=== PATIENT | male | born 1935 | race Caucasian/White ===

== ENCOUNTER 2017-06-03 13:44 | Inpatient (IN) ==
[2017-06-03 14:25] LABS: MANUAL DIFF NEEDED? NO
[2017-06-03 14:31] LABS: BASO% 0.2 % (0.0-0.8); EOS# 0.22 X1000 (0.0-0.7); EOS% 3.9 % (0.0-10.0); HEMATOCRIT 22.6 % (42.0-52.0); HEMOGLOBIN 6.8 g/dL (14.0-18.0); LYMPH# 1.91 X1000 (1.2-3.4); LYMPH% 33.9 % (20.5-51.1); MCH 25.9 PG (27-31); MCHC 30.1 g/dL (33-37); MCV 85.9 FL (81-99); MONO# 0.77 X1000 (0.11-0.59); MONO% 13.7 % (1.7-9.3); MPV 10.7 FL (7.4-10.4); NEUT% 48.3 % (42.2-75.2); PLT 252 X1000 (130-400); RBC 2.63 XMIL (4.7-6.1)
[2017-06-03 15:16] LABS: ALBUMIN 3.9 g/dL (3.5-5.0); CALCIUM 8.8 mg/dL (8.8-10.2); POTASSIUM 4.1 mmol/L (3.5-5.1); TOTAL BILIRUBIN 0.1 mg/dL (0.20-1.00); TOTAL PROTEIN 6.7 g/dL (6.3-8.3)
[2017-06-03] MEDS ORDERED: NS 1,000 ML IV SCH (19:00)
[2017-06-03 19:39] LABS: URINE SOURCE CLEAN CATCH
[2017-06-03 20:01] LABS: BILIRUBIN URINE NEGATIVE (NEGATIVE); BLOOD URINE LARGE (NEGATIVE); COLOR BROWN; GLUCOSE URINE NEGATIVE (NEGATIVE); LEUKOCYTES URINE SMALL (NEGATIVE); NITRITE URINE NEGATIVE (NEGATIVE); PH URINE 6.5; PROTEIN URINE 100 mg/dL (NEGATIVE); SP GRAVITY URINE 1.006; TURBIDITY URINE TURBID (CLEAR); UR EPITHELIAL CELLS <10 /HPF (<10); URINE BACTERIA NEGATIVE /HPF; URINE CULTURE NEEDED? YES; URINE MICRO REVIEW NEEDED? YES; URINE RBC TNTC /HPF (<10); UROBILINOGEN URINE NORMAL (NORMAL)
[2017-06-03 20:06] LABS: URINE CASTS NONE SEEN; URINE CRYSTALS NONE SEEN; URINE SMALL ROUND CELLS NONE SEEN
[2017-06-03] MEDS: CATAPRES PO PRN (20:22)
[2017-06-04] MEDS: CATAPRES PO PRN ×2 (04:22→13:01)
[2017-06-04 06:00] LABS: HEMATOCRIT 27.8 % (42.0-52.0); HEMOGLOBIN 8.9 g/dL (14.0-18.0); MCH 27.6 PG (27-31); MCV 86.3 FL (81-99); MPV 12.1 FL (7.4-10.4); RBC 3.22 XMIL (4.7-6.1)
[2017-06-04 06:23] LABS: AGAP 12; BUN 22 mg/dL (8-22); CALCIUM 8.4 mg/dL (8.8-10.2); CHLORIDE 105 mmol/L (98-107); COSMO 289; HDL 37 mg/dL (35-55); IRON SATURATION 91 %; LDL 56 mg/dL; POTASSIUM 3.9 mmol/L (3.5-5.1); SODIUM 143 mmol/L (136-145); TCO2 26 mmol/L (25-35); TIBC 281 ug/dL; TOTAL IRON 257 ug/dL (53-167); TRIGLYCERIDES 113 mg/dL (39-160); UNBOUND IRON 24 ug/dL (112-346); VLDL 23 mg/dL
[2017-06-04] MEDS ORDERED: BYSTOLIC PO SCH (10:45)
[2017-06-04] MEDS ORDERED: BENICAR PO SCH (10:45)
[2017-06-04 12:32] VITALS: BP 197/69
[2017-06-04] MEDS ORDERED: ELMIRON PO SCH (13:00)
[2017-06-04] MEDS ORDERED: LIPITOR PO SCH (21:00)
[2017-06-05] MEDS ORDERED: LOZOL PO SCH (09:00)
== END 2017-06-04 14:24 | disposition home or self-care (01) ==
LOC: ED 13:44 → 4N 17:46 → SUATTDRO 17:46
PROVIDERS: ATTEND Internal Medicine

== ENCOUNTER 2019-04-26 22:31 | Observation (INO) ==
[2019-04-26] MEDS ORDERED: NS 1,000 ML IV ONE (23:04)
[2019-04-26 23:56] LABS: BASO# 0.01 X1000 (0.0-0.2); BASO% 0.1 % (0.0-0.8); EOS% 4.2 % (0.0-10.0); HEMATOCRIT 30.5 % (42.0-52.0); HEMOGLOBIN 9.6 g/dL (14.0-18.0); IMM GRAN# 0.02 X1000 (0.0-0.04); IMM GRAN% 0.3 % (0.0-0.5); LYMPH# 2.34 X1000 (1.2-3.4); MCH 26.7 PG (27-31); MCHC 31.5 g/dL (33-37); MCV 84.7 FL (81-99); MONO# 0.89 X1000 (0.11-0.59); MONO% 12.5 % (1.7-9.3); MPV 10.8 FL (7.4-10.4); NEUT# 3.54 X1000 (1.4-6.5); NEUT% 49.9 % (42.2-75.2); PLT 162 X1000 (130-400); RDW 14.5 % (11.5-14.5)
[2019-04-27 00:12] LABS: INR 1.12; PROTIME 14.5 Seconds (11.0-16.0)
[2019-04-27 00:13] LABS: PTT 35.2 Seconds (22.3-41.8)
[2019-04-27 00:23] LABS: AGAP 13; ALB/GLOB RATIO 1.3; ALBUMIN 3.8 g/dL (3.5-5.0); ALKALINE PHOSPHATASE 107 U/L (32-122); BUN 44 mg/dL (8-22); CHLORIDE 103 mmol/L (98-107); COSMO 286; CREATININE 2.1 mg/dL (0.7-1.2); ESTIMATED GFR 30; GLUCOSE 113 mg/dL (70-104); GOT 16 U/L (10-34); GPT 10 U/L (10-44); SODIUM 137 mmol/L (136-145); TCO2 21 mmol/L (25-35); TOTAL BILIRUBIN < 0.15 mg/dL (0.20-1.00); TOTAL PROTEIN 6.7 g/dL (6.3-8.3)
[2019-04-27 00:58] LABS: URINE SOURCE CLEAN CATCH
[2019-04-27 01:14] LABS: BILIRUBIN URINE NEGATIVE (NEGATIVE); BLOOD URINE MODERATE (NEGATIVE); COLOR YELLOW; GLUCOSE URINE NEGATIVE (NEGATIVE); KETONE URINE NEGATIVE (NEGATIVE); LEUKOCYTES URINE MODERATE (NEGATIVE); NITRITE URINE NEGATIVE (NEGATIVE); PH URINE 5.5; PROTEIN URINE 100 mg/dL (NEGATIVE); SP GRAVITY URINE 1.011; UR EPITHELIAL CELLS <10 /HPF (<10); URINE BACTERIA NEGATIVE /HPF; URINE RBC TNTC /HPF (<10); UROBILINOGEN URINE NORMAL (NORMAL)
[2019-04-27 01:17] LABS: TURBIDITY URINE CLEAR (CLEAR)
--- NOTE | 2019-04-27 01:35 | EKG Report ---
Test Performed on : 04/27/2019 01:03:16 AM Test Reason : weakness Blood Pressure : / mmHG Vent. Rate : 068 BPM Atrial Rate : 068 BPM P-R Int : 178 ms QRS Dur : 076 ms QT Int : 406 ms P-R-T Axes : 026 011 119 degrees QTc Int : 431 ms Normal sinus rhythm. Left ventricular hypertrophy with repolarization abnormality Abnormal ECG When compared with ECG of 18-MAR-2019 13:29, T wave inversion less evident in Inferior leads Unconfirmed Result
--- NOTE | 2019-04-27 02:49 | PROVIDER DOCUMENTATION ---
This chart was entered by Mirela Cedeno Scribe, acting as scribe for Sandeep Baron MD. HPI-General Adult - General Chief Complaint: General Adult Stated Complaint: decreased responsiveness Time Seen by Provider: 04/26/19 22:40 Source: patient Allergies/Adverse Reactions: Patient Allergies Allergy/AdvReac Type Severity Reaction Status Date / Time No Known Allergies Allergy Verified 04/26/19 23:10 Home Medications: Home Medication List Medication Instructions Recorded Confirmed Last Taken Type Calcium Carbonate/Vitamin D3 [Hm 1 tab PO DAILY 04/26/19 04/26/19 Unknown History Calcium 600-Vit D3 800 Tab] Indapamide 1.25 mg PO DAILY 04/26/19 04/26/19 Unknown History Mirtazapine 30 mg PO DAILY 04/26/19 04/26/19 Unknown History Multivits,Ca,Minerals/Iron/FA 1 tab PO DAILY 04/26/19 04/26/19 Unknown History [Thera-M Tablet] Nebivolol HCl [Bystolic] 10 mg PO DAILY 04/26/19 04/26/19 Unknown History Olmesartan Medoxomil 40 mg PO DAILY 04/26/19 04/26/19 Unknown History Ondansetron [Zofran] 4 mg PO PRN PRN 04/26/19 04/26/19 Unknown History Pentosan [Elmiron] 100 mg PO TID 04/26/19 04/26/19 Unknown History Tramadol HCl 50 mg PO 4XDAY PRN PRN 04/26/19 04/26/19 Unknown History Vitamin B Complex [B Complex] 1 tab PO DAILY 04/26/19 04/26/19 Unknown History Zinc Sulfate 220 mg PO BID 04/26/19 04/26/19 Unknown History - History of Present Illness -Gen Adult Nature of Presenting Problems: Pt is 83 M presenting to ED via EMS. Pt sts that he was watching a ball game and the next thing he knows he woke up to fire rescue in his . Pt sts that he was told that his family first found him to be unresponsive and then started doing compressions while calling for ambulance. Pt sts that he feels okay now, just a little weak. Location of Pain/Injury: reports: none Pain Radiation: reports: no radiation Quality of Pain: reports: none Severity: reports: mild Onset/Duration: reports: just prior to arrival Timing: reports: gone now Context/Activities at Onset: reports: none Modifying Factors: improves with: nothing Associated Symptoms: reports: syncope. denies: chest pain, fever/chills, nausea, sensory/motor loss, vomiting Similar Symptoms Previously?: No Recently seen or treated by another doctor?: No Review of Systems - Adult - REVIEW OF SYSTEMS - ADULT Constitutional: reports: no symptoms reported. denies: chills, fever Eyes: reports: no symptoms reported Ears, Nose, Mouth & Throat: reports: no symptoms reported Cardiovascular: reports: syncope. denies: chest pain Respiratory: reports: no symptoms reported Gastrointestinal: reports: no symptoms reported. denies: abdominal pain, diarrhea, nausea, vomiting Genitourinary: reports: no symptoms reported Musculoskeletal: reports: no symptoms reported Integumentary: reports: no symptoms reported Neurological: reports: no symptoms reported. denies: dizziness/vertigo, headache/migraines Psychiatric: reports: no symptoms reported Endocrine: reports: no symptoms reported Hematologic/Lymphatic: reports: no symptoms reported Allergic/Immunologic: reports: no symptoms reported All Other Systems: Reviewed and Negative Past History - Adult - PAST MEDICAL HISTORY-ADULT Review of Records: reports: Old Records Reviewed, Nursing Assessment Review, Medications Reviewed, Social history reviewed & non-contributory. Major Childhood Illnesses: reports: denies history Cardiovascular: reports: HTN, hyperlipidemia Respiratory: reports: denies history Gastrointestinal: reports: cancer (stomach) Obstetrical/Gynecological: reports: denies history Genitourinary: reports: retention, prostate cancer, other (hematuria) Musculoskeletal: reports: denies history Neurological: reports: denies history Endocrine/Immune: reports: denies history Other Conditions: reports: denies history - PRIOR SURGERIES/PROCEDURES Surgical/Procedure History: reports: other (cystoscopy, TURP) - PRIOR HOSPITALIZATIONS Prior Hospitalizations: reports: none - IMMUNIZATION STATUS Childhood Immunizations: See Nurse Assessment Flu Vaccine: See Nurse Assessment - FAMILY HISTORY Family History: reviewed, not pertinent - SOCIAL HISTORY Smoking: quit greater than 1 year Substance Use: none/never Alcohol Use Frequency: never Living Situation: family Physical Exam-General - PHYSICAL EXAM-ADULT Initial Vital Signs Reviewed: Yes - CONSTITUTIONAL General Appearance: appears well, alert, no apparent distress, other (pt is non toxic in appearance) - EYES Eyes: PERRL/EOMI, pink conjunctivae - HEAD, EARS, NOSE, MOUTH & THROAT HENMT: normocephalic/atraumatic, moist mucous membranes, normal ENT inspection - NECK Neck: non-tender, full range of motion, supple - RESPIRATORY Respiratory: lungs clear - CARDIOVASCULAR Cardiovascular: regular rate, rhythm - GASTROINTESTINAL (ABDOMEN) Abdominal Exam: non tender, soft - LYMPHATIC Lymphatic: no adenopathy - MUSCULOSKELETAL Back Exam: normal inspection Extremity: normal range of motion, non-tender, normal gait, normal inspection - SKIN Integumentary: normal color, warm/dry - NEUROLOGIC Neurologic: grossly normal - PSYCHIATRIC Psych/Mental Status: normal mood/affect, normal thought content, normal thought process, oriented x 3 Progress - PLAN OF CARE/RESULTS Progress/Plan/Lab Results: Vital Signs - 8 hr 04/26/19 22:42 Temperature 98 F Pulse Rate 63 Respiratory Rate 15 Blood Pressure 193/84 O2 Sat by Pulse Oximetry 97 Result Diagrams: 04/26/19 20:16 04/26/19 20:16 - EKG 1 Time of EKG reading by physician:: 01:03 EKG Read and Signed by:: Sandeep Baron EKG Interpretation (*Must complete 3 of following elements*): Abnormal (normal sinus rhythm, Left ventricular hypertrophy with repolarization abnormality. Abnormal ECG) Rate: 68 Rhythm: NSR Mcgrew: normal QRS: normal MT Interval: normal Departure - Departure Date of Disposition Decision: 04/27/19 Time of Disposition Decision: 02:48 DIAGNOSIS: Syncope Qualifiers: Syncope type: unspecified Qualified Code(s): R55 - Syncope and collapse Disposition: ADMITTED INPATIENT 09 Certified Medical Emergency: Emergent Condition: Stable Referrals and Follow-Ups: Floyd Green [Primary Care Provider] - - Critical Care Note This patient required my direct & personal management of CC.: No Attestation - Physician/ LIBERTAD Attestation Patient care was provided by Advanced Practice Provider:: No The physician spent face to face time with patient:: Yes Advanced Practice Provider documentation review:: Supervising physician onsite and consulted in the evaluation and care of this patient. The physician did have a face to face encounter with the patient. This chart was documented by the indicated scribe, (Mirela Cedeno Scribe) and accurately reflects the services I performed and decisions made by me, Sandeep Baron MD, as attested by the provider's signature.
[2019-04-27] MEDS ORDERED: ULTRAM PO PRN (04:59)
[2019-04-27] MEDS ORDERED: TYLENOL PO PRN (05:01)
[2019-04-27] MEDS ORDERED: ZOFRAN IV PRN (05:01)
[2019-04-27] MEDS ORDERED: LOZOL PO SCH ×2 (05:12→09:00)
[2019-04-27] MEDS ORDERED: BYSTOLIC PO SCH ×2 (05:15→09:00)
[2019-04-27] MEDS ORDERED: BENICAR PO SCH ×2 (05:15→09:00)
--- NOTE | 2019-04-27 06:20 | Diag Imaging Result Doc PS360 ---
CHEST-1 VIEW - 04/26/2019 INDICATION: weakness COMPARISON: 01/07/2017 FINDINGS: There is a new right chest port in good position. The lungs are clear. Heart size is normal. No pneumothorax or pleural effusion. IMPRESSION: Negative exam. Electronically signed by Wil Hinds 04/27/2019 6:18 AM
--- NOTE | 2019-04-27 07:31 | HISTORY AND PHYSICAL ---
PRIMARY CARE PROVIDER: Dr. Floyd Green. DATE AND TIME: 04/27/2019 at 0330. CHIEF COMPLAINT: Syncope. HISTORY OF PRESENT ILLNESS: Mr. Patel is an 83-year-old male who states that he was sitting in a chair watching the football game and that is the last thing he remembers. He states that he thinks he fell asleep though the next thing he remembered was lying on his living room floor with lots of people standing around him. His that was at bedside stated that they tried to awake Mr. Patel up though could not get him. They called his son and ended up coming over, who also tried to wake him up though could not. They said they felt this pulse, and it was present though was slow. They did decide to do just a couple of chest compressions, and the patient woke up immediately. The patient except for some weakness prior to sitting down to watch the game denied any symptoms prior to or after he had woken. He denies any headache, dizziness, visual disturbances, chest pain or shortness of breath. He denies any abdominal pain, nausea, vomiting, or diarrhea. He denies any dysuria or urinary frequency. He denies any pain, numbness, tingling or swelling of the extremities. He denies any fever, body aches, or chills. His son reports that he has done this one time before though this was not recently. They do state that he does receive immunotherapy treatments for bladder cancer every other week with Dr. Espinoza. He did receive a treatment on Saturday or . They state that usually for the few days after his treatment that he will not feel well and will fill weak sometimes, but this is a common thing that he experiences. At this time, the patient is alert and oriented x4. He has not had any focal neurological deficits noted. He has equal hand grasps and muscle strength bilaterally. He is denying any numbness or tingling in extremities. His family denies him having any speech disturbances either. Upon arrival to the ER, patient's vital signs were temperature 98 degrees, heart rate 63, respirations 15, blood pressure is 193/84 with oxygen saturation of 97%. The patient's blood pressure was elevated. He states that he has not missed any doses of his blood pressure medicines, and that he takes these in the morning. He states at home his blood pressure normally does run in the 170s systolically. EKG showed a normal sinus rhythm with a left ventricular hypertrophy at a rate of 68 with a QTc of 431. CT Head without contrast showed no acute intracranial abnormality. Chest x-ray showed no acute abnormality either. We are awaiting official radiology. Laboratory results revealed some mild anemia with a hemoglobin of 9 and hematocrit of 30 though this does appear to be the patient's baseline. He also does have chronic kidney disease with a creatinine of 2.1 though this does appear to be pretty much at his baseline as well. Troponin was negative. The patient did receive 1 L normal saline bolus in the ER. He will be placed for observation services for further evaluation of his syncope. REVIEW OF SYSTEMS: A 14 point review of systems was conducted with the patient, and all were negative except for pertinent positives mentioned above in HPI. PAST MEDICAL HISTORY: 1. Coronary artery disease status post cardiac stent placement. 2. Erectile dysfunction. 3. History of gastric cancer with resection followed by radiation chemotherapy in 2007. 4. History of prostate cancer, Madelin 3 to 4, status post radiation in 2001. 5. Hypertension. 6. History of fossa navicularis. 7. History of proximal bulbar strictures. 8. Urinary retention. 9. Currently, receiving treatment for bladder cancer with immunotherapy with Dr. Espinoza every 2 weeks. He is also followed by Dr. Garibay. PAST SURGICAL HISTORY: 1. History of numerous cystoscopy's. 2. Surgery for clot evacuation. 3. Partial gastrectomy. [place] 1. 4. Radiation for prostate cancer as mentioned above. 5. Placement of right subclavian port secondary to poor intravenous access. SOCIAL HISTORY: The patient states that he occasionally smoked when he was in his 30s, though has been quit since then. He has not drank any alcohol. He has no known history of illicit drug use. He is and his was present at bedside during our examination. FAMILY HISTORY: He reports that his mother and father both lived into their 90s, and were otherwise healthy. They from natural causes of old age. ALLERGIES: Patient has no known allergies. HOME MEDICATIONS: 1. Calcium-vitamin D3 800 tablet 1 tablet p.o. daily. 2. Indapamide 1.25 mg p.o. daily. 3. Mirtazapine 30 mg p.o. daily. 4. Thera M tablet 1 tablet p.o. daily. 5. Bystolic 10 mg p.o. daily. 6. Olmesartan 40 mg p.o. daily. 7. Zofran 4 mg p.o. p.r.n. as directed for nausea. 8. Elmiron 100 mg p.o. t.i.d. 9. Tramadol 50 mg p.o. 4 times a day p.r.n. for pain. 10. Vitamin B complex 1 tablet p.o. daily. 11. Zinc sulfate 220 mg p.o. b.i.d. DIAGNOSTIC DATA/LABORATORY RESULTS: 1. White blood cell count is 7110, hemoglobin 9.6, hematocrit 30.5, and platelet count is 162,000. PT 14.5, INR 1.12, and PTT is 35.2. Sodium 137, potassium 4, chloride 103. Serum bicarb is 21, BUN 44, and creatinine 2.1 with GFR 30. Glucose 113. Calcium 9. Liver function tests within normal limits. Troponin 0.015. ProBNP is 2373. Plasma lactate is 1.4. Urinalysis was obtained via clean catch, and was positive for protein, moderate blood, moderate leukocytes, and was negative for glucose, ketones, nitrites, or bacteria. 2. CT of the head without contrast showed no acute intracranial hemorrhage or process. There was age-related cerebral volume loss. There were bilateral white matter disease likely ischemic microvascular in nature. 3. Chest x-ray shows no acute abnormalities. There is what appears to be a right chest port placement. We are waiting official Radiology over-read. 4. EKG showed normal sinus rhythm with left ventricular hypertrophy with repolarization abnormality at a rate of 68 and QTc of 431. PHYSICAL EXAMINATION: VITAL SIGNS: Temperature 97.8 degrees, heart rate 67, respirations 20, blood pressure was 191/75, and oxygen saturation is 96% on room air. GENERAL: Mr. Patel is a very pleasant 83-year-old male who is resting on the ER stretcher. He was in no acute distress. He was awake, alert, and able to answer questions appropriately. HEENT: Head is atraumatic, normocephalic. Pupils are equal, round, and reactive to light, and were 3 mm bilaterally and brisk. Oral mucosa was moist. Oropharynx clear. NECK: Supple. Trachea midline. CARDIOVASCULAR: Patient has S1-S2 present. No murmurs, gallops, or rubs appreciated with a regular rate and rhythm. PULMONARY: Patient has symmetrical chest expansion bilaterally. Lung sounds are clear to auscultation in bilateral full steele. ABDOMEN: Soft. Nontender and nondistended. Bowel sounds are present in all 4 quadrants, and were normoactive. EXTREMITIES: No cyanosis or edema noted. Pulse, motor, and sensory were intact in all extremities. Radial and pedal pulses are 2+ bilaterally. INTEGUMENTARY: The patient's skin is pink, warm, and dry. NEUROLOGICAL: Patient is alert and oriented to person, place, time, and situation. There is no facial droop noted. There is no arm drift noted either. The patient has equal hand grasp and muscle strength bilaterally. The patient's speech is clear and understandable. He is able to move all extremities. He is denying any numbness or tingling. At this time, there are no focal neurological deficits noted. ASSESSMENT AND PLAN: 1. Possible syncopal episode. The patient reports that he did sit down in his chair, and the next thing he knew he woke up and there was lots of people standing around him. We are unsure at this time if this was a syncopal episode or if the patient was sleeping really hard. Other than feeling weak since receiving his immunotherapy treatment earlier in the week, he has reported no other symptoms at this time. We will continue with the series of cardiac enzymes. We will perform an echocardiogram in the morning. As mentioned above, his CT of his head showed no acute intracranial abnormality. We will continue to follow closely. He will be on continuous cardiac telemetry with q.4 hours vital signs. 2. Chronic kidney disease. At this time, the patient's renal function does appear to be at baseline. We will continue to monitor this closely. We will avoid nephrotoxic medications and renally dose medicines as necessary. We will continue to follow. 3. Hypertension. The patient's blood pressure is slightly elevated at this time. We will go ahead and administer his regularly prescribed morning medications. The patient states he normally takes these around 05:30 to 06:00 at home. 4. Current History urothelial carcinoma for which he is receiving immunotherapy for. He is followed by Dr. Espinoza and Dr. Garibay. The patient did have blood and moderate leukocytes noted in his urine, though he is asymptomatic at this time. This is likely related to his current bladder cancer. We will continue to monitor this closely. We will order a urine culture. 5. Deep vein thrombosis prophylaxis. He will be provided with sequential compression devices. The patient has been placed on the medical floor telemetry. He will have vital signs q.4 hours. Do strict intake and output, and incentive spirometry. He will be on a heart healthy diet. Further orders and recommendations pending hospital course, diagnostic studies, and physician evaluation. Dictated by SHALONDA Caceres for Zac Kathleen MD cc: Floyd Green MD agree with the above. the following is my own face to face assessment. heart: RRR, lungs: CTAB. possible syncopal episode but may have just been very asleep will check out his heart and monitor on telemetry. JILLIAN
[2019-04-27 07:43] LABS: CALCIUM 8.5 mg/dL (8.8-10.2); MAGNESIUM 2.2 mg/dL (1.5-2.7); POTASSIUM 4.1 mmol/L (3.5-5.1)
--- NOTE | 2019-04-27 07:52 | Diag Imaging Result Doc PS360 ---
EXAM: CT HEAD W/O CONTRAST INDICATION: syncope TECHNIQUE: This exam was performed using automated exposure control, adjustment of mA or kV according to patient size, and/or use of iterative reconstruction technique. COMPARISON: 09/29/2013 FINDINGS: There is moderate diffuse brain atrophy and moderate white matter microangiopathy that may be marginally worse than the prior study in 2013. There is no definite acute infarct given the limited sensitivity of CT versus MRI. There is no discrete intracranial mass, mass effect, or intracranial hemorrhage. The surrounding soft tissues and bony structures are essentially unremarkable. IMPRESSION: Atrophy and chronic appearing white matter changes as described. No definite acute intracranial pathology by CT. Electronically signed by Mandeep Stanley 04/27/2019 7:49 AM
[2019-04-27] MEDS ORDERED: REMERON PO SCH (09:00)
[2019-04-27] MEDS ORDERED: VICON-C PO SCH (09:00)
[2019-04-27] MEDS ORDERED: CALTRATE 600 + D PO SCH (09:00)
[2019-04-27] MEDS ORDERED: THERA M PLUS PO SCH (09:00)
[2019-04-27] MEDS ORDERED: ZINC SULFATE PO SCH (09:00)
[2019-04-27 09:14] LABS: BASO# 0.01 X1000 (0.0-0.2); BASO% 0.1 % (0.0-0.8); HEMOGLOBIN 9.5 g/dL (14.0-18.0)
[2019-04-27] MEDS: ELMIRON PO SCH ×2 (09:24→13:57)
[2019-04-27 10:20] LABS: EOS# 0.23 X1000 (0.0-0.7); HEMATOCRIT 30.5 % (42.0-52.0); IMM GRAN# 0.02 X1000 (0.0-0.04); IMM GRAN% 0.3 % (0.0-0.5); LYMPH# 2.02 X1000 (1.2-3.4); LYMPH% 26.6 % (20.5-51.1); MCH 26.6 PG (27-31); MCHC 31.1 g/dL (33-37); MCV 85.4 FL (81-99); MONO# 0.73 X1000 (0.11-0.59); MONO% 9.6 % (1.7-9.3); MPV 9.9 FL (7.4-10.4); NEUT# 4.59 X1000 (1.4-6.5); NEUT% 60.4 % (42.2-75.2); PLT 201 X1000 (130-400); RBC 3.57 XMIL (4.7-6.1); RDW 14.6 % (11.5-14.5)
[2019-04-27 11:35] VITALS: BP 188/65
--- NOTE | 2019-04-27 13:41 | ECHO REPORT ---
ORDER DATE: 04/27/2019 INDICATIONS: Syncope. FINDINGS: 1. The right atrium appears normal in size. 2. Trace tricuspid regurgitation. RV systolic pressure of 26. 3. Normal RV size and systolic function. 4. No significant pulmonic insufficiency. 5. Mild left atrial enlargement with a volume index of 31. 6. No mitral valve prolapse. Mild mitral regurgitation. No evidence of mitral stenosis. 7. Normal LV size, end-diastolic dimension of 4.1. Suggestion of mild to moderate left ventricular hypertrophy with an interventricular septal wall thickness of 1.4 cm. Normal LV systolic function. Calculated EF of 67%. 8. Aortic valve appears to open well. It is sclerotic but does not appear to be stenotic. There is trace insufficiency with no stenosis. 9. Aorta appears normal in visualized segments. 10. No pericardial effusion seen. cc: Aj Rodriguez MD
--- NOTE | 2019-04-28 12:58 | Carotid Study ---
DATE: 04/27/2019 PROCEDURE: Bilateral carotid duplex. REQUESTING PHYSICIAN: Benito Morales MD. INTERPRETING PHYSICIAN: Noble Ashby MD. TECH: [place]. INDICATIONS: Syncope. FINDINGS: In the right carotid artery system in the bulb extending to the proximal internal carotid artery, there is a broad-based calcified plaque that causes slight disturbance of flow but does not significantly elevate the velocity. In the left, there is a more focal appearing smooth plaque into the carotid bulb, again it does not cause significant elevation of velocity. SUMMARY: Mild degree of atherosclerotic changes noted in the bilateral carotid bulbs morphologically slightly worse in the right, however, velocities remain in the 0-39% range. The vertebrals are antegrade bilaterally. cc: MD Benito Hill MD
== END 2019-04-27 14:23 | disposition home or self-care (01) ==
LOC: SUPCPDRO → ED 22:31 → SUATTDRO 04-27 04:10 → 4N 04-27 04:10 → INTOOBSV 04-27 04:10
PROVIDERS: ATTEND Internal Medicine

== ENCOUNTER 2019-06-18 12:02 | Inpatient (IN) ==
[2019-06-18] MEDS ORDERED: DIPRIVAN 1% ONE (12:40)
[2019-06-18] MEDS ORDERED: ROBINUL ONE (12:41)
[2019-06-18] MEDS ORDERED: XYLOCAINE-MPF 2% ONE (12:41)
[2019-06-18] MEDS ORDERED: KEFZOL 1 GM/D5W 1 GM/50 ML IVPB ONE (13:07)
[2019-06-18] MEDS ORDERED: LR 1,000 ML ONE (13:08)
[2019-06-18] MEDS ORDERED: FENTANYL ONE (14:22)
[2019-06-18] MEDS ORDERED: DECADRON ONE (14:34)
[2019-06-18] MEDS ORDERED: ZOFRAN ONE (14:34)
--- NOTE | 2019-06-18 15:07 | Diag Imaging Result Doc PS360 ---
EXAM: FLUROSCOPY CYSTO HISTORY: T CELL CA, ATTEMPTED STENT EXCHANGE TECHNIQUE: Six views COMPARISON: None. FINDINGS: There are bilateral ureteral stents. Attempted stent exchange. This was unsuccessful. Electronically signed by Afshin Pickard 06/18/2019 3:04 PM
[2019-06-18] MEDS ORDERED: EPHEDRINE ONE (15:10)
[2019-06-18] MEDS ORDERED: ZOSYN IV ONE (15:15)
[2019-06-18] MEDS ORDERED: NEO-SYNEPHRINE ONE (15:30)
[2019-06-18] MEDS ORDERED: STERILE WATER INJ. ONE (15:32)
[2019-06-18] MEDS ORDERED: ZOSYN 3.375 GM in NS 50 ML IV ONE (16:00)
[2019-06-18] MEDS ORDERED: NEOSTIGMINE ONE (16:42)
[2019-06-18] MEDS ORDERED: BRIDION ONE (16:49)
[2019-06-18] MEDS: DILAUDID ONE ×4 (17:20→17:36)
[2019-06-18] MEDS ORDERED: NS 1,000 ML ONE (17:42)
[2019-06-18] MEDS ORDERED: REGLAN PO PRN (18:22)
[2019-06-18] MEDS ORDERED: MORPHINE IV PRN (18:39)
[2019-06-18] MEDS ORDERED: SODIUM CHLORIDE 0.9% INJ PRN (18:45)
[2019-06-18] MEDS ORDERED: NORCO-5 PO PRN (18:45)
[2019-06-18] MEDS ORDERED: NORCO-10 PO PRN (18:45)
[2019-06-18] MEDS ORDERED: BENADRYL LIQUID PO PRN (18:45)
[2019-06-18] MEDS ORDERED: LABETALOL IV PRN (18:45)
[2019-06-18] MEDS ORDERED: NORCO-7.5 PO PRN (18:45)
[2019-06-18] MEDS ORDERED: DITROPAN PO PRN (18:45)
[2019-06-18] MEDS: NS 1,000 ML IV SCH (19:06)
--- NOTE | 2019-06-18 19:20 | GENERAL SURGERY CONSULTATION ---
DATE: 06/18/2019 INTRAOPERATIVE CONSULT: Called to see the patient while Dr. Garibay was doing a cystoscopy on the patient. There was concern about a bladder wall tear, and seeing intestinal contents and intra- abdominal contents. The patient has a significant history of cancer and metastatic cancer with treatment including radiation. Given this, we had a discussion with the family and took the patient emergently to the operating room, performed a standard lower midline incision. He had significant adhesions at this time, and I assisted Dr. Garibay with his procedure. He did not have any obvious injury to his intestines noted during the surgery. He did have a closely adherent sigmoid colon to his bladder, but I felt as though this was not causing any acute issues. We decided to leave this alone for now. I was unable to get a full history and physical exam given the circumstances, but assisted Dr. Garibay during the procedure. Please see his dictation. cc: MD Dick Arcos MD MTDD
--- NOTE | 2019-06-18 19:35 | OPERATIVE NOTE ---
PROCEDURE DATE: 06/18/2019 SURGEON: Dr. Garibay. CHICK SEXER SURGEON: [employer] Developer surgeon for the exploratory laparotomy is Dr. Veloz. 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 ANESTHESIA: For the cystoscopic exam, general via laryngeal mask. For the exploratory laparotomy, general endotracheal. FINDINGS: Cystoscopic exam: Urethra with metastatic cancer with a very narrowed urethra of about 20-Taiwanese from the meatus all the way to the external sphincter. A 21-Taiwanese sheath cystoscope was able to be pushed through the urethra through the external sphincter. Prostate status post radiation therapy very fixed with regrowth of the lateral lobes. Bladder neck significantly elevated and fixed. There was a perforation or erosion of the posterior bladder neck/proximal urethra at the 6 o'clock position. The 21-Taiwanese rigid scope would not go into the bladder. It was removed, and the flexible ACMI scope was able to go up into the bladder where stone-encrusted double-J stents were noted, multiple tumor nodules from his known urothelial carcinoma. The flexible cystoscope was removed. Because the perforation appeared to go into the peritoneal cavity, it was decided to do exploratory laparotomy. DESCRIPTION OF PROCEDURE: After informed consent was obtained, he was taken to the main OR cystoscopy room and placed in the supine position. General anesthesia via laryngeal mask was achieved. He was then placed in the low lithotomy position and prepped and draped in the usual sterile fashion for lower abdominal surgery and cystoscopic exam. His indwelling Pozo catheter was removed, and the 21-Taiwanese sheath cystoscope had to be pushed through the urethra and to the external sphincter. It was advanced up through the prostatic urethra and into a cavity that was initially thought to be the bladder but was then seen to be the peritoneal cavity. The cystoscope was removed, and a flexible ACMI cystoscope was passed through the patient's urethra, prostate, and was able to be flexed up to go up into the bladder with findings as noted above. Because of the perforation and going into the peritoneal cavity, it was decided to go to an open room and do an exploratory laparotomy. The flexible scope was removed. The patient was taken to an open room. The patient then underwent general endotracheal anesthesia. While in the supine position, he was then prepped and draped in the usual sterile fashion for abdominal surgery. A lower midline skin incision was made from the top of the pubic bone to just to the left of the umbilicus. This was taken through subcutaneous tissue with the Bovie electrocautery. The abdominal rectus fascia was opened to the limits of the skin incision. The posterior sheath was opened. The peritoneum was opened, and a large amount of irrigant from the cystoscopic exam was removed. The patient had undergone previous radiation therapy for prostate cancer and is currently undergoing immunotherapy for his metastatic bladder cancer. He had significant metastatic nodules that were palpable. The area above the pubic bone was explored, and finally the bladder was found and entered. The double-J stents were visualized. A 0.035 ZIPwire was passed through the right double-J stent and was thought to be going into the right renal pelvis but was not. The double-J stent had some stone incrustation and it was removed. The left side was wide open, and the 0.035 ZIPwire easily passed up into the left kidney. The old double-J stent was removed, and a new 7-Taiwanese, 24 cm double-J stent was passed over the ZIPwire and up into the kidney. A plain film of the abdomen will be obtained to verify stent position. The stent removal string was removed. The stent was visualized in the bladder. A stab incision was made in the right lower quadrant. An 18-Taiwanese Pozo catheter was passed through the stab incision through the abdominal rectus muscle and placed in the bladder at the extreme right side of the incision. The bladder mucosa was reapproximated with a running suture of 2-0 chromic. A reinforcing suture was placed behind this. Then 10 mL of sterile water were placed in the suprapubic tube balloon, and it was pulled up against the bladder. It was in good position. A stab incision was made in the left lower quadrant, and a 19-Taiwanese Misbah drain was placed. The abdominal rectus fascia was reapproximated with the #1 Maxon. The subcutaneous tissue was reapproximated with a running suture of 3-0 Vicryl. The skin was reapproximated with clips. Island dressings were placed. He tolerated the procedure well. Estimated blood loss 25 mL. He was taken to the recovery room in good condition. cc: Dick Garibay MD
[2019-06-18] MEDS: ZOSYN 3.375 GM in NS 50 ML IV SCH (20:29)
[2019-06-18] MEDS ORDERED: ZOSYN 3.375 GM in NS 50 ML IV SCH (21:00)
[2019-06-18] MEDS: ELMIRON PO SCH (21:33)
[2019-06-18] MEDS: ZINC SULFATE PO SCH (21:33)
[2019-06-18] MEDS: COLACE PO SCH (21:33)
[2019-06-18] MEDS: PEPCID PO SCH (21:34)
[2019-06-19] MEDS: ZOSYN 3.375 GM in NS 50 ML IV SCH ×2 (02:04→08:16)
[2019-06-19] MEDS: NS 1,000 ML IV SCH ×2 (02:06→08:16)
[2019-06-19 06:01] LABS: HEMATOCRIT 24.1 % (42.0-52.0); HEMOGLOBIN 7.1 g/dL (14.0-18.0); MCH 25.8 PG (27-31); MCHC 29.5 g/dL (33-37); MCV 87.6 FL (81-99); RBC 2.75 XMIL (4.7-6.1); RDW 13.8 % (11.5-14.5); WBC 16.54 X1000 (4.8-10.8)
[2019-06-19 06:19] LABS: CALCIUM 8.5 mg/dL (8.8-10.2); CREATININE 2.7 mg/dL (0.7-1.2); POTASSIUM 5.1 mmol/L (3.5-5.1)
[2019-06-19] MEDS: BENICAR PO SCH (08:16)
[2019-06-19] MEDS: THERA M PLUS PO SCH (08:17)
[2019-06-19] MEDS: REMERON PO SCH (08:17)
[2019-06-19] MEDS: VICON-C PO SCH (08:17)
[2019-06-19] MEDS: BYSTOLIC PO SCH (08:17)
[2019-06-19] MEDS: ZINC SULFATE PO SCH ×2 (08:17→21:12)
[2019-06-19] MEDS: ELMIRON PO SCH ×3 (08:17→21:13)
[2019-06-19] MEDS: LOZOL PO SCH (08:17)
[2019-06-19] MEDS: CALTRATE 600 + D PO SCH (08:17)
[2019-06-19] MEDS: NORVASC PO SCH (08:17)
[2019-06-19] MEDS: PEPCID PO SCH ×2 (08:17→21:13)
[2019-06-19] MEDS: COLACE PO SCH ×2 (08:17→21:12)
[2019-06-19] MEDS ORDERED: APRESOLINE IV PRN (09:19)
--- NOTE | 2019-06-19 09:30 | Diag Imaging Result Doc PS360 ---
EXAM: KUB ABDOMEN HISTORY: Left uretal stent placement TECHNIQUE: Single view COMPARISON: None. FINDINGS: There are midline skin pam. A catheter overlies the lower left abdomen and pelvis and there are surgical clips in the upper abdomen. Stool is found in the proximal colon. Mild air distended loops of small bowel in the left upper quadrant. No organomegaly. Prominent degenerative spine changes. Left hip arthritis. The bones are osteopenic. There are degenerative changes in the lumbar spine. IMPRESSION: There is an ileus. The upper portion of the ureteral stent is likely in the mid ureter and not the renal pelvis. Electronically signed by Afshin Pickard 06/19/2019 9:27 AM
[2019-06-19] MEDS: DILAUDID ONE (09:40)
--- NOTE | 2019-06-19 14:22 | CONSULTATION ---
DATE OF CONSULTATION: 06/19/2019 CHIEF COMPLAINT: I have been consulted for medical management. This patient is in the ICU. Apparently he was confused during the night. HISTORY OF PRESENT ILLNESS: An 83-year-old male with multiple comorbidities including coronary artery disease status post stent, history of gastric cancer with resection followed by radiation chemotherapy in 2018, history of prostate cancer status post radiation in 2001, erectile dysfunction, hypertension, history of fossa navicularis, history of proximal bulbar strictures, urinary retention, also metastatic urothelial carcinoma with metastasis to the corpora cavernosa and corpus spongiosum with indwelling double-J stents status post cystoscopic exam and exploratory laparotomy. It looks like he has been transferred yesterday to the ICU due to confusion. As per the who is at the bedside, this always happens when he has some kind of procedure and is probably related to medications. It looks like his blood pressure has been slightly elevated. We have restarted this patient on his home medications except ARBs due to his kidney dysfunction. I will also add hydralazine as needed. His medication for pain has been on hold already and I agree with that. His hemoglobin is around 7.1, creatinine is 2.7, which I believe is a little bit elevated compared with baseline, even though he had a new creatinine from 05/21/2019 that was 2.9. He seems to be stable today. As per the , he is much better mentally. He is oriented x2. He is not oriented to time. He states that this is 1984. He is following commands. He does have generalized weakness and probably he should go to a rehab center and/or at least get home health with physical therapy at home. At this point, he denies nausea, vomiting, diarrhea, or constipation. He is not in pain. REVIEW OF SYSTEMS: All the 14 points of review of systems were reviewed, all of them negative except as per HPI. PAST MEDICAL HISTORY: As per HPI. PAST SURGICAL HISTORY: 1. History of numerous cystoscopic exams, including today, open exploratory laparotomy today as well, 06/19/2019. 2. Surgery clot evacuation. 3. Partial gastrectomy, [place] 1. 4. Radiation for prostate cancer and as mentioned above. 5. Placement of right subclavian 4 pore intravenous access before. 6. Ureteral stent placement. SOCIAL HISTORY: He does not have a strong history of smoking. Apparently he smoked a little bit in his 30s. No alcohol. No drugs. He is and his is at the bedside. FAMILY HISTORY: Noncontributory. ALLERGIES: No known allergies. PHYSICAL EXAMINATION: Vital Signs: Temperature 98.2 degrees, pulse 82, respiratory rate 25, blood pressure 152/85, oxygen saturation 100% on room air. HEENT: Head normocephalic, no trauma. PERRLA. Neck: Supple. No JVD. No masses. Central trachea. Chest: Clear to auscultation. Some crepitus at the bases. Abdomen: Soft. He does have a midline scar that looks fine. I do not see any signs of active bleeding or infection. He has a little ostomy bag also. Extremities: No edema, no clubbing, no cyanosis. Neurological: The patient is alert. He is oriented x2. No focal neurological deficits but generalized weakness. He is following commands and able to recognize family members at the bedside. LABORATORY DATA: WBC 16.5, hemoglobin 7.1, hematocrit 24.1, platelet 141,000. Sodium 143, potassium 5.1, chloride 106, bicarbonate 19, BUN 41, creatinine 2.7, glucose 214, calcium 8.5. ASSESSMENT AND PLAN: 1. 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 Exploratory laparotomy assisted by Dr. Veloz where they found significant adhesions at this time. No obvious injury to his intestine. I will wait for more information about the surgery. 2. Metabolic encephalopathy likely due to anesthesia and/or pain medication. These medications have been on hold. He seems to be recovering. As per the at the bedside, he is much better. We will continue to monitor this patient closely. He has been placed in the ICU because of this. 3. Possible acute on chronic kidney disease. We will continue with IV fluids. I will hold the ARBs at this moment. We will avoid nephrotoxic medications. This has been explained to the patient and the at the bedside. 4. Hypertension. Continue home medications except ARBs. Also I will put him on as-needed medications with hydralazine 10 mg. 5. History of coronary artery disease. I checked an echocardiogram done 2 months ago and it showed an ejection fraction of 67% with also right ventricular size and systolic function which is normal. He has no complaint of chest pain at this moment. 6. History of gastric cancer with resection followed by radiation and chemotherapy in 2007, aware. 7. Generalized weakness. At some point, we will start this patient on physical therapy and occupational therapy once he is more stable. 8. Gastrointestinal prophylaxis. Continue with famotidine twice a day. 9. Leukocytosis. I do not think we have a source of infection, but I agree with antibiotics at this moment. He has been placed on Zosyn but I will readjust the dose based on his kidney function. Further recommendations pending hospital course. cc: Arsenio Kan MD
[2019-06-19] MEDS: ZOSYN 2.25 GM in NS 50 ML IV SCH ×2 (14:39→21:14)
[2019-06-19] MEDS: ULTRAM PO PRN (16:43)
[2019-06-19 19:21] LABS: HEMATOCRIT 22.2 % (42.0-52.0); HEMOGLOBIN 6.5 g/dL (14.0-18.0)
[2019-06-19] MEDS ORDERED: NS 500 ML IV ONE (20:25)
[2019-06-19] MEDS ORDERED: BENADRYL PO ONE (20:26)
[2019-06-19] MEDS ORDERED: TYLENOL PO ONE (20:29)
[2019-06-19] MEDS: MIRALAX PO SCH (21:47)
[2019-06-20] MEDS: ULTRAM PO PRN ×3 (05:38→20:29)
[2019-06-20] MEDS: PHENERGAN IV PRN (05:38)
[2019-06-20] MEDS: ZOSYN 2.25 GM in NS 50 ML IV SCH ×4 (05:47→20:29)
[2019-06-20 07:38] LABS: HEMOGLOBIN 8.2 g/dL (14.0-18.0); MCHC 30.4 g/dL (33-37); MCV 85.7 FL (81-99); MPV 9.7 FL (7.4-10.4); RBC 3.15 XMIL (4.7-6.1); RDW 14.9 % (11.5-14.5); WBC 15.56 X1000 (4.8-10.8)
[2019-06-20 08:10] LABS: CALCIUM 8.2 mg/dL (8.8-10.2); CREATININE 1.8 mg/dL (0.7-1.2); POTASSIUM 3.9 mmol/L (3.5-5.1)
[2019-06-20] MEDS: VICON-C PO SCH (09:03)
[2019-06-20] MEDS: REMERON PO SCH (09:03)
[2019-06-20] MEDS: NORVASC PO SCH ×2 (09:03→20:29)
[2019-06-20] MEDS: PEPCID PO SCH ×2 (09:03→20:28)
[2019-06-20] MEDS: BYSTOLIC PO SCH (09:03)
[2019-06-20] MEDS: COLACE PO SCH ×2 (09:03→20:28)
[2019-06-20] MEDS: ELMIRON PO SCH ×3 (09:04→20:29)
[2019-06-20] MEDS: ZINC SULFATE PO SCH ×2 (09:04→20:28)
[2019-06-20] MEDS: LOZOL PO SCH (09:04)
[2019-06-20] MEDS: CALTRATE 600 + D PO SCH (09:04)
[2019-06-20] MEDS: MIRALAX PO SCH ×2 (09:04→20:28)
[2019-06-20] MEDS: THERA M PLUS PO SCH (09:04)
--- NOTE | 2019-06-20 10:43 | PROGRESS NOTE ---
DATE: 06/20/2019 SUBJECTIVE: Postoperative day 2 from cystoscopy with exploratory laparotomy and repair of prostatic urethra with left ureteral stent placement. The patient was transferred to the floor yesterday from the ICU. Overall seems to be done relatively well. He was slightly agitated this morning and was found to have an oxygen saturation 78% this morning per nursing. This was not recorded. The patient's oxygen saturations have report to normal. He has not been tachycardic and he has had regular blood pressures. His oxygen saturation is 100% this morning on room air. He denies any abdominal pain. His catheter is draining well with 1450 cc recorded yesterday. The patient continues to have some confusion which is evident on exam today, as well as discussed by his . The patient has been confused after most of his recent surgeries. PHYSICAL EXAMINATION: Vital Signs: Temperature 98.5 degrees, heart rate 91, blood pressure is 173/59, oxygen saturation 100% on room air. General: No acute distress. Resting comfortably in bed. Alert to person, not oriented to place, time or situation. Respiratory: Good respiratory effort without audible wheezing or rales. Regular chest sounds bilaterally. Cardiovascular: Regular rate and rhythm. No evidence of lower extremity edema. Abdomen: Soft, nontender, nondistended. No palpable masses. Incision is well healed with pam present. No drainage from the site. Suprapubic tube in place draining clear yellow urine. : The patient has normal testicles bilaterally. Evidence of firm penis with evidence of cancer present all the way to the corpora in the glans. Musculoskeletal: Moving all extremities. LABS: White blood cell count 15.6, hemoglobin 8.2, hematocrit 27.0, platelets 175,000. Sodium 143, potassium 3.9, chloride 107, bicarb 19, BUN 32, creatinine 1.8, glucose 130, calcium 8.2. ASSESSMENT AND PLAN: Mr. Patel is an 83-year-old with history of prostate cancer status post radiation, with history of gastric cancer status post resection, hypertension and recently diagnosed urothelial carcinoma of the penis and bladder. The patient recently underwent cystoscopy and attempted exchange of bilateral ureteral stents. The patient was found to have a urethra injury in the prostate urethra and required exploratory laparotomy and repair by Dr. Garibay on . The patient was in the ICU postoperatively and had some confusion, but has been transferred out. The patient continues to have confusion today. Patient had a hemoglobin ordered overnight, which returned at 6.5 and 22. The patient was transfused 1 unit of blood and his numbers have improved this morning to a 8.2 in 27. He clinically appears to be doing better. He continues to have some confusion, but vital signs are all within normal limits. Nursing discussed that he had an episode of hypoxemia. However, this rapidly resolved without any therapy. He has had no tachycardia and blood pressure have all been normal. Uncertain what drove this. The patient has been tolerating a diet and his urethral catheter is draining clear yellow urine through suprapubic site. Overall, I think patient is stable at this time. The patient has had multiple episodes of confusion after surgery in the past. We will continue to monitor. This appears to be delirium. The patient has been followed by the hospitalist. We will continue holding pain medications. Continue on antibiotics for possible leukocytosis of urinary origin. Renal function is improved to 1.8 and is making good urinary output. cc: MD Arsenio Dennis MD MTDD
[2019-06-20] MEDS: NS 1,000 ML IV SCH (11:18)
--- NOTE | 2019-06-20 13:45 | PROGRESS NOTE ---
DATE: 06/20/2019 SUBJECTIVE: This patient is resting comfortably in bed. He is not complaining of pain, but he seems to be confused. He is able to say his name. He is able to say his 's name as well and date of . He is not oriented to time and he has been having problem with place. He is following commands. LABORATORY: WBC 15.5, hemoglobin 8.2, hematocrit 27, platelets 175,000. Sodium 143, potassium 3.9, chloride 107, bicarbonate 19, BUN 32, creatinine 1.8, glucose 130, calcium 8.2.HEENT: Head normocephalic, no trauma. PERRLA. Neck: Is supple. No JVD. No masses. Central trachea. Chest: Clear to auscultation. No wheezing. No rales. Abdomen: Soft. He does have a midline scar that looks fine. I do not see any signs of active bleeding or infection. He also has a ostomy bag in that place. Extremities: No edema, no clubbing, no cyanosis. Neurological: The patient is alert. He is oriented x1. He is able to recognize his at the bedside, also her name and also date of . He is following commands/ no focal weakness. VITAL SIGNS: Temperature 98.5 degrees, pulse 91, respiratory rate 20, blood pressure 173/59, oxygen saturation 100% on room air. ASSESSMENT AND PLAN: 1. 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 Postoperative day number 2 exploratory laparotomy assisted by Dr. Veloz was performed. No obvious injuries to the intestine. We will continue with the same management. 2. Metabolic encephalopathy likely due to anesthesia, pain medication and I do believe he received also yesterday during transfusion a dose of Benadryl. As per the this problem has been happening on and off during all the hospitalization. We have we have stopped all the narcotics and we will monitor. 3. Possible acute on chronic kidney disease. I will continue with the same management for now. It looks like the kidney function is around baseline. 4. Hypertension. Continue with home medications except ARBs. I have increased the dose of the amlodipine. 5. History of coronary artery disease. Echocardiogram done 2 months ago showed an ejection fraction of 67% and also the right ventricular size and systolic function was normal. No complaint of chest pain at this moment. 6. History of gastric cancer with resection followed by radiation and chemotherapy in 2007, aware. 7. History of prostate cancer, aware. 8. Generalized weakness. I will ask for some physical therapy to evaluate this patient at least to start range of motion in bed or sit the patient up. 9. Leukocytosis. I do not have any source of infection, but I agree with antibiotics at this moment. He has been placed on Zosyn renally dosed. 10. Anemia status post 1 PRBC, hemoglobin improved from 6.5 to 8.2. We will monitor. cc: Arsenio Kan MD
[2019-06-21] MEDS: ULTRAM PO PRN (00:36)
[2019-06-21] MEDS ORDERED: ATIVAN IV ONE (03:20)
[2019-06-21] MEDS: ZOSYN 2.25 GM in NS 50 ML IV SCH ×5 (04:17→21:57)
[2019-06-21] MEDS ORDERED: FLU VACCINE IM ONE (06:37)
[2019-06-21 06:58] LABS: BASO# 0.01 X1000 (0.0-0.2); BASO% 0.1 % (0.0-0.8); EOS# 0.16 X1000 (0.0-0.7); HEMATOCRIT 28.2 % (42.0-52.0); HEMOGLOBIN 8.6 g/dL (14.0-18.0); IMM GRAN# 0.25 X1000 (0.0-0.04); IMM GRAN% 1.6 % (0.0-0.5); LYMPH# 1.93 X1000 (1.2-3.4); LYMPH% 12.4 % (20.5-51.1); MCH 26.3 PG (27-31); MCHC 30.5 g/dL (33-37); MCV 86.2 FL (81-99); MONO# 1.21 X1000 (0.11-0.59); MONO% 7.8 % (1.7-9.3); MPV 10.2 FL (7.4-10.4); NEUT# 12.05 X1000 (1.4-6.5); NEUT% 77.1 % (42.2-75.2); PLT 247 X1000 (130-400); RBC 3.27 XMIL (4.7-6.1); RDW 14.9 % (11.5-14.5); WBC 15.61 X1000 (4.8-10.8)
[2019-06-21 07:18] LABS: CALCIUM 8.4 mg/dL (8.8-10.2); CREATININE 1.9 mg/dL (0.7-1.2); POTASSIUM 3.8 mmol/L (3.5-5.1)
[2019-06-21] MEDS: MIRALAX PO SCH (08:07)
[2019-06-21] MEDS: PHENERGAN IV PRN ×2 (08:08→23:52)
[2019-06-21] MEDS: BYSTOLIC PO SCH (08:09)
[2019-06-21] MEDS: LOZOL PO SCH (08:09)
[2019-06-21] MEDS: CALTRATE 600 + D PO SCH (08:09)
[2019-06-21] MEDS: VICON-C PO SCH (08:09)
[2019-06-21] MEDS: THERA M PLUS PO SCH (08:09)
[2019-06-21] MEDS: COLACE PO SCH (08:09)
[2019-06-21] MEDS: ELMIRON PO SCH ×3 (08:09→21:57)
[2019-06-21] MEDS: REMERON PO SCH (08:09)
[2019-06-21] MEDS: ZINC SULFATE PO SCH ×2 (08:10→21:57)
[2019-06-21] MEDS: PEPCID PO SCH ×2 (08:10→21:57)
[2019-06-21] MEDS: NORVASC PO SCH ×2 (09:00→21:57)
[2019-06-21] MEDS ORDERED: DULCOLAX PR ONE (11:07)
[2019-06-21] MEDS: NS 1,000 ML IV SCH ×3 (12:23→15:57)
--- NOTE | 2019-06-21 14:32 | PROGRESS NOTE ---
DATE: 06/21/2019 SUBJECTIVE: The patient is resting comfortably in bed. He is confused. He is able to say his name and date of . He is able to recognize family members at the bedside. He is oriented to place and time. He seems to be following commands on and off. He had an episode of agitation during the night and he got better after getting Ativan, low dose. He has been placed back on his home medications. His kidney function seems to be better compared with before. We will continue to monitor. I will possibly ask for a CT of the head and/or a neurology evaluation if he is still confused in the morning. OBJECTIVE: Vital Signs: Temperature 98.3 degrees, pulse 90, respiratory rate 20, blood pressure 164/66, oxygen saturation 100% on room air. HEENT: Head normocephalic. No trauma. PERRLA. Neck: Supple. No JVD. No masses. Central trachea. Chest: Clear to auscultation. No wheezing. No rales. Abdomen: Soft. He does have a midline scar that looks fine. I do not see any signs of bleeding or infection. He has an ostomy bag in place but the bowel sounds are decreased. Extremities: No edema, no clubbing, no cyanosis. Neurological Examination: The patient is alert. He is oriented x1. He is able to recognize and say the name of the daughter but he is confused. He is able to say his date of and name. He does not have any focal weakness but generalized weakness. Laboratory: WBC 15.6, hemoglobin 8.6, hematocrit 28.2, platelets 247,000. Sodium 144, potassium 3.8, chloride 108, bicarbonate 21, BUN 24, creatinine 1.9, glucose 113, calcium 8.4, ammonia 15. ASSESSMENT AND PLAN: 1. 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 Veloz, with no injuries to the intestine. We will continue with the same management. 2. Metabolic encephalopathy, likely due to age, anesthesia, pain medication. Apparently, he has been having multiple hospitalizations and he also has been confused multiple times, even at home. I have stopped all the narcotics and we will monitor. I will probably get a CT scan and neurology evaluation in the morning if he does not get better. 3. Likely acute on chronic kidney disease, back to his baseline. 4. Hypertension. Continue with home medications except ARBs. Dose of amlodipine has been increased. 5. History of coronary artery disease. Echocardiogram done 2 months ago showed an ejection fraction of 67%, and also right ventricular size and systolic function which was normal. No complaints of chest pain at this moment. 6. History of gastric cancer with resection, followed by radiation and chemotherapy in 2018. Aware. 7. History of prostate cancer. Aware. 8. Generalized weakness. I asked already for physical therapy. 9. Leukocytosis. I do not have any source of infection but I agree with the antibiotics. I have requested a urine culture and blood culture as well. 10. Anemia, status post 1 unit of packed red blood cells. Hemoglobin has been stable afterwards. cc: Arsenio aKn MD
[2019-06-21] MEDS: ATIVAN IV PRN (21:58)
[2019-06-22] MEDS: ATIVAN IV PRN (04:29)
[2019-06-22] MEDS: NS 1,000 ML IV SCH (04:32)
[2019-06-22] MEDS: MIRALAX PO SCH ×3 (05:48→22:41)
[2019-06-22] MEDS: COLACE PO SCH ×3 (05:48→22:41)
[2019-06-22] MEDS: ZOSYN 2.25 GM in NS 50 ML IV SCH ×3 (06:10→17:37)
[2019-06-22 07:49] LABS: CALCIUM 8.5 mg/dL (8.8-10.2); CREATININE 1.7 mg/dL (0.7-1.2); MAGNESIUM 1.5 mg/dL (1.5-2.7); PHOSPHORUS 2.7 mg/dL (2.7-4.5); POTASSIUM 3.8 mmol/L (3.5-5.1)
[2019-06-22 07:52] LABS: BASO# 0.03 X1000 (0.0-0.2); BASO% 0.2 % (0.0-0.8); EOS# 0.18 X1000 (0.0-0.7); EOS% 1.2 % (0.0-10.0); HEMATOCRIT 29.5 % (42.0-52.0); HEMOGLOBIN 9.2 g/dL (14.0-18.0); IMM GRAN# 0.32 X1000 (0.0-0.04); IMM GRAN% 2.1 % (0.0-0.5); LYMPH# 1.57 X1000 (1.2-3.4); LYMPH% 10.2 % (20.5-51.1); MCH 26.9 PG (27-31); MCHC 31.2 g/dL (33-37); MCV 86.3 FL (81-99); MONO% 7.8 % (1.7-9.3); MPV 9.3 FL (7.4-10.4); NEUT# 12.11 X1000 (1.4-6.5); NEUT% 78.5 % (42.2-75.2); PLT 149 X1000 (130-400); RBC 3.42 XMIL (4.7-6.1); RDW 14.9 % (11.5-14.5); WBC 15.41 X1000 (4.8-10.8)
[2019-06-22 08:05] LABS: BANDS 2 % (0-1); EOS 2 % (1-10); LYMPHS 10 % (21-51); MONO 8 % (1-9); SEGS 78 % (42-75)
[2019-06-22 08:06] LABS: LARGE PLATELETS 1+
[2019-06-22] MEDS: BYSTOLIC PO SCH (08:45)
[2019-06-22] MEDS: TYLENOL PO PRN ×3 (08:45→22:45)
[2019-06-22] MEDS: ZINC SULFATE PO SCH ×2 (08:45→22:41)
[2019-06-22] MEDS: ELMIRON PO SCH ×3 (08:45→22:40)
[2019-06-22] MEDS: REMERON PO SCH (08:45)
[2019-06-22] MEDS: VICON-C PO SCH (08:45)
[2019-06-22] MEDS: NORVASC PO SCH ×2 (08:45→22:41)
[2019-06-22] MEDS: LOZOL PO SCH (08:45)
[2019-06-22] MEDS: CALTRATE 600 + D PO SCH (08:45)
[2019-06-22] MEDS: THERA M PLUS PO SCH (08:45)
[2019-06-22] MEDS: PEPCID PO SCH ×2 (08:45→22:42)
--- NOTE | 2019-06-22 14:19 | PROGRESS NOTE ---
DATE: 06/22/2019 SUBJECTIVE: Patient is resting comfortably in bed, as per the family he is still confused. At this moment he is sleeping and apparently he spent most of the night awake, he was able to say his name and date of on and off during the night as per the night nurse, I have requested evaluation by Neurology Department, probably he will need some brain images but I will wait for recommendations. OBJECTIVE: Vital Signs: Temperature 97.6 degrees, pulse 50, respiratory rate 20, blood pressure 164/65, oxygen saturation 92 on room air. HEENT: Head normocephalic, no trauma. PERRLA. Neck: Supple. No JVD. No masses. Central trachea. Chest: Clear to auscultation. No wheezing, no rales. Abdomen: Soft. He does have a midline scar that looks fine. I do not see any signs of bleeding or infection. Extremities: No edema, no clubbing, no cyanosis. Neurologic: This patient is sleepy. He grimaces with pain stimulation. Apparently he spent most of the night awake and now he is sleeping. He moves all 4 extremities spontaneously. I do not see any focal weakness, I do not see any continuous tremor. LABORATORY: WBC 15.4, hemoglobin 9.2, hematocrit 29.5, platelet 149,000. Sodium 142, potassium 3.8, chloride 104, bicarbonate 19, BUN 19, creatinine 1.7, glucose 106, calcium 8.5, magnesium 1.5, phosphorus 2.7. ASSESSMENT AND PLAN: 1. Metastatic urothelial carcinoma with metastasis to the corpora cavernosus and corpus spongiosum with indwelling double-J stent postoperative day #4, with also postoperative exploratory laparotomy assisted by Dr. Veloz with no injuries to the intestine, we will continue with the same management. 2. Metabolic encephalopathy. I believe this is multifactorial, apparently he has been having multiple hospitalizations and surgical interventions with postoperative confusion but these do not last too long, we have stopped all the narcotics, I have requested an evaluation by Neurology Department, probably we will need to get a CT scan or MRI but I will wait for recommendations. 3. Likely acute on chronic kidney disease, resolved. 4. Hypertension. Continue home medications except ARBS, the dose of amlodipine has been increased. 5. History of coronary artery disease. Echocardiogram done 2 months ago showed an ejection fraction of 67% and also right ventricular size and systolic function which was normal. No complaints of chest pain at this moment. 6. History of gastric cancer with resection followed by radiation and chemotherapy in 2018, aware. 7. History of prostate cancer aware. 8. Generalized weakness. Continue physical therapy for range of motion. 9. Leukocytosis. I do not have any source of infection at this moment but I agree with the antibiotics. I have requested a urine culture and blood culture that so far has been negative. 10. Anemia status post 1 packed red blood cell. Hemoglobin has been stable afterwards. cc: Arsenio Kan MD
--- NOTE | 2019-06-22 14:58 | Diag Imaging Result Doc PS360 ---
CT HEAD W/O CONTRAST - 06/22/2019 INDICATION: right arm weakness, poor responsiveness COMPARISON: 04/27/2019 FINDINGS: Stable diffuse cerebral atrophy. Stable advanced cerebral white matter chronic microvascular ischemia. No intracranial mass or hemorrhage. The skull is intact. The sinuses are clear. IMPRESSION: No acute disease or change from prior. This exam was performed using automated exposure control, adjustment of mA or kV according to patient size, and/or use of iterative reconstruction technique Electronically signed by Wil Hinds 06/22/2019 2:56 PM
--- NOTE | 2019-06-22 15:43 | CONSULTATION ---
DATE OF CONSULTATION: 06/22/2019 HISTORY OF PRESENT ILLNESS: Mr. Patel is 83 years old and he has been poorly responsive in recent days. There is report of confusion. I have reviewed the hospital records for this admission. Family at the bedside reports he has not had significant baseline forgetfulness. He does repeat himself in conversation and he seems to forget details on casual conversation, but none of that has been prominent. He has had an unsteady gait with tendency to fall. Family is not aware of any recent fall with head injury. He has never had diagnosed clinical stroke, seizure, other neurologic event. He has bladder cancer and was admitted for surgical procedure related to that. Family reports he was awake and alert and talking sensibly soon after surgery, but seemed to be less alert, less attentive and more confused in the last few days. Last brain imaging report that I see was 04/27/2019, noncontrast CT which showed mild generalized atrophy and chronic changes but nothing focal or acute, no bleeding or mass, no discrete infarction. He has had lab showing WBC 12593, anemia, several relatively minor metabolic findings, but nothing on the metabolic profile that generally would be responsible for encephalopathy. He has had 1 dose of diphenhydramine, 2 doses of lorazepam. He has not had morphine in 4 days. Family reports 3 or 4 episodes of apparent unresponsiveness which resolved spontaneously in 15 or 20 minutes each time. These all occurred within the last year. He had emergency room evaluation at least a few times. Family reports no definite diagnosis for these episodes. His falls have generally not been witnessed but heard. He often needs help getting up after falling. There has never been a definite focal neurologic feature with his falling or with his periods of poor responsiveness. On exam, Mr. Patel is initially asleep, easily waked, alert, attentive. He answered questions appropriately. Speech is a little bit dysarthric but easily understood. He did well with bedside testing of language function. I did not test his cognitive function thoroughly. He missed the correct day of the week. He did name the hospital correctly. Head and neck are unremarkable. Visual steele are full tested by confrontational finger counting. Extraocular movements are full. Facial motility is little bit diminished bilaterally, but there is no significant asymmetry. The left nasolabial fold is a little bit less prominent than the right observed partially reclined. Gag is intact. Tongue is midline. Hearing is fair. He has good power in the left arm and in both legs. I can overcome the right arm at the deltoid grading 4/5. Distal right arm power is good. He did rapid alternating movements a little better with the left hand than the right. Proximal arm weakness limits him, but I did not see a definite cerebellar deficit in the right arm. I did not test his gait. Plantar response is silent bilaterally. He reports symmetric pinprick appreciation over the right and left limbs. Reflexes are absent at the ankles bilaterally. IMPRESSION: 1. Poor responsiveness, which seems to be much improved this afternoon. Explanation is not clear. Toxic/metabolic encephalopathy seems most likely 2. Only clinical finding is proximal right arm weakness, which may be mechanical and not a primary neurologic deficit. I will order CT to make sure there is not new left hemisphere infarction to account for the right arm weakness. 3. He likely has a mild cognitive impairment syndrome at baseline, which would predispose him to periods of increased encephalopathy with any toxic or metabolic disturbance. 4. Family reports several episodes of apparent unresponsiveness, always resolving in 15 to 20 minutes. Seizure would be a consideration, but that is certainly not a definite diagnosis. 5. Chronic unsteady gait, tendency to fall, several falls which have not been witnessed. Family does not think altered consciousness has caused him to fall. I will order noncontrast CT of the head. Further plans will depend on that report. His creatinine has come down in the last few days, but I would still prefer not to give MRI or CT contrast at this time. We might reconsider contrasted scan later. The next step, depending on CT report and on his clinical course, would be to consider EEG. Longer term, he might be a candidate for trial with cholinesterase inhibitor for cognitive impairment. Thanks for asking Neurology to see Mr. Patel. cc: MD Arsenio Clement III, MD MTDD
[2019-06-22] MEDS: ZYVOX 600 MG/D5W 600 MG/300 ML IVPB IV SCH (18:09)
--- NOTE | 2019-06-22 18:20 | HEMO/ONC CONSULTATION ---
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 The patient also has stage IV chronic kidney disease. The patient was followed by Dr. Garibay this summer for right hydronephrosis. Patient had a right percutaneous nephrostomy tube placed that was eventually internalized. The patient was due to have a double-J stent replacement last week; however, they found his penile urethra was too small to place the cystoscope into the bladder. The flexible cystoscope was used to place a wire and then a 20-Bengali silicone catheter was forced through the urethra into the bladder. He had an indwelling catheter for 1 week with a significant amount of bleeding. The plan was to keep it for another week and then schedule a cystoscopy stent exchange. Patient went into the hospital last , June 18, to have this procedure done. During the procedure, there was concern about bladder wall tear, and Dr. Garibay involved Dr. Veloz and emergently took him to the OR. The patient currently has a suprapubic catheter at this time. Post surgery, the patient has been significantly confused. He has been fighting, pulling out lines, confused to time and place. He does, however, know his name as well as his 's name. The patient is continually fidgeting and having rigors according to the family. 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 PAST SURGICAL HISTORY: Multiple cystoscopies, partial gastrectomy, XRT for prostate cancer. SOCIAL HISTORY: Patient denies alcohol, drugs, or smoking. ALLERGIES: No known drug allergies. HOME MEDICATIONS: Amlodipine, aspirin, Benicar, Elmiron, Flomax, Premarin, Toprol-XL. REVIEW OF SYSTEMS: Pertinent positives noted in the HPI. PHYSICAL EXAMINATION: Vital Signs: Temperature 98.1 degrees, pulse rate 62, respiratory rate 18, blood pressure 170/60, O2 saturation 92% on room air. He is in 0/10 pain. General: He appears comfortable. HEENT: Sclerae are anicteric. PERRLA. Oral mucosa is normal. Abdomen: Soft, nontender. Extremities: No edema noted. Neurological: The patient does not respond to me. He does open his eyes. He does hold my hand moving all 4 extremities. Noted left arm essential tremor. Cardiovascular: Normal S1, S2. Heart rate and rhythm regular. Respiratory: Chest is clear to auscultation. Normal respiratory effort. LABORATORY DATA: WBCs 15.41, hemoglobin 9.2, hematocrit 29.5, platelet count 149,000. RADIOLOGIC DATA: Head CT: Stable diffuse cerebral atrophy. No acute disease. ASSESSMENT AND PLAN: 1. 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 Continue treatment per medical management and Dr. Garibay. 2. Metabolic encephalopathy. Continue recommendations per medical management and Neurology. 3. Deep venous thrombosis prophylaxis. Consider deep venous thrombosis prophylaxis. The patient should have on SCDs, get him up out of bed when he is able. Dictated by SHALONDA Alvarado for Benson Espinoza MD Patient seen and examined. As above. Family believes he is having what appears to be rigors. Discussed with Dr. Wong. Broaden coverage with Zyvox/Zosyn. Neurology also has been consulted. Benson Espinoza MD cc: MD Arsenio Soto MD [facility]
--- NOTE | 2019-06-22 20:34 | INFECTIOUS DISEASE CONSULT REP ---
DATE: 06/22/2019 CONCLUSION: Patient had a urologic procedure done. Postoperatively, he has had leukocytosis. He also has times when he is jerking and gets stiff or lethargic, but he does not have fever. He does have leukocytosis. The etiology of these symptoms is uncertain to me, but I think infection is a possibility. RECOMMENDATIONS: I had talked to Dr. Espinoza earlier. I told him I agreed that the patient getting Zosyn and I suggested that the patient should be put on Zyvox to provide good coverage for gram- positive cocci including methicillin-resistant Staph aureus. Also, I have ordered a CT scan of the chest, abdomen and pelvis. I put for there to be no IV contrast but there can be p.o. contrast given. DISCUSSION: The patient had the surgery as mentioned above. Postoperatively, he is having leukocytosis but no fever. He has episodes where he is jerking or stiff or very lethargic. Studies done thus far show a CBC with a white count of 15,410, hemoglobin 9.2, platelet count 149,000. Creatinine is 1.7. GFR is 39. Blood cultures are pending. Urine cultures negative. CT scan of the head shows no acute disease. PAST MEDICAL HISTORY/REVIEW OF SYSTEMS: He has decreased hearing, but his vision is good. Cardiac: He does not have chest pain or palpitations. Gastrointestinal: No nausea, vomiting, or diarrhea. Genitourinary: See present illness. Bones, joints, muscles: No joint swelling or muscle aching. Integument: No rashes. PREVIOUS HOSPITALIZATIONS AND OPERATIONS: He has had stents placed in his ureters. He has had partial gastrectomy. He has had bladder cancer for which he had a biopsy of the bladder taken. He has had prostate cancer, which was treated with radiation and chemotherapy. MEDICAL DISEASES: Positive for gastric cancer, bladder cancer, prostate cancer, and hypertension. INFECTIOUS DISEASE HISTORY: Negative for pneumonia and UTI. FAMILY HISTORY: Positive for diabetes mellitus and cancer. SOCIAL HISTORY: [place] have outside dog, goats, chickens and cows. He stopped smoking cigarettes and drinking alcoholic beverages years ago. He never did do illicit drugs. ALLERGIES: His chart lists no known drug allergies. MEDICATIONS: Taken at home include Norvasc, Reglan, mirtazapine, Bystolic, pentosan, tramadol, and olmesartan. PHYSICAL EXAMINATION: Vital Signs: Temperature is 98.1 degrees, pulse 62, respirations 18, blood pressure 170/60. General: This is a somewhat ill-appearing elderly male. He is in no acute distress. Head, eyes, ears, nose, and throat: He can hear my spoken words and see near objects. He does not have any white patches on his tongue. Neck: No meningismus. Lungs: Clear to auscultation. Cardiovascular: Regular heart rate. Abdomen: Soft and nontender. The patient has a tube coming out of the lower part of the abdomen. It is draining urine. Neurologic: The patient is arousable. He can move his extremities. There is no tremor. His memory was slightly decreased currently. Integument: No rash noted. cc: MD Arsenio Dockery MD
[2019-06-23] MEDS: ZOSYN 2.25 GM in NS 50 ML IV SCH ×4 (00:23→18:21)
[2019-06-23] MEDS: ZYVOX 600 MG/D5W 600 MG/300 ML IVPB IV SCH ×2 (06:05→16:06)
[2019-06-23 06:35] LABS: BASO# 0.02 X1000 (0.0-0.2); BASO% 0.2 % (0.0-0.8); EOS# 0.37 X1000 (0.0-0.7); EOS% 2.8 % (0.0-10.0); HEMATOCRIT 28.6 % (42.0-52.0); HEMOGLOBIN 8.6 g/dL (14.0-18.0); IMM GRAN# 0.24 X1000 (0.0-0.04); IMM GRAN% 1.8 % (0.0-0.5); LYMPH# 1.64 X1000 (1.2-3.4); LYMPH% 12.6 % (20.5-51.1); MCH 25.5 PG (27-31); MCHC 30.1 g/dL (33-37); MCV 84.9 FL (81-99); MONO# 1.08 X1000 (0.11-0.59); MONO% 8.3 % (1.7-9.3); MPV 10.7 FL (7.4-10.4); NEUT# 9.71 X1000 (1.4-6.5); NEUT% 74.3 % (42.2-75.2); PLT 186 X1000 (130-400); RBC 3.37 XMIL (4.7-6.1); RDW 14.8 % (11.5-14.5); WBC 13.06 X1000 (4.8-10.8)
[2019-06-23] MEDS: NS 1,000 ML IV SCH ×2 (06:37→14:21)
[2019-06-23 07:17] LABS: CALCIUM 7.9 mg/dL (8.8-10.2); CREATININE 1.5 mg/dL (0.7-1.2); MAGNESIUM 1.5 mg/dL (1.5-2.7); PHOSPHORUS 2.7 mg/dL (2.7-4.5); POTASSIUM 2.7 mmol/L (3.5-5.1)
--- NOTE | 2019-06-23 07:34 | Diag Imaging Result Doc PS360 ---
EXAM: CT THORAX/ABD/PELVIS W/O CON INDICATION: postop leukocytosis TECHNIQUE: This exam was performed using automated exposure control, adjustment of mA or kV according to patient size, and/or use of iterative reconstruction technique. COMPARISON: CT abdomen and pelvis dated 05/19/2019. No prior dedicated CT chest is available for comparison. FINDINGS: CHEST: There is excessive motion artifact. There are small bilateral pleural effusions. There is adjacent lower lobe subsegmental atelectasis. There are a few calcified granulomata bilaterally. There is no pericardial effusion. There is extensive aortic atherosclerotic calcification and coronary artery calcification. No definite mediastinal lymphadenopathy is appreciated. There are degenerative changes throughout the thoracic spine. There is no evidence of acute osseous abnormality. ABDOMEN/PELVIS: There is excessive motion artifact. The liver, gallbladder, and spleen are grossly unremarkable as imaged with unenhanced CT. I suspect that there has been a partial pancreatectomy. The visualized pancreatic head is grossly unremarkable as imaged. The adrenal glands are unremarkable. There is a malpositioned left ureteral stent. The proximal portion of the scan is doubled back and the tip is in the mid to distal ureter. The distal tip is in the urinary bladder. However, there has been improvement of the hydronephrosis on the left. The right ureteral stent seen on the previous study has been removed. Fairly severe right hydroureteronephrosis is approximately stable. The urinary bladder is largely nondistended. The bladder exhibits wall thickening, which may be in part due to underdistention. A component of cystitis is also possible. Please correlate clinically. There are gas droplets within the urinary bladder lumen that are probably from recent catheterization. There are midline skin pam indicating recent laparotomy. There is ill-defined fluid and mesenteric edema low in the pelvis of uncertain etiology but may be postsurgical. There is uncomplicated diverticulosis coli. There is no evidence of bowel obstruction. There are stable postsurgical changes associated with the stomach. There are lumbar spine and hip degenerative changes. There is no evidence of acute osseous abnormality. IMPRESSION: 1.Somewhat limited study due to motion artifact and lack of contrast. 2.Bilateral small pleural effusions and adjacent lower lobe atelectasis. 3.Malpositioned left ureteral stent with the proximal tip doubled back in the left ureter. However, hydronephrosis on the left has actually improved. 4.Interval removal of the right ureteral stent with stable fairly severe right hydroureteronephrosis. 5.Thickened urinary bladder wall in part due to underdistention. Consider a component of cystitis as well. 6.Ill-defined fluid and edema in the pelvis that is indeterminate, possibly postsurgical. 7.Other incidental/nonacute findings detailed above. Electronically signed by Mandeep Stanley 06/23/2019 7:32 AM
[2019-06-23] MEDS: TYLENOL PO PRN ×3 (09:25→22:25)
--- NOTE | 2019-06-23 10:09 | PROGRESS NOTE ---
DATE: 06/23/2019 LOCATION: Room 416. SUBJECTIVE: at the bedside believes Mr. Patel is just about back to baseline. He has not had any further periods of poor responsiveness. OBJECTIVE: This morning, Mr. Patel is awake, alert, attentive, bright, cheerful. He followed simple commands. He cannot raise his right arm at the shoulder. He has good power in the right triceps, wrist extensors, and research associate molecular biology. He did rapid alternating movements well with the hands. WBC count is 13,000. There are a few minor findings on chemistry profile. Calcium is down to 7.9. There is not anything in the lab work to explain encephalopathy. CT of the head yesterday showed typical age-related changes, but nothing focal or acute, and specifically no evidence of left hemisphere infarction to account for the right arm weakness. I think the right arm weakness is mostly related to shoulder joint problem, and not a neurologic deficit. There is no evidence of stroke or other acute brain event. He seems to be recovered now near baseline. I do not have a definite explanation for his transient encephalopathy, but suspect this was primarily toxic/metabolic, and appears to be nearly resolved. I do not have any specific suggestion from Neurology standpoint right now. Electively, we might consider cholinesterase inhibitor trial with his baseline mild cognitive impairment syndrome. Also, if he has further episodes of unresponsiveness, as family has reported in prior months, we might consider elective EEG. Thank you for asking Neurology to see Mr. Patel. cc: MD JILLIAN Clement III
[2019-06-23] MEDS: ZINC SULFATE PO SCH ×2 (11:12→22:24)
[2019-06-23] MEDS: CALTRATE 600 + D PO SCH (11:12)
[2019-06-23] MEDS: PEPCID PO SCH ×2 (11:13→22:25)
[2019-06-23] MEDS: NORVASC PO SCH ×2 (11:13→22:25)
[2019-06-23] MEDS: REMERON PO SCH (11:13)
[2019-06-23] MEDS: VICON-C PO SCH (11:13)
[2019-06-23] MEDS: BYSTOLIC PO SCH (11:14)
[2019-06-23] MEDS: LOZOL PO SCH (11:14)
[2019-06-23] MEDS: MIRALAX PO SCH (11:14)
[2019-06-23] MEDS: THERA M PLUS PO SCH (11:14)
[2019-06-23] MEDS: ELMIRON PO SCH ×3 (11:14→22:25)
[2019-06-23] MEDS: COLACE PO SCH ×2 (11:14→22:25)
[2019-06-23] MEDS: POTASSIUM CHLORIDE 20 MEQ/SWI 20 MEQ/100 ML IVPB IV SCH ×2 (12:07→14:18)
--- NOTE | 2019-06-23 13:18 | HEMO/ONC PROGRESS NOTE ---
DATE: 06/23/2019 SUBJECTIVE: Mr. Patel is lying in bed this morning, awake and alert. His is at bedside. The patient knows who I am this morning. He answers questions appropriately. He states he feels rather well. He admits he is confused about how he got here. His states he has improved greatly. OBJECTIVE: Vital Signs: Temperature 98.2 degrees, pulse rate 76, respiratory rate 18, blood pressure 159/62, O2 saturation 97% on room air. He is in 0/10 pain. Physical Examination: General: He is comfortable, in no acute distress. HEENT: Sclerae are anicteric. PERRLA. Oral mucosa is normal. Cardiovascular: Normal S1, S2. Heart: Rate and rhythm regular. Respiratory: Lung sounds are clear to auscultation. Normal respiratory effort. Extremities: No edema noted to the lower extremities. Neurological: Awake and alert. Answers questions appropriately. Confused about where he was but oriented easily. Laboratory: WBCs 13.06, hemoglobin 8.6, hematocrit 28.6, platelet count 186,000. Potassium 2.7, creatinine 1.5, phosphorus 2.7, magnesium 1.5. Ammonia 15. Radiology: CT of abdomen and pelvis: 1. Bilateral small pleural effusions and adjacent lower lobe atelectasis. 2. Malpositioned left ureteral stent with the proximal tip doubled back in the left ureter. Hydronephrosis on the left has improved. 3. Thickened urinary bladder wall, in part due to underdistention. ASSESSMENT AND PLAN: 1. 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 He continues on immunotherapy. 2. Encephalopathy. The patient's antibiotic coverage was broadened to Zyvox/Zosyn. The patient has appeared to improve mentally. Appreciate ID and neurology input. 3. Deep venous thrombosis prophylaxis. Get the patient out of bed today. Please put sequential compression devices on the patient. 4. Left Hydronephrosis: Per Dr. Garibay. Appears Improved. Dictated by SHALONDA Alvarado for Benson Espinoza MD cc: Benson sEpinoza MD [facility]
--- NOTE | 2019-06-23 13:25 | PROGRESS NOTE ---
DATE: 06/23/2019 INTERVAL HISTORY: The patient relatively asymptomatic at this point. Mental status much improved. Reasonable urine output. No new complaints. REVIEW OF SYSTEMS: Twelve point review of systems negative except as per interval history. LABS: WBC 13.0, hemoglobin 8.6, hematocrit 28.6, platelets 186,000. Sodium 144, potassium 2.7, BUN 17, creatinine 1.5, glucose 107. CT abdomen and pelvis with small pleural effusions, malpositioned left ureteral stent, but improved hydronephrosis on the left. Fairly stable severe right-sided hydronephrosis. Thickened urinary bladder. VITALS: T-max 98.7 degrees, pulse 76, respirations 18, blood pressure 159/62, O2 saturation 97% on room air. PHYSICAL EXAMINATION: General: No acute distress. Vitals: As above. HEENT: Normocephalic, atraumatic. Moist mucous membranes. No cervical adenopathy. Cardiovascular: Regular rate and rhythm. No murmurs noted. Pulmonary: Clear to auscultation bilaterally. No wheezing, rales, or rhonchi. Abdomen: Soft. Bowel sounds positive. Nontender. Extremities: Peripheral pulses intact. No clubbing or cyanosis. Neurologic: Cranial nerves grossly intact. Mild stable right upper extremity weakness. No clear focal deficits. Psychiatric: Normal mood and affect. Asleep but easily arousable. Oriented to person and place but not time. Cooperative with all commands. Most answers are appropriate. ASSESSMENT AND PLAN: 1. Bladder cancer with metastasis, status post exploratory laparotomy by Dr. Veloz. CT with continued hydronephrosis on the right as above. Awaiting further recommendations from urology. 2. Metabolic encephalopathy likely multifactorial with likely underlying mild cognitive impairment on top of acute illness and surgery. His improvement does appear to have coincided with the addition of Zyvox by Infectious Disease yesterday, so uncertain how much occult infection may have played in but does appear to be much improved now. Continue to monitor. 3. Acute kidney injury on likely chronic kidney disease 3, improved. 4. Hypertension. Acceptable control on current regimen, monitor. 5. Coronary artery disease. Normal EF on last check. Monitor. 6. Generalized weakness. Continue PT. 7. Leukocytosis, improving with addition of Zyvox yesterday by ID. Source of infection is not entirely clear but does appear to be improving. 8. History of prostate cancer. Aware. 9. History of gastric cancer with radiation, chemo, and surgery in 2018, aware. 10. Anemia, likely anemia of chronic disease. Did get transfused 1 unit. It has been fairly stable since then.
--- NOTE | 2019-06-23 16:46 | INFECTIOUS DISEASE PROGRESS NO ---
DATE: 06/23/2019 PRESENT ILLNESS: The patient is status post urologic surgery. He has leukocytosis which has decreased since starting the patient on Zyvox. MEDICATIONS: The patient currently is receiving Zosyn. This is the 4th day of treatment with that antibiotic and yesterday Zyvox was started, so the patient has had 1 day of treatment with that antibiotic. PHYSICAL EXAMINATION: Vital Signs: Temperature is 98.2 degrees, pulse 76, respirations 26, blood pressure 159/62. General: This is a somewhat ill-appearing elderly male. He is in no acute distress today. Head/eyes/ears/nose/throat: He can hear my spoken words and see near objects. He does not have any white coating on his tongue. Neck: No pain with movement. Lungs: Clear to auscultation. Cardiovascular: Heart rate is regular. Abdomen: Soft and nontender. The patient has a tube coming out of the lower part of the abdomen. Neurologic: Today the patient is more alert and he also ate a little bit more than he had been. He can move his extremities. LAB AND X-RAY: CBC shows white count is down to 13,060, hemoglobin 8.6, platelet count 186,000. Creatinine is 1.5. GFR is 45. Blood cultures are negative. Urine culture is mixed. CT scan of the abdomen shows among other things pelvic edema and fluid. ASSESSMENT AND PLAN: The patient's leukocytosis is decreasing. My plan is to continue with Zyvox and Zosyn. COMORBIDITIES: The patient underwent urologic surgery for his cancer. cc: Toni Wong MD
[2019-06-24] MEDS: ZOSYN 2.25 GM in NS 50 ML IV SCH ×5 (00:07→23:36)
[2019-06-24] MEDS: ZYVOX 600 MG/D5W 600 MG/300 ML IVPB IV SCH ×2 (03:53→15:34)
[2019-06-24] MEDS: TYLENOL PO PRN ×2 (06:24→18:48)
[2019-06-24] MEDS: MIRALAX PO SCH ×4 (08:08→23:39)
[2019-06-24] MEDS: VICON-C PO SCH (10:06)
[2019-06-24] MEDS: THERA M PLUS PO SCH (10:06)
[2019-06-24] MEDS: CALTRATE 600 + D PO SCH (10:06)
[2019-06-24] MEDS: ELMIRON PO SCH ×3 (10:06→23:38)
[2019-06-24] MEDS: NORVASC PO SCH ×2 (10:06→23:38)
[2019-06-24] MEDS: ZINC SULFATE PO SCH ×2 (10:07→23:37)
[2019-06-24] MEDS: REMERON PO SCH (10:07)
[2019-06-24] MEDS: COLACE PO SCH ×2 (10:07→23:36)
[2019-06-24] MEDS: LOZOL PO SCH (10:07)
[2019-06-24] MEDS: BYSTOLIC PO SCH (10:07)
[2019-06-24] MEDS: BENICAR PO SCH (10:08)
[2019-06-24] MEDS: PEPCID PO SCH ×2 (10:08→23:37)
[2019-06-24] MEDS: NS 1,000 ML IV SCH (11:23)
--- NOTE | 2019-06-24 13:28 | PROGRESS NOTE ---
DATE: 06/24/2019 SUBJECTIVE: Mr. Patel continues to be stable and improved neurologically. There is not evidence of stroke or other recent neurologic event. His altered mental state has steadily improved. I discussed neurology situation briefly with . I do not have any new suggestions today. Thanks for asking Neurology to see Mr. Patel. cc: Evelia Aviles III, MD
[2019-06-24] MEDS ORDERED: POTASSIUM CHLORIDE 60 MEQ in NS 500 ML IV ONE (16:00)
--- NOTE | 2019-06-24 19:52 | PROGRESS NOTE ---
DATE: 06/24/2019 INTERVAL HISTORY: The patient with no major issues overnight. Reportedly had some leakage from either his surgical incision or more likely his suprapubic catheterization, but no drainage seen at the time of my exam. Remains mildly confused, but mental status baseline according to family. No new complaints. Reasonable urine output. REVIEW OF SYSTEMS: A 12 point review of systems negative except as per Interval History. LABORATORY DATA: WBC 13.0, hemoglobin 8.6, hematocrit 28.6, platelets 186,000. Sodium 144, potassium 2.7, bicarbonate 22, BUN 17, creatinine 1.5, glucose 107. VITALS: Temperature maximum 98.6 degrees, pulse 72, respirations 16, blood pressure 163/65, O2 saturation 98% on room air. PHYSICAL EXAMINATION: General: No acute distress. Vitals: As above. HEENT: Normocephalic, atraumatic. Moist mucous membranes. Neck: No cervical adenopathy. Cardiovascular: Regular rate and rhythm. No murmurs noted. Pulmonary: Clear to auscultation bilaterally. No wheezing, rales, or rhonchi. Abdomen: Soft. Bowel sounds positive. Nontender. Suprapubic incision clean, dry, intact. No drainage noted. Suprapubic catheterization also noted with no obvious drainage or leakage. Extremities: Peripheral pulses intact. No clubbing or cyanosis. Neurologic: Cranial nerves grossly intact. Mild stable right upper extremity weakness, but no clear new focal deficits. Psychiatric: Normal mood and affect. Oriented to person only today. Cooperative and conversant. Most answers are appropriate. ASSESSMENT AND PLAN: 1. Bladder cancer with metastasis. Status post exploratory laparotomy by Dr. Veloz. CT with continued hydronephrosis on the right, but on discussion with Urology, this has been stable for an extended period of time. Did not seem to improve with stenting, so likely whatever damage has been done is irreversible at this point, and there is no need for further urologic intervention at this time. 2. Metabolic encephalopathy. Likely multifactorial with underlying MCI versus dementia and then acute illness and surgery. Remains mildly confused, but family states that he is essentially at his baseline at this point. Improved after the addition of Zyvox by ID so there is some concern for infection that was not being treated by Zosyn alone, although the exact source of that infection is not really known. Nevertheless, mental status improved and white count coming down on Zyvox. Discussed with Infectious Disease and tentative plan to change to oral Zyvox and Augmentin tomorrow if he continues to improve. 3. Acute kidney injury on chronic kidney disease stage 3. Essentially resolved at this point. 4. Hypertension. Acceptable control on current regimen. Monitor. 5. Coronary artery disease. Normal EF on last check. Monitor. 6. Generalized weakness. Continue physical therapy. 7. Leukocytosis, improving with addition of Zyvox 06/22/2019 by Infectious Disease. Monitor. 8. History of prostate cancer. Aware. 9. History of gastric cancer with radiation, chemotherapy, and surgery in 2018. Aware. 10. Anemia, likely anemia of chronic disease, fairly stable.
--- NOTE | 2019-06-24 20:46 | INFECTIOUS DISEASE PROGRESS NO ---
DATE: 06/24/2019 PRESENT ILLNESS: The patient is status post urologic surgery. He had a leukocytosis, which is improving. MEDICATIONS: The patient is on Zosyn now for 5 days and Zyvox now for 2 days. PHYSICAL EXAMINATION: Vital Signs: Temperature is 98.5 degrees, pulse 77, respirations 16, blood pressure 155/64. General: This is a somewhat ill-appearing, elderly male. He is in no acute distress. Head, eyes, ears, nose, and throat: He can hear my spoken words and see near objects. I did not notice any white coating on his tongue. Neck: He did not have any pain when he moved his neck. Lungs: Clear to auscultation. Cardiovascular: Heart rate is regular. Abdomen: Soft and nontender. A percutaneous tube is present in the lower part of the abdomen. The tube site is not erythematous or purulent. Neurologic: The patient is more alert. He can move his extremities. He is eating more also. LABORATORY AND X-RAY: There is no new radiographic study for today, and there is no new laboratory study done either. ASSESSMENT AND PLAN: The patient had a leukocytosis following his urologic procedure. He seems to be getting better. I have discussed with Dr. Kathleen and our plan will be that we will repeat the patient's CBC and BMP tomorrow, and if the white count is continuing to come down, the patient's kidney function is getting better, and the patient is doing well, the patient will go home on a combination of Augmentin 875 mg p.o. every 12 hours and Zyvox 600 mg p.o. every 12 hours. I will be planning on having the patient come to my office in approximately a week and repeat his lab work. COMORBIDITIES: The patient is elderly and he went through an extensive urologic surgery. The patient has had 3 malignancies. cc: Toni Wong MD
[2019-06-25] MEDS: ZOSYN 2.25 GM in NS 50 ML IV SCH (06:17)
[2019-06-25] MEDS: ZYVOX 600 MG/D5W 600 MG/300 ML IVPB IV SCH (06:17)
[2019-06-25 06:38] LABS: BASO# 0.01 X1000 (0.0-0.2); BASO% 0.1 % (0.0-0.8); EOS% 2.2 % (0.0-10.0); HEMATOCRIT 28.9 % (42.0-52.0); HEMOGLOBIN 8.7 g/dL (14.0-18.0); IMM GRAN# 0.28 X1000 (0.0-0.04); LYMPH# 1.49 X1000 (1.2-3.4); LYMPH% 10.7 % (20.5-51.1); MCH 25.7 PG (27-31); MCHC 30.1 g/dL (33-37); MCV 85.3 FL (81-99); MONO% 7.2 % (1.7-9.3); MPV 10.4 FL (7.4-10.4); NEUT# 10.79 X1000 (1.4-6.5); NEUT% 77.8 % (42.2-75.2); PLT 206 X1000 (130-400); RBC 3.39 XMIL (4.7-6.1); RDW 14.9 % (11.5-14.5); WBC 13.87 X1000 (4.8-10.8)
[2019-06-25 07:33] LABS: CALCIUM 8.3 mg/dL (8.8-10.2); CREATININE 1.7 mg/dL (0.7-1.2); POTASSIUM 3.2 mmol/L (3.5-5.1)
[2019-06-25 07:42] VITALS: BP 179/62
[2019-06-25] MEDS: BENICAR PO SCH (08:58)
[2019-06-25] MEDS: BYSTOLIC PO SCH (09:03)
[2019-06-25] MEDS: ZINC SULFATE PO SCH (09:04)
[2019-06-25] MEDS: COLACE PO SCH (09:05)
[2019-06-25] MEDS: VICON-C PO SCH (09:05)
[2019-06-25] MEDS: LOZOL PO SCH (09:06)
[2019-06-25] MEDS: CALTRATE 600 + D PO SCH (09:07)
[2019-06-25] MEDS: NORVASC PO SCH (09:08)
[2019-06-25] MEDS: THERA M PLUS PO SCH (09:08)
[2019-06-25] MEDS: MIRALAX PO SCH (09:09)
[2019-06-25] MEDS: REMERON PO SCH (09:09)
[2019-06-25] MEDS: PEPCID PO SCH (09:10)
[2019-06-25] MEDS: ELMIRON PO SCH (09:14)
[2019-06-25] MEDS ORDERED: KLOR-CON PO ONE (10:33)
--- NOTE | 2019-06-25 17:25 | INFECTIOUS DISEASE PROGRESS NO ---
DATE: 06/25/2019 PRESENT ILLNESS: The patient is status post urologic surgery. He had leukocytosis, which has been improving. MEDICATIONS: Currently, the patient is on Zosyn and Zyvox. PHYSICAL EXAMINATION: Vital Signs: Temperature is 98.6 degrees, pulse 80, respirations 16, blood pressure 179/62. General: This is a somewhat ill-appearing, elderly male. He is in no acute distress. It should be noted that the patient, according the family, looks much better. He is talking more. He has been up in a chair and he has been walking, and his appetite is better. Head, eyes, ears, nose, and throat: He can hear my spoken words and see near objects. He does not have any white patches in his mouth. Neck: No pain with movement. Lungs: Clear to auscultation. Cardiovascular: Heart rate is regular. Abdomen: Soft and it was not tender when I lightly palpated his abdomen. The patient has a percutaneous tube in the lower part of the abdomen. The tube site is not erythematous or purulent. Neurologic: The patient is more alert. As mentioned above, he has been standing and walking a few steps, and his appetite is improved. LABORATORY AND X-RAY: CBC today showed a white count of 13,870, hemoglobin 8.7, and platelet count 206,000. Creatinine is 1.7, GFR is 39. There is no new radiographic study today. ASSESSMENT AND PLAN: The patient has leukocytosis following a urologic procedure. He is getting better and our plan is to send the patient home today on the following medications: Augmentin 500/125 p.o. every 12 hours and Zyvox 600 mg p.o. every 12 hours, both of these will be for 7 days. I plan on having the patient come to my office in a week. At which time, he will be examined and his lab work, specifically a CBC and creatinine, will be repeated. COMORBIDITIES: The patient is elderly. He has had extensive urologic surgeries and he has a history of 3 malignancies. The patient has had gastric cancer, bladder cancer, and prostate cancer. cc: Toni Wong MD
--- NOTE | 2019-06-27 19:16 | DISCHARGE SUMMARY ---
ADMISSION DATE: 06/18/2019 DISCHARGE DATE: 06/25/2019 CONSULTS: Infectious Disease, Dr. Wong. Neurology, Dr. Aviles; Hematology-Oncology, Dr. Espinoza; Urology Dr. Garibay; General Surgery, Dr. Veloz. PROCEDURES: Numerous metastatic nodules were noted during an open procedure where the right ureteral stent was removed, a left stent was replaced, and a suprapubic catheter was placed into the bladder, and bladder mucosa was reapproximated with suture. HOSPITAL COURSE: Subsequent to the procedure, patient had significant confusion and encephalopathy. It was thought initially just to be due to his underlying comorbidities including cancer, chronic kidney disease, likely MCI, and the surgery itself, but it persisted for several days. He had been on antibiotics with the Zosyn with little change. Infectious Disease was involved and started Zyvox despite no clear source of infection. After the addition of Zyvox, the patient's leukocytosis came down, and his mental status improved to baseline. Of note, his baseline was oriented times to person and sometimes to place, but never to time, but he was coherent for the most part and cooperative, which the family stated was pretty much how he always was. White count got as high as 16.5. It was down to 13.8 at discharge. The patient also had an elevated creatinine after the procedure up to 2.7. With antibiotics and fluids, it came down and was 1.[address] of the abdomen performed for further evaluation later in this hospitalization showed the left-sided ureteral stent not in perfect position, but appeared to be draining well, and severe right hydronephrosis. This was discussed with Urology. This stated that he had severe right-sided hydronephrosis for quite some time. It had been stented previously with no significant improvement. It was thought that further intervention on that side would not produce any useful results. Once the patient's mental status was improved and remaining stable, and his leukocytosis was also improving, it was decided that the patient was stable for discharge home. He was transitioned to oral Zyvox and Augmentin for empiric therapy, although the exact source of infection was never entirely clear. A urinary source seemed likely, but his improvement with Zyvox would tend to argue against that. No skin infection or pneumonia was ever identified. The patient was discharged home in stable condition to follow up with PCP. Urology and Hematology- Oncology. His other chronic comorbidities were stable. DISCHARGE VITALS: Temperature 98.6, pulse 80, respirations 16, blood pressure 179/62, O2 saturation 95% on room air. DISCHARGE DIET: Regular. DISCHARGE MEDICATIONS: Nebivolol 10 mg p.o. daily, indapamide 1.25 mg p.o. daily, mirtazapine 30 mg p.o. daily, Norvasc 5 mg p.o. daily, olmesartan 40 mg p.o. daily, multivitamin daily, tramadol 50 mg p.o. 4 times a day as needed, Zyvox 600 mg p.o. b.i.d. for 7 days, Augmentin 500-125 b.i.d. x7 days. FOLLOWUP AND PLAN: Patient discharging home on empiric Zyvox and Augmentin. Patient to follow up with Urology, PCP and Hematology-Oncology. Greater than 30 minutes spent arranging discharge and counseling patient.
== END 2019-06-25 12:00 | disposition home or self-care (01) | DRG 988 ==
LOC: OR 12:02 → ICU 12:02 → INTOOBSV 15:58 → OBSVTOIN 15:58 → SUATTDRO 15:58 → ICU 15:59 → 4N 06-19 11:03
PROVIDERS: ADMIT Internal Medicine; ATTEND Internal Medicine

== ENCOUNTER 2019-08-07 09:12 | Inpatient (IN) ==
[2019-08-07] MEDS ORDERED: NS 1,000 ML IV ONE (09:33)
[2019-08-07] MEDS ORDERED: NS 500 ML IV ONE ×2 (09:33→10:54)
[2019-08-07 10:59] LABS: BASO# 0.01 X1000 (0.0-0.2); BASO% 0.1 % (0.0-0.8); HEMATOCRIT 23.4 % (42.0-52.0); HEMOGLOBIN 7.1 g/dL (14.0-18.0); IMM GRAN# 0.14 X1000 (0.0-0.04); IMM GRAN% 0.9 % (0.0-0.5); LYMPH# 2.28 X1000 (1.2-3.4); LYMPH% 14.7 % (20.5-51.1); MCH 26.3 PG (27-31); MCHC 30.3 g/dL (33-37); MCV 86.7 FL (81-99); MONO# 1.11 X1000 (0.11-0.59); MONO% 7.1 % (1.7-9.3); MPV 10.4 FL (7.4-10.4); NEUT# 12.02 X1000 (1.4-6.5); NEUT% 77.2 % (42.2-75.2); PLT 230 X1000 (130-400); RDW 17.3 % (11.5-14.5); WBC 15.56 X1000 (4.8-10.8)
[2019-08-07 11:12] LABS: ALB/GLOB RATIO 0.8; ALBUMIN 2.6 g/dL (3.5-5.0); CALCIUM 7.5 mg/dL (8.8-10.2); CREATININE 4.5 mg/dL (0.7-1.2); TOTAL BILIRUBIN 0.26 mg/dL (0.20-1.00); TOTAL PROTEIN 5.8 g/dL (6.3-8.3)
[2019-08-07 11:46] LABS: INR 1.17; PROTIME 15.1 Seconds (11.0-16.0)
[2019-08-07 11:47] LABS: PTT 37.3 Seconds (22.3-41.8)
[2019-08-07 11:55] LABS: URINE SOURCE CLEAN CATCH
[2019-08-07 12:00] LABS: BILIRUBIN URINE NEGATIVE (NEGATIVE); BLOOD URINE MODERATE (NEGATIVE); COLOR BROWN; GLUCOSE URINE NEGATIVE (NEGATIVE); KETONE URINE NEGATIVE (NEGATIVE); LEUKOCYTES URINE LARGE (NEGATIVE); NITRITE URINE POSITIVE (NEGATIVE); PH URINE 5.5; PROTEIN URINE 200 mg/dL (NEGATIVE); SP GRAVITY URINE 1.011; TURBIDITY URINE TURBID (CLEAR); UROBILINOGEN URINE NORMAL (NORMAL)
[2019-08-07 12:04] LABS: UR EPITHELIAL CELLS >10 /HPF (<10); URINE BACTERIA 3+ /HPF; URINE RBC 20-40 /HPF (<10); URINE WBC TNTC /HPF (<10)
[2019-08-07 12:06] LABS: URINE CASTS NONE SEEN; URINE YEAST NONE SEEN
--- NOTE | 2019-08-07 12:16 | PROVIDER DOCUMENTATION ---
This chart was entered by Diana Knowles Scribe, acting as scribe for Bimal Escalona MD. HPI-General Adult - General Chief Complaint: Abnormal Lab[s] Stated Complaint: ABNORMAL LABS Time Seen by Provider: 08/07/19 09:22 Source: patient Allergies/Adverse Reactions: Patient Allergies Allergy/AdvReac Type Severity Reaction Status Date / Time No Known Allergies Allergy Verified 08/07/19 09:51 Home Medications: Home Medication List Medication Instructions Recorded Confirmed Last Taken Type Indapamide 1.25 mg PO DAILY 04/26/19 08/07/19 08/07/19 History Nebivolol HCl [Bystolic] 10 mg PO DAILY 04/26/19 08/07/19 08/07/19 History Olmesartan Medoxomil 40 mg PO DAILY 04/26/19 08/07/19 08/07/19 History Amlodipine [Norvasc] 5 mg PO DAILY 05/21/19 08/07/19 08/07/19 History - History of Present Illness -Gen Adult Nature of Presenting Problems: 83 yom presents to the ed from dr dorado's officve this am. pt went for a blood transfusion and was noted to have abnormal labs and was sent for a renal work up. pt on exam is nontoxic in appearance and in no distress. pt is hypotensive upon arrival to ed and sts his pcp has been recently adjusting his BP medications Location of Pain/Injury: reports: none Pain Radiation: reports: no radiation Quality of Pain: reports: none Severity: reports: moderate Onset/Duration: reports: this morning Timing: reports: still present Context/Activities at Onset: reports: light activity Modifying Factors: improves with: nothing Associated Symptoms: reports: denies symptoms Similar Symptoms Previously?: Yes Recently seen or treated by another doctor?: Yes (dr dorado) Review of Systems - Adult - REVIEW OF SYSTEMS - ADULT Constitutional: denies: fatique Eyes: denies: blurred vision, double vision Ears, Nose, Mouth & Throat: reports: no symptoms reported Cardiovascular: denies: chest pain, palpitations Respiratory: denies: cough, shortness of breath, wheezing Gastrointestinal: denies: abdominal pain, diarrhea, nausea, vomiting Genitourinary: reports: no symptoms reported Musculoskeletal: denies: back pain, neck pain Integumentary: reports: no symptoms reported Neurological: denies: dizziness/vertigo, headache/migraines Psychiatric: reports: no symptoms reported Endocrine: reports: no symptoms reported Hematologic/Lymphatic: reports: no symptoms reported Allergic/Immunologic: reports: no symptoms reported All Other Systems: Reviewed and Negative Past History - Adult - PAST MEDICAL HISTORY-ADULT Review of Records: reports: Old Records Reviewed, Nursing Assessment Review, Medications Reviewed, Social history reviewed & non-contributory. Major Childhood Illnesses: reports: denies history Cardiovascular: reports: HTN, hyperlipidemia Respiratory: reports: denies history Gastrointestinal: reports: cancer (stomach) Genitourinary: reports: retention, prostate cancer, other (hematuria) Musculoskeletal: reports: denies history Neurological: reports: denies history Psychiatric: reports: denies history Endocrine/Immune: reports: denies history Other Conditions: reports: denies history - PRIOR SURGERIES/PROCEDURES Surgical/Procedure History: reports: other (cystoscopy, TURP) - PRIOR HOSPITALIZATIONS Prior Hospitalizations: reports: none - IMMUNIZATION STATUS Childhood Immunizations: See Nurse Assessment Flu Vaccine: See Nurse Assessment - FAMILY HISTORY Family History: reviewed, not pertinent - SOCIAL HISTORY Smoking: denies Substance Use: denies Living Situation: family Physical Exam-General - PHYSICAL EXAM-ADULT Initial Vital Signs Reviewed: Yes (noted BP-75/45) - CONSTITUTIONAL General Appearance: appears well, alert, no apparent distress, thin - EYES Eyes: PERRL/EOMI, pink conjunctivae - HEAD, EARS, NOSE, MOUTH & THROAT HENMT: moist mucous membranes - NECK Neck: full range of motion, normal inspection - RESPIRATORY Respiratory: chest non-tender, lungs clear, normal breath sounds - CARDIOVASCULAR Cardiovascular: normal peripheral pulses, bradycardia (58) - CHEST (BREASTS) Chest/Breast: deferred - GASTROINTESTINAL (ABDOMEN) Abdominal Exam: normal bowel sounds, non tender, soft - GENITOURINARY Male Genitalia: deferred Rectal Exam: deferred Hemoccult Exam: deferred - MUSCULOSKELETAL Back Exam: no CVA tenderness, no vertebral tenderness Extremity: normal range of motion, non-tender, normal inspection - SKIN Integumentary: normal color, normal turgor, warm/dry - NEUROLOGIC Neurologic: grossly normal - PSYCHIATRIC Psych/Mental Status: normal mood/affect, normal thought content, normal thought process, oriented x 3 Progress - PLAN OF CARE/RESULTS Progress/Plan/Lab Results: Vital Signs - 8 hr 12/20/19 09:15 Temperature 97.4 F L Pulse Rate 71 Respiratory Rate 16 Blood Pressure 75/45 O2 Sat by Pulse Oximetry 98 Orders Category Date Time Status CBC WITH DIFF [HEME] Stat Lab 08/07/19 09:50 Results COMPREHENSIVE METABOLIC PANEL [CHEM] Stat Lab 08/07/19 09:50 Received TYPE & SCREEN [BBK] Stat Lab 08/07/19 09:50 Received 0.9% Sodium Chloride Inj [Ns] 1,000 ml Med 08/07/19 09:33 Active IV 150 mls/hr 0.9% Sodium Chloride Inj [Ns] 500 ml Med 08/07/19 09:33 Discontinued IV 999 mls/hr There is no suspicion of infection Result Diagrams: 08/07/19 09:50 08/07/19 09:50 - CONSULTS/PCP/HOSPITALIST Notification #1 *Consult/PCP/Hospitalist*: Janice Savage Time Discussed: 12:15 Consult Disposition: Will see in ED, Admit Departure - Departure Date of Disposition Decision: 08/07/19 Time of Disposition Decision: 09:30 DIAGNOSIS: Acute on chronic renal insufficiency Anemia Qualifiers: Anemia type: unspecified type Qualified Code(s): D64.9 - Anemia, unspecified Disposition: ADMITTED INPATIENT 09 Certified Medical Emergency: Emergent Condition: Good Referrals and Follow-Ups: Floyd Green [Primary Care Provider] - - Critical Care Note This patient required my direct & personal management of CC.: Yes Total Time (mins): 32 Critical Care Statement: This patient required my direct personal management to treat or rule out processes, the absence of which, could potentiallly result in sudden, clinically significant life or limb threatening deterioration. Attestation - Physician/ LIBERTAD Attestation Patient care was provided by Advanced Practice Provider:: No The physician spent face to face time with patient:: Yes Advanced Practice Provider documentation review:: Supervising physician onsite and consulted in the evaluation and care of this patient. The physician did have a face to face encounter with the patient. This chart was documented by the indicated scribe, (Diana Knowles Scribe) and accurately reflects the services I performed and decisions made by me, Bimal Escalona MD, as attested by the provider's signature.
--- NOTE | 2019-08-07 12:52 | Diag Imaging Result Doc PS360 ---
EXAM: CHEST-PORTABLE 08/07/2019 HISTORY: admit TECHNIQUE: Erect AP portable at 1242 COMMENT: There is a Port-A-Cath on the right with its tip in the right atrium. There is a platelike opacity in the right base which was not present on 04/26/2019. The inspiration is less optimal. IMPRESSION: Atelectasis versus bronchopneumonia right lower lobe. Electronically signed by Samm Quiroz 08/07/2019 12:50 PM
[2019-08-07] MEDS ORDERED: ZOFRAN IV PRN (13:15)
[2019-08-07] MEDS: ROCEPHIN 1 GM in NS 50 ML IV SCH (13:31)
[2019-08-07] MEDS: NS 1,000 ML IV SCH ×2 (13:32→22:35)
[2019-08-07] MEDS: POTASSIUM CHLORIDE 20 MEQ/SWI 20 MEQ/100 ML IVPB IV SCH ×2 (14:25→18:46)
--- NOTE | 2019-08-07 15:42 | HISTORY AND PHYSICAL ---
PRIMARY CARE PHYSICIAN: Floyd Green MD. ONCOLOGIST: Benson Espinoza MD. CHIEF COMPLAINT: Was sent here from Oncology after he had gone to get a blood transfusion today, but when labs were checked his creatinine was elevated and so he was sent to the emergency room for evaluation. HISTORY OF PRESENTING ILLNESS: This is an 83-year-old male who presents to [facility] ER from infusion where he had presented to get a blood transfusion today. He has known bladder cancer and stage IV prostate cancer and also had gastric cancer in 2007. He was supposed to get 2 units of packed red blood cells today but when he arrived, they checked his labs and his creatinine had increased dramatically so they sent him to the emergency room for evaluation. When he arrived, his white blood cell count was 15.56, hemoglobin 7.1, hematocrit 23.4. His potassium was 3, BUN was 71, creatinine of 4.5. It was noted on 07/09/2019 his creatinine was 2.6. His baseline appears to be in the low 2s. His troponin was 0.102. He has a suprapubic catheter that was recently placed last month and he now has positive nitrites, large leukocytes, 3+ bacteria. When he arrived to the emergency room, his blood pressure was low at 75/45. He was given a total of two 1000 mL boluses. His blood pressure is now up to 100/41, so he will be admitted to the PVC unit for further evaluation and treatment. It is noted that the was not happy about him being admitted at first, she refused the admission stating that they were going to go home. I did discuss minimally with them about if she did go home due to him being so sick, it would be against medical advice. Also brought up the subject of hospice and the said "we're not going to have hospice" so I encouraged her to have him admitted to treat him as he is septic and very sick and she finally agreed to allow him to be admitted to the PVC unit for further evaluation and treatment. PAST MEDICAL HISTORY: Stage IV prostate cancer, coronary artery disease, erectile dysfunction, gastric cancer in 2007, hypertension, fossa navicularis proximal bulbar strictures, bladder cancer, and chronic kidney disease. PAST SURGICAL HISTORY: Suprapubic catheter placement, heart stents, gastric resection status post him having gastric cancer. FAMILY HISTORY: Reviewed and noncontributory. SOCIAL HISTORY: He currently lives with his . Denies any tobacco, alcohol, or illicit drug use. ALLERGIES: He has no known drug allergies. HOME MEDICATIONS: Home medications will all be held at this time, but he takes Norvasc 5 mg p.o. daily, indapamide 1.25 mg p.o. daily, Bystolic 10 mg p.o. daily, and olmesartan 40 mg p.o. daily. LABORATORY DATA: Showed a white blood cell count of 15.56, hemoglobin 7.1, hematocrit 23.4, platelets 230,000. PT and INR of 15.1 and 1.17. Sodium 138, potassium of 3, chloride 95, CO2 19, BUN of 71, creatinine 4.5, glucose of 160. Creatine kinase was 45. Troponin was 0.102. Urinalysis showed positive nitrites, large leukocytes, 3+ bacteria. Chest x-ray is pending at this time. REVIEW OF SYSTEMS: He denied any fever, chills, blurred vision, dizziness. He has had fatigue and weakness. Denied any abdominal pain, constipation, diarrhea. He has a suprapubic catheter so no burning with urination noted. PHYSICAL EXAMINATION: VITAL SIGNS: On arrival he had a temperature of 97.4 degrees, pulse 71, respirations 16, blood pressure 75/45. After fluid resuscitation of 2 L of normal saline, he is now up to 100/41. GENERAL: This is an 83-year-old frail, male lying in the bed and answers questions appropriately. HEENT: Normocephalic, atraumatic. Normal ENT inspection. Oropharynx and nares are clear. Eyes: Pupils are equal, round, and reactive to light and accommodation. Extraocular movements are intact. NECK: Normal inspection. Normal range of motion. LUNGS: Clear to auscultation bilaterally with equal lung expansion and chest wall movement. HEART: Regular rate and rhythm. No murmurs, rubs, or gallops. He has had some mild bradycardia in the upper 50s, 57 to 59. ABDOMEN: Soft, nontender, nondistended. Bowel sounds are present x4 quadrants. GENITOURINARY: He has an indwelling suprapubic catheter with a left leg bag draining clear, yellow urine. MUSCULOSKELETAL: He has 3/5 strength x4 extremities. NEUROLOGICAL: Cranial nerves II through XII grossly intact. ASSESSMENT: 1. Sepsis. 2. Urinary tract infection. 3. Leukocytosis. 4. Hypotension. 5. Anemia. 6. Acute on chronic kidney disease. 7. Elevated troponin, most likely elevated due to his creatinine elevation. 8. Hypokalemia. PLAN: He will be admitted to the PVC unit, placed on telemetry, O2 per protocol, regular diet. We will give him potassium 20 mEq IV q.4 h. x2 bags, normal saline at 125 mL an hour, Rocephin 1 gram IV q.24 h., urine culture is pending. We are going to transfuse 2 units of packed red blood cells. Recheck a CK and troponin now. Recheck a CBC and BMP in the a.m. Blood cultures x2 are pending. We will apply SCDs for DVT prophylaxis. We will hold all of his home medications at this time due to being hypotensive and further orders after seen by attending. Dictated by SHALONDA Cervantes for Jeremias Savage MD cc: SHALONDA Cervantes MD I agree with most components of history, physical, assessment and plan. A separate addendum has been dictated. [facility]
[2019-08-07 17:02] LABS: HEMATOCRIT 24.5 % (42.0-52.0); HEMOGLOBIN 7.4 g/dL (14.0-18.0)
--- NOTE | 2019-08-07 21:29 | HISTORY AND PHYSICAL ---
ADDENDUM: This is an addendum to History and Physical dictated by nurse practitioner. I agree with most components of history, physical, assessment and plan. In brief, Mr. 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 In the emergency room, he was found to be septic due to leukocytosis, tachycardia, and pyuria with lactic acidosis. He was also found to be hypotensive, so the hospitalist team was consulted for further management. SUBJECTIVE: The patient does have hearing impairment and has some memory impairment, so most of the history was obtained from his at bedside. However, patient did not have any fevers, chills, shortness of breath, or cough. He did not have any nausea. He did not have any vomiting, constipation, or diarrhea. at the bedside states that he has had significantly decreased appetite and has had functional decline in the last couple of months. VITAL SIGNS: Temperature of 98.6 degrees, pulse 67, respiratory rate 114/82, saturating 98% on room air. PHYSICAL EXAMINATION: GENERAL: Not in acute distress. ORAL CAVITY: Moist. LUNGS: Air entry bilaterally equal. No wheeze, rhonchi, or crackles. He does have a right-sided chest port. CARDIOVASCULAR: S1, S2 normal. He has systolic murmur affecting right second intercostal space. No rub or gallop. ABDOMEN: Soft, nontender. He does have a midline scar of previous laparotomy which is well healed. He has a urine drainage tube coming out from right lower quadrant with clear urine. EXTREMITIES: He does not have lower extremity edema. He is able to raise both upper and lower extremities above ground level, though appears weak. He had received intravenous bolus and is currently receiving intravenous fluids and blood transfusion. NEUROLOGIC: He is alert. He is hard of hearing. He follows all simple commands though. LABS: Suggestive of leukocytosis, normocytic anemia, normal platelet count, normal coagulation, hypokalemia, hypochloremia, elevated BUN and creatinine. His initial troponin was elevated to 0.102, which improved to 0.06. He has pyuria with hematuria. MICROBIOLOGY: Blood culture and urine culture are in Lab. IMAGING: Chest x-ray had atelectasis versus bronchopneumonia of right lower lobe. However, patient did not have any chest pain, shortness of breath, or cough. ASSESSMENT AND PLAN: 1. Sepsis, due to suprapubic catheter associated urinary tract infection, leading to leukocytosis, lactic acidosis, and hypotension. I will continue to resuscitate him with intravenous fluids, start him on intravenous ceftriaxone, and follow up final blood culture and urine culture results. His lactic acidosis improved after intravenous fluid resuscitation. 2. Normocytic anemia, likely in the setting of metastatic cancer and poor oral intake. He is receiving 1 unit of blood transfusion and I will follow up with blood count after the 1st unit of transfusion. He may not need a 2nd unit of transfusion if his hemoglobin is more than 7 after first transfusion. 3. Hypotension. This could be in the setting of sepsis. He was also listed to be taking 4 antihypertensive medications which, according to , he was taking at home which could be contributing to it. I am holding his home hypertensive medications. DISPOSITION: I will monitor patient in PVC. Plan of care discussed with the patient and his . All of their questions have been answered. cc: Jeremias Savage MD
[2019-08-07] MEDS ORDERED: CALMOSEPTINE OINTMENT TOP PRN (22:58)
[2019-08-08] MEDS: NS 1,000 ML IV SCH ×2 (05:28→18:52)
[2019-08-08 05:59] LABS: BASO# 0.01 X1000 (0.0-0.2); BASO% 0.1 % (0.0-0.8); EOS# 0.04 X1000 (0.0-0.7); EOS% 0.3 % (0.0-10.0); HEMATOCRIT 24.3 % (42.0-52.0); HEMOGLOBIN 7.2 g/dL (14.0-18.0); IMM GRAN# 0.12 X1000 (0.0-0.04); IMM GRAN% 0.9 % (0.0-0.5); LYMPH# 2.44 X1000 (1.2-3.4); LYMPH% 18.3 % (20.5-51.1); MCH 24.9 PG (27-31); MCHC 29.6 g/dL (33-37); MCV 84.1 FL (81-99); MONO# 0.99 X1000 (0.11-0.59); MONO% 7.4 % (1.7-9.3); MPV 9.8 FL (7.4-10.4); PLT 259 X1000 (130-400); RBC 2.89 XMIL (4.7-6.1); RDW 19.5 % (11.5-14.5)
[2019-08-08 06:21] LABS: CREATININE 3.4 mg/dL (0.7-1.2); POTASSIUM 3.1 mmol/L (3.5-5.1)
[2019-08-08 06:37] LABS: CALCIUM 6.6 mg/dL (8.8-10.2)
[2019-08-08] MEDS ORDERED: CALCIUM GLUCONATE 1 GM in NS 50 ML IV ONE (06:52)
[2019-08-08] MEDS: TUMS PO SCH ×3 (08:29→16:45)
[2019-08-08] MEDS: CALMOSEPTINE OINTMENT TOP SCH ×4 (08:29→21:04)
[2019-08-08] MEDS: KLOR-CON PO SCH ×2 (08:29→11:37)
--- NOTE | 2019-08-08 10:27 | PROGRESS NOTE ---
DATE: 08/08/2019 INTERVAL HISTORY: Mr. Patel received 1 unit of blood transfusion and he had an increase in his hemoglobin though he received a lot of intravenous fluids so the increase might be a little diluted. SUBJECTIVE: He is feeling fine. His is at bedside. His hypotension has resolved. His potassium is improving. He is still hypokalemic, which is currently being repleted. His BUN and creatinine is improving. His lactic acid was normal. He denies chest pain, shortness of breath, palpitations, or cough. He denies nausea, vomiting, or abdominal pain. He still does not have any appetite. VITALS: Temperature 97.8, pulse 67, respiratory rate 17, blood pressure 105/45, saturating 94% on 1-2 nasal cannula. PHYSICAL EXAMINATION: General: Not in acute distress. HEENT: Oral cavity is moist. Chest: Right- sided chest port. Air entry bilateral equal. No wheeze or rhonchi. Mild inspiratory crackle in infrascapular region. Cardiovascular: S1, S2 normal, not tachycardic. No murmur, rub, or gallop except systolic murmur affecting second intercostal space. Abdomen: Soft, nontender. Midline scar of previous laparotomy, which is well-healed. There is a urine drainage tube coming out of right lower quadrant with clear urine. Extremities: He does not have any lower extremity edema. He is able to raise both upper and lower extremities above ground level. Neurologic: He is alert. He is hard of hearing. He is answering most questions appropriately, however, he may have some memory impairment, and his oftentimes help in the clinical encounter. LABORATORY: Decreasing leukocytosis, normocytic anemia, normal platelet count. Hypokalemia currently being repleted. Improving BUN and creatinine. Hypocalcemia, he received IV calcium and getting oral calcium. His lactic acidosis is normal. Blood culture and urine culture are in Lab. IMAGING: No new imaging. ASSESSMENT AND PLAN: 1. Sepsis due to suprapubic catheter associated complicated urinary tract infection. He had hypotension, ASHISH and pyuria on presentation. Continue intravenous ceftriaxone. Follow up final culture results. Once urine culture back, I may consider consulting Urology for change his suprapubic catheter. 2. Normocytic anemia likely in the setting of metastatic cancer and poor oral intake status post 1 unit of packed red blood cells. I will continue to monitor his hemoglobin and will transfuse with goal more than 7 g/dL. I will consider Iron studies if he did not have recently. And accordingly start on Iron therapy. 3. Hypotension likely in the setting of sepsis, poor oral intake, and he is on multiple antihypertensive medications, now resolved. I will decrease intravenous fluid rate. 4. Acute kidney injury on chronic kidney disease stage 3 likely because of hypotension and intravascular volume depletion, decrease intravenous fluid rate. DISPOSITION: I will monitor inside the hospital as I await improvement in kidney function. Plan of care discussed with patient and his . Their questions have been answered. cc: Jeremias Savage MD MTDD
[2019-08-08] MEDS: ROCEPHIN 1 GM in NS 50 ML IV SCH (13:04)
[2019-08-08] MEDS ORDERED: FERROUS SULFATE PO SCH (16:15)
[2019-08-08] MEDS: TYLENOL PO PRN (20:04)
[2019-08-09] MEDS: NS 1,000 ML IV SCH (03:33)
[2019-08-09 06:25] LABS: BASO# 0.01 X1000 (0.0-0.2); BASO% 0.1 % (0.0-0.8); EOS# 0.07 X1000 (0.0-0.7); EOS% 0.7 % (0.0-10.0); HEMATOCRIT 24.5 % (42.0-52.0); HEMOGLOBIN 7.4 g/dL (14.0-18.0); IMM GRAN# 0.11 X1000 (0.0-0.04); IMM GRAN% 1.1 % (0.0-0.5); LYMPH% 20.9 % (20.5-51.1); MCH 25.8 PG (27-31); MCHC 30.2 g/dL (33-37); MCV 85.4 FL (81-99); MONO# 0.81 X1000 (0.11-0.59); MPV 10.6 FL (7.4-10.4); NEUT# 6.97 X1000 (1.4-6.5); NEUT% 69.2 % (42.2-75.2); PLT 228 X1000 (130-400); RBC 2.87 XMIL (4.7-6.1); RDW 19.8 % (11.5-14.5); WBC 10.07 X1000 (4.8-10.8)
[2019-08-09 07:17] LABS: IRON SATURATION 23 %; TIBC 78 ug/dL; TOTAL IRON 18 ug/dL (53-167); UNBOUND IRON 60 ug/dL (112-346)
[2019-08-09 07:34] LABS: CALCIUM 7.5 mg/dL (8.8-10.2); CREATININE 2.6 mg/dL (0.7-1.2); FERRITIN 2079 ng/mL (30-400); MAGNESIUM 1.4 mg/dL (1.5-2.7); POTASSIUM 3.8 mmol/L (3.5-5.1)
[2019-08-09] MEDS: MAGNESIUM SULFATE 2 GM/S.W.I. 2 GM/50 ML IVPB IV SCH ×2 (08:33→12:45)
[2019-08-09] MEDS: MARINOL PO SCH (08:33)
[2019-08-09] MEDS: TUMS PO SCH ×3 (08:33→17:21)
[2019-08-09] MEDS: LEVAQUIN 500 MG/D5W 500 MG/100 ML IVPB IV SCH (08:33)
[2019-08-09] MEDS: CALMOSEPTINE OINTMENT TOP SCH ×4 (08:34→23:04)
--- NOTE | 2019-08-09 10:30 | PROGRESS NOTE ---
DATE: 08/09/2019 INTERVAL HISTORY: No acute events overnight. His urine culture is growing Citrobacter, which is resistant to ceftriaxone and sensitive to levofloxacin, so he has been started on levofloxacin. He did not have any hypotensive episodes. His leukocytosis has resolved. He does not have iron deficiency. SUBJECTIVE: Mr. Patel denies any complaints. Denies chest pain, shortness of breath or cough. Denies abdominal pain, nausea, or vomiting. VITAL SIGNS: Temperature 98.4 degrees, pulse 64, respiratory rate 16, blood pressure 150/50, saturating 95% room air. PHYSICAL EXAMINATION: General: Not in acute distress. HEENT: Oral cavity is moist. Lungs: Air entry bilaterally equal. No wheeze or rhonchi. Mild inspiratory crackles in infra-axillary region. Abdomen: Soft, nontender. Midline scar of previous laparotomy which is well healed. Urine drainage tube coming out on the right lower quadrant. Does not have any lower extremity edema. He is able to raise both upper and lower extremities above ground level. Neurologic: He is alert and oriented x3. He has hearing impairment. He also has some memory impairment and his helps him answer questions. LABORATORY DATA: Suggestive of resolution of leukocytosis, normocytic anemia, normal platelet count. He does have hyperchloremia, improving BUN and creatinine. His hypocalcemia is improving. Hypomagnesemia is currently being repleted. His folate level was slightly low. Blood culture has not shown any growth. Urine culture had Citrobacter, which is sensitive to levofloxacin. No new imaging today. ASSESSMENT AND PLAN: 1. Sepsis due to suprapubic catheter associated complicated urinary tract infection due to Citrobacter. He had hypotension, acute kidney injury and pyuria on presentation. Change antibiotics to intravenous levofloxacin. Blood culture has not shown any growth. I would consult Urology to see if his suprapubic catheter needs to be changed. 2. Normocytic anemia likely in the setting of metastatic cancer, poor oral intake, status post 1 packed red blood cell with appropriate rise. I will continue to monitor. He does not have iron deficiency. 3. Hypotension likely in the setting of sepsis, poor nutritional status and use of multiple antihypertensive medications, now resolved. I will stop intravenous fluids. Follow up BMP tomorrow. 4. Acute kidney injury on chronic kidney disease stage 3 because of hypotension, acute cystitis and intravascular volume depletion, now improving. I will stop intravenous fluids. Encourage oral intake. Start him on Marinol and follow up with [facility] tomorrow. 5. Disposition. Since his Citrobacter was resistant to ceftriaxone. I will start him on levofloxacin and will give him at least 48 hours of IV antibiotics. Accordingly we will consider discharging him home tomorrow. I will also consider physical therapy. Plan of care discussed with the patient and his at bedside. Their questions have been answered satisfactorily. cc: Jeremias Savage MD
--- NOTE | 2019-08-09 12:36 | CONSULTATION ---
DATE OF CONSULTATION: 08/09/2019 ATTENDING/REFERRING PHYSICIAN: Nicol. CHIEF COMPLAINT: Anemia. HISTORY OF PRESENT ILLNESS: This 83-year-old male with history of adenocarcinoma of the prostate, non-Hodgkin's lymphoma, stage T1 be adenocarcinoma of the stomach, and stage T4 urothelial cancer, was admitted with anemia and possible urinary tract infection. The patient's states his last treatment for the metastatic urothelial carcinoma was in May. He is receiving Tecentriq. The patient's states he has had significant weight loss as a result of loss of appetite. When he was at the oncologist's office, it was noted his creatinine was over 4. He has chronic renal insufficiency, and it is normally around 2 to 2.5. The patient was admitted and was well hydrated and received 1 unit of blood. The patient states he feels much better. He states he would like to go home. 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 CURRENT MEDICATIONS: Documented on the chart. PAST SURGICAL HISTORY: Radiation therapy for prostate cancer, partial gastric resection, treatment of non-Hodgkin's lymphoma, coronary artery stent placement, direct visual internal urethrotomy of urethral strictures, placement of bilateral double-J stents, placement of suprapubic tube with removal of the right double-J stent, and placement of the left double-J stent. SOCIAL HISTORY: He lives at home and is taken care of by his . There is no tobacco or alcohol use. ALLERGIES: No known drug allergies. REVIEW OF SYSTEMS: He states he feels weak all the time, but states currently he is doing much better. He has no abdominal pains, problems with diabetes, strokes, or seizures. He states the suprapubic tube is draining well. He states occasionally, he leaks around the tube. PHYSICAL EXAMINATION: General: A very thin, age-apparent, normally-developed, white male, who is oriented and cooperative. HEENT: Normal for age. Lungs: Clear. Cardiovascular: Regular rate and rhythm. Abdomen: Flat, soft, nontender. No hepatosplenomegaly or masses. Normal bowel sounds. Suprapubic tube in place in the right lower quadrant, draining well. : The penile shaft is very firm, consistent with his metastatic urothelial cancer. It has decreased in size. Both testes are down and palpably normal. Extremities: No clubbing, cyanosis, or edema. Neurologic: No focal deficits. LABORATORY DATA: This morning, has a white count of 10.07, hemoglobin of 7.4, hematocrit of 24.5, and platelets are 228,000. Serum electrolytes show sodium 145, potassium 3.8, chloride 111, bicarb 18, BUN 43, creatinine 2.6. A urinalysis at admission was consistent with an indwelling catheter, and had too numerous to count white cells, 20 to 40 red cells, 3+ bacteria. Urine culture grew Citrobacter. His PSA in 09/2018 was 0.02, which has been stable for the last 10 years. IMPRESSION: 1. Prostate cancer. 2. Stage T4 urothelial carcinoma. 3. Non-Hodgkin's lymphoma. 4. Adenocarcinoma of the stomach, stage T1b. 5. Anemia with weight loss and dehydration secondary to loss of appetite. 6. Renal insufficiency. 7. Bladder colonization. 8. Urinary tract infection. Since he is severely immunocompromised, colonization of the bladder with bacteria could lead to urosepsis. His blood cultures have been no growth for 48 hours. PLAN: Since he has made significant improvement, continue present treatment. The patient's states he needs some type of appetite stimulant. She is going to discuss this with Dr. Espinoza. Keep followup appointment as scheduled in the Urology Clinic for the suprapubic tube change in early August. Thank you for this consultation. cc: Dick Garibay MD
[2019-08-09] MEDS: TYLENOL PO PRN (21:16)
[2019-08-10 06:51] LABS: CALCIUM 7.5 mg/dL (8.8-10.2); CREATININE 2.2 mg/dL (0.7-1.2); POTASSIUM 3.5 mmol/L (3.5-5.1)
[2019-08-10 07:15] VITALS: BP 141/56
[2019-08-10] MEDS: TUMS PO SCH (08:56)
[2019-08-10] MEDS: LEVAQUIN 500 MG/D5W 500 MG/100 ML IVPB IV SCH (08:56)
[2019-08-10] MEDS: MARINOL PO SCH (08:56)
[2019-08-10] MEDS: CALMOSEPTINE OINTMENT TOP SCH (08:57)
--- NOTE | 2019-08-11 12:09 | DISCHARGE SUMMARY ---
ADMISSION DATE: 08/07/2019 DISCHARGE DATE: 08/10/2019 DISCHARGE DISPOSITION: Home. I had offered the patient's an option to go to rehab to help him get stronger. However, had refused to go to rehab and had preferred to take him home. DISCHARGE DIAGNOSES: 1. Sepsis due to suprapubic catheter associated complicated urinary tract infection due to Citrobacter. 2. Hypotension due to intravascular volume depletion, sepsis, and poor oral intake as well as use of antihypertensive drug use. 3. Acute kidney injury due to hypotension and intravascular volume depletion. 4. Normocytic anemia. 5. Acute cystitis due to Citrobacter urinary tract infection sensitive to levofloxacin. OTHER DIAGNOSES: 1. History of chronic kidney disease stage 3. 2. History of stage IV prostate cancer. 3. History of coronary artery disease. 4. History of adenocarcinoma of the stomach. 5. History of transitional cell cancer metastatic to penis. 6. History of a suprapubic catheter placement. DISCHARGE MEDICATIONS: 1. Levofloxacin 250 mg daily 5 tablets. 2. Megestrol acetate 10 mg b.i.d. 3. Calcium carbonate 500 mg b.i.d. VITALS: At the time of discharge temperature 98.2 degrees, pulse 58, respiratory rate 17, blood pressure 140/50, saturating 96% on room air. PHYSICAL EXAMINATION: General: Not in acute distress. HEENT: Oral cavity is moist. Lungs: Air entry bilaterally equal. No wheeze, rhonchi, or crackles. Cardiovascular: S1, S2 normal. Regular. No murmur, rub, or gallop. Abdomen: Soft, nontender. He has a midline scar of laparotomy and a suprapubic catheter. Extremity: No lower extremity edema. Neurologic: He was alert and oriented x3. He did have what appears to be hearing impairment and memory impairment. SIGNIFICANT LABS DURING HOSPITAL ADMISSION AND DISCHARGE: On presentation, his WBC was 15,000 which improved to 10,000 at the time of discharge. On presentation, his hemoglobin was 7.1, which was stable at 7.4 after 1 unit of blood transfusion. His platelet is 228,000. His INR is 1.17. Potassium is 3.5. On presentation, he had BUN of 71, which improved to 33 and creatinine improved from 4.5 to 2.2. His iron panel had suggested ferritin of 2000. His urinalysis had pyuria. Microbiology: Urine culture was growing Citrobacter freundii which was sensitive to levofloxacin. Blood culture did not have growth. Stool occult blood test was negative. The patient received 1 unit of blood transfusion during hospital admission significant. SIGNIFICANT IMAGING DURING HOSPITAL ADMISSION: Chest x-ray on presentation had atelectasis of right lower lobe. HOSPITAL COURSE SUMMARY: Mr. Patel is 83 years old man with past medical history of metastatic transitional cell cancer, with penile metastasis, prostate cancer, non-Hodgkin's lymphoma, gastric adenocarcinoma, chronic kidney disease stage 3, chronic indwelling suprapubic catheter, who was seeing his oncologist for a routine follow-up and was found to have profound kidney dysfunction with creatinine over 4. He also was seeing the oncologist for blood transfusion and his hemoglobin was 7.1, so he was sent to the emergency room for management of his kidney disease and blood transfusion. In the emergency room, he was found to be in sepsis with leukocytosis, tachycardia, pyuria and lactic acidosis. He was also hypotensive so patient was admitted to PVC unit for further management. The patient was started on intravenous antibiotics and he was aggressively resuscitated with intravenous fluids. His home antihypertensive medications were held. With intravenous fluids and intravenous antibiotics, his clinical condition improved. At the time of discharge, he has been off intravenous fluids for more than 12 hours and maintaining blood pressure adequately and his kidney function continues to improve. Urology team was consulted and they had recommended that the patient probably had colonization with bacteria in his catheter and had just recommended routine suprapubic catheter change in the 1st week of August. DISCHARGE INSTRUCTIONS: At the time of discharge, the patient was advised to follow up with his regular physician, oncologist. He was also advised to encourage oral intake since he had significantly decreased oral intake. The patient's was counseled about the risk of recurrent acute kidney injury due to poor oral intake. She understood it. TIME SPENT AT DISCHARGE: More than 30 minutes of time was spent in discharging the patient. All of 's questions were satisfactorily answered. cc: Jeremias Savage MD
== END 2019-08-10 11:30 | disposition home or self-care (01) | DRG 698 ==
LOC: ED 09:12 → EDIPHOLD 13:36 → 2N 20:04
PROVIDERS: ATTEND Internal Medicine

== ENCOUNTER 2019-09-19 10:56 | Inpatient (IN) ==
[2019-09-19] MEDS ORDERED: NS 1,000 ML IV ONE (12:24)
[2019-09-19] MEDS ORDERED: NS 500 ML IV ONE (12:51)
[2019-09-19 12:57] LABS: ALB/GLOB RATIO 0.5; CALCIUM 7.7 mg/dL (8.8-10.2); CREATININE 7.2 mg/dL (0.7-1.2); POTASSIUM 5.4 mmol/L (3.5-5.1); TOTAL BILIRUBIN 0.43 mg/dL (0.20-1.00); TOTAL PROTEIN 5.7 g/dL (6.3-8.3)
--- NOTE | 2019-09-19 12:57 | Diag Imaging Result Doc PS360 ---
EXAM: CHEST-PORTABLE INDICATION: SOB TECHNIQUE: One view COMPARISON: 08/07/2019 FINDINGS: There is a stable right chest port. The lungs are grossly clear. There is no discrete pleural fluid collection or pneumothorax. The cardiomediastinal silhouette and central vasculature are grossly unremarkable. IMPRESSION: No definite acute pathology by plain radiograph. Electronically signed by Mandeep Stanley 09/19/2019 12:55 PM
[2019-09-19 12:58] LABS: MAGNESIUM 1.7 mg/dL (1.5-2.7); PHOSPHORUS 7.1 mg/dL (2.7-4.5)
[2019-09-19 13:12] LABS: BASO# 0.02 X1000 (0.0-0.2); BASO% 0.1 % (0.0-0.8); EOS# 0.02 X1000 (0.0-0.7); EOS% 0.1 % (0.0-10.0); HEMOGLOBIN 12.3 g/dL (14.0-18.0); IMM GRAN# 0.37 X1000 (0.0-0.04); IMM GRAN% 1.5 % (0.0-0.5); LYMPH% 11.4 % (20.5-51.1); MCH 27.5 PG (27-31); MCHC 32.4 g/dL (33-37); MONO# 1.32 X1000 (0.11-0.59); MONO% 5.4 % (1.7-9.3); MPV 10.3 FL (7.4-10.4); NEUT# 20.13 X1000 (1.4-6.5); NEUT% 81.5 % (42.2-75.2); PLT 245 X1000 (130-400); RBC 4.47 XMIL (4.7-6.1); RDW 16.3 % (11.5-14.5); WBC 24.66 X1000 (4.8-10.8)
[2019-09-19 13:15] LABS: BANDS 4 % (0-1); LYMPHS 4 % (21-51); SEGS 92 % (42-75)
[2019-09-19 14:03] LABS: URINE SOURCE CATH
[2019-09-19] MEDS ORDERED: ROCEPHIN 1 GM in NS 50 ML IV ONE (14:13)
[2019-09-19] MEDS ORDERED: VANCOMYCIN IV PER PHARMACY MISC SCH (14:15)
[2019-09-19 14:22] LABS: BILIRUBIN URINE NEGATIVE (NEGATIVE); BLOOD URINE LARGE (NEGATIVE); COLOR ORANGE; GLUCOSE URINE NEGATIVE (NEGATIVE); KETONE URINE NEGATIVE (NEGATIVE); LEUKOCYTES URINE LARGE (NEGATIVE); NITRITE URINE NEGATIVE (NEGATIVE); PH URINE 6.5; PROTEIN URINE 200 mg/dL (NEGATIVE); SP GRAVITY URINE 1.012; TURBIDITY URINE TURBID (CLEAR); UROBILINOGEN URINE NORMAL (NORMAL)
--- NOTE | 2019-09-19 14:24 | PROVIDER DOCUMENTATION ---
This chart was entered by Blanca Flannery Scribe, acting as scribe for Irineo Brewer MD. HPI-Male Problem - General Chief Complaint: Male Stated Complaint: MALE Time Seen by Provider: 09/19/19 12:09 Source: patient, family Allergies/Adverse Reactions: Patient Allergies Allergy/AdvReac Type Severity Reaction Status Date / Time No Known Allergies Allergy Verified 08/26/19 09:55 Home Medications: Home Medication List Medication Instructions Recorded Confirmed Last Taken Type Calcium Carbonate Chew [Tums] 500 mg PO BID #30 tab.chew 08/10/19 08/26/19 08/25/19 Rx Megestrol Acetate 10 mg PO BID #10 tab 08/10/19 08/26/19 08/25/19 Rx - History of Present Illness-Male Nature of Presenting Problem: Patient is an 84 y/o male presenting to the ED Today c/o decreased urinary output. Family primarily provides history. Family states that they have noticed the patient has had decreased urinary output from his suprapubic catheter over the last few days. Family reports he has also been having swelling in all 4 extremities but worse on right side over the last 2 weeks. Patient has known kary dder cancer. Family states that patient has decreased kidney function as well. Patient denies pain. Patient denies all other signs/symptoms. Quality of Pain: reports: none Onset/Duration: reports: gradual Timing: reports: getting worse Urinary Symptoms: reports: other (decreased urine output; edema in extremities) Associated Symptoms: reports: none Associated Symptoms: reports: denies symptoms Similar Symptoms Previously?: No Recently seen or treated by another doctor?: No Review of Systems - Adult - REVIEW OF SYSTEMS - ADULT ROS:: ROS per family Constitutional: denies: chills, fever Eyes: reports: no symptoms reported Ears, Nose, Mouth & Throat: reports: no symptoms reported Cardiovascular: reports: edema (all 4 extremities - worse on right side). denies: chest pain Respiratory: denies: cough, dyspnea on exertion, shortness of breath Gastrointestinal: denies: abdominal pain, diarrhea, nausea, vomiting Genitourinary: reports: other (decreased urine output) Musculoskeletal: reports: no symptoms reported Integumentary: reports: no symptoms reported Neurological: reports: no symptoms reported Psychiatric: reports: no symptoms reported Endocrine: reports: no symptoms reported Hematologic/Lymphatic: reports: no symptoms reported Allergic/Immunologic: reports: no symptoms reported All Other Systems: Reviewed and Negative Past History - Adult - PAST MEDICAL HISTORY-ADULT Review of Records: reports: Old Records Reviewed, Nursing Assessment Review, Medications Reviewed, Social history reviewed & non-contributory. Major Childhood Illnesses: reports: denies history Cardiovascular: reports: HTN, hyperlipidemia Respiratory: reports: denies history Gastrointestinal: reports: cancer (bladder) Obstetrical/Gynecological: reports: denies history Genitourinary: reports: retention, prostate cancer, other (hematuria) Musculoskeletal: reports: denies history Neurological: reports: denies history Endocrine/Immune: reports: denies history Other Conditions: reports: denies history - PRIOR SURGERIES/PROCEDURES Surgical/Procedure History: reports: other (cystoscopy, TURP) - PRIOR HOSPITALIZATIONS Prior Hospitalizations: reports: none - IMMUNIZATION STATUS Childhood Immunizations: See Nurse Assessment Flu Vaccine: See Nurse Assessment - FAMILY HISTORY Family History: reviewed, not pertinent Physical Exam-General - PHYSICAL EXAM-ADULT Initial Vital Signs Reviewed: Yes - CONSTITUTIONAL General Appearance: alert, no apparent distress - EYES Eyes: PERRL/EOMI, pink conjunctivae - HEAD, EARS, NOSE, MOUTH & THROAT HENMT: normocephalic/atraumatic, other (dry mucous membranes) - NECK Neck: full range of motion - RESPIRATORY Respiratory: lungs clear, normal breath sounds, no respiratory distress, no accessory muscle use - CARDIOVASCULAR Cardiovascular: normal peripheral pulses, regular rate, rhythm - CHEST (BREASTS) Chest/Breast: other (port in right upper chest) - GASTROINTESTINAL (ABDOMEN) Abdominal Exam: non tender, soft - GENITOURINARY Male Genitalia: other (10 [place] [address]ub[address] catheter in place with no distension) - LYMPHATIC Lymphatic: no adenopathy - MUSCULOSKELETAL Back Exam: normal inspection Extremity: normal range of motion, normal gait, normal inspection, other (4+ d oughy edema in right upper and right lower extremities, 1+ edema in left upper extremity; wearing compression stocking on right upper extremity) - SKIN Integumentary: normal color, normal turgor, warm/dry - NEUROLOGIC Neurologic: grossly normal, no motor/sensory deficits - PSYCHIATRIC Psych/Mental Status: normal mood/affect, normal thought content, normal thought process Progress - PLAN OF CARE/RESULTS Progress/Plan/Lab Results: Vital Signs - 8 hr 09/19/19 11:15 Temperature 98.1 F Pulse Rate 77 Respiratory Rate 18 Blood Pressure 112/60 O2 Sat by Pulse Oximetry 98 Laboratory Results - last 24 hr 09/19/19 09/19/19 09/19/19 12:20 12:20 12:20 WBC 24.66 H RBC 4.47 L Hgb 12.3 L Hct 38.0 L MCV 85.0 MCH 27.5 MCHC 32.4 L RDW Std Deviation 16.3 H Plt Count 245 MPV 10.3 Immature Gran % (Auto) 1.5 H Neut % (Auto) 81.5 H Lymph % (Auto) 11.4 L Rhea % (Auto) 5.4 Eos % (Auto) 0.1 Baso % (Auto) 0.1 Immature Gran # (Auto) 0.37 H Neut # (Auto) 20.13 H Lymph # (Auto) 2.80 Rhea # (Auto) 1.32 H Eos # (Auto) 0.02 Baso # (Auto) 0.02 Segmented Neutrophils 92 H Band Neutrophils 4 H Lymphocytes 4 L Large Platelets Sodium 126 L Potassium 5.4 H Chloride 92 L Carbon Dioxide 14 L Anion Gap 20 BUN 78 H Creatinine 7.2 H Estimated GFR/1.73 m2 7 BUN/Creatinine Ratio 11 Glucose 98 Calculated Osmolality 277 Calcium 7.7 L Phosphorus Magnesium Total Bilirubin 0.43 AST 10 ALT 5 L Alkaline Phosphatase 265 H Troponin T High Sens Xyo-S-Yahybzjrnhk Pept Total Protein 5.7 L Albumin 2.0 L Globulin 3.7 Albumin/Globulin Ratio 0.5 TSH 9.01 H Urine Source Urine Color Urine Turbidity Urine pH Ur Specific [place] Urine Protein Ur Glucose (Stick) Ur Ketones (Stick) Urine Blood Urine Nitrite Urine Bilirubin Urobilinogen Dipstick Urine Leukocytes 09/19/19 09/19/19 09/19/19 12:20 12:20 12:20 WBC RBC Hgb Hct MCV MCH MCHC RDW Std Deviation Plt Count MPV Immature Gran % (Auto) Neut % (Auto) Lymph % (Auto) Rhea % (Auto) Eos % (Auto) Baso % (Auto) Immature Gran # (Auto) Neut # (Auto) Lymph # (Auto) Rhea # (Auto) Eos # (Auto) Baso # (Auto) Segmented Neutrophils Band Neutrophils Lymphocytes Large Platelets Sodium Potassium Chloride Carbon Dioxide Anion Gap BUN Creatinine Estimated GFR/1.73 m2 BUN/Creatinine Ratio Glucose Calculated Osmolality Calcium Phosphorus 7.1 H Magnesium 1.7 Total Bilirubin AST ALT Alkaline Phosphatase Troponin T High Sens 167 H* Wll-X-Fpzwudiwgtp Pept > 45866 H Total Protein Albumin Globulin Albumin/Globulin Ratio TSH Urine Source Urine Color Urine Turbidity Urine pH Ur Specific [place] Urine Protein Ur Glucose (Stick) Ur Ketones (Stick) Urine Blood Urine Nitrite Urine Bilirubin Urobilinogen Dipstick Urine Leukocytes 09/19/19 13:46 WBC RBC Hgb Hct MCV MCH MCHC RDW Std Deviation Plt Count MPV Immature Gran % (Auto) Neut % (Auto) Lymph % (Auto) Rhea % (Auto) Eos % (Auto) Baso % (Auto) Immature Gran # (Auto) Neut # (Auto) Lymph # (Auto) Rhea # (Auto) Eos # (Auto) Baso # (Auto) Segmented Neutrophils Band Neutrophils Lymphocytes Large Platelets Sodium Potassium Chloride Carbon Dioxide Anion Gap BUN Creatinine Estimated GFR/1.73 m2 BUN/Creatinine Ratio Glucose Calculated Osmolality Calcium Phosphorus Magnesium Total Bilirubin AST ALT Alkaline Phosphatase Troponin T High Sens Aez-W-Hfmbhithmls Pept Total Protein Albumin Globulin Albumin/Globulin Ratio TSH Urine Source CATH Urine Color ORANGE Urine Turbidity TURBID Urine pH 6.5 Ur Specific [place] 1.012 Urine Protein 200 A Ur Glucose (Stick) NEGATIVE Ur Ketones (Stick) NEGATIVE Urine Blood LARGE A Urine Nitrite NEGATIVE Urine Bilirubin NEGATIVE Urobilinogen Dipstick NORMAL Urine Leukocytes LARGE A Orders Category Date Time Status Bladder Scan and Record Result ORDERED Care 09/19/19 12:24 Active Nursing- Obtain EKG once Care 09/19/19 12:25 Active Resuscitation Status Routine Care 09/19/19 14:22 Ordered Saline Loc NOW Care 09/19/19 12:24 Active CHEST-PORTABLE [RAD] Stat Exams 09/19/19 12:[address] ABDOMEN/PELVIS W/O CONTRAST [CT] Stat Exams 09/19/19 12:24 Taken CBC WITH DIFF [HEME] Stat Lab 09/19/19 12:20 Completed CMP [COMPREHENSIVE METABOLIC PANEL] [CHEM] Stat Lab 09/19/19 12:20 Completed MAGNESIUM [CHEM] Stat Lab 09/19/19 12:20 Completed PRO B-NATRIURETIC PEPTIDE Stat Lab 09/19/19 12:20 Completed TROPONIN T HIGH SENSITIVITY Stat Lab 09/19/19 12:20 Completed TSH Stat Lab 09/19/19 12:20 Completed URINALYSIS W/POSS RFLX CULT [URINALYSIS] Stat Lab 09/19/19 13:46 Results phos [PHOSPHORUS] [CHEM] Stat Lab 09/19/19 12:20 Completed 0.9% Sodium Chloride Inj [Ns] 1,000 ml Med 09/19/19 12:24 Active IV 75 mls/hr 0.9% Sodium Chloride Inj [Ns] 500 ml Med 09/19/19 12:51 Discontinued IV 999 mls/hr CefTRIAXONE [Rocephin] 1 gm Med 09/19/19 14:13 Active 0.9% Sodium Chloride Inj [Ns] 50 ml IV NOW Pharmacy Order [Vancomycin IV Per Pharmacy] Med 09/19/19 14:15 Ordered 1 each MISC DIRECTED EKG [EKG] Stat Ther 09/19/19 12:25 Ordered Result Diagrams: 09/19/19 12:20 09/19/19 12:20 - REASSESSMENT Reassessment #1 Time Reassessed: 14:15 Status: unchanged (Patient's condition remains unchanged. Discussed lab findings with patient and family who elect to make patient a DNR.) - EKG 1 Time of EKG reading by physician:: 12:56 EKG Read and Signed by:: Irineo Brewer EKG Interpretation (*Must complete 3 of following elements*): Abnormal Rate: 68 Rhythm: Sinus rhythm QRS: other (old anterior wave myocardial infarction) Comments: peak T-wave, No stemi, artifact present - XRAY 1 XRAY Study: Chest Impression: See EMR Report (EXAM: CHEST-PORTABLE INDICATION: SOB TECHNIQUE: One view COMPARISON: 08/07/2019 FINDINGS: There is a stable right chest port. The lungs are grossly clear. There is no discrete pleural fluid collection or pneumothorax. The cardiomediastinal silhouette and central vasculature are grossly unremarkable. IMPRESSION: No definite acute pathology by plain radiograph. Electronically signed by Mandeep Stanley 09/19/2019 12:55 PM 09/19/19 1255 Interpreting Physician: Mandeep Stanley MD Dictated Date/Time: 09/19/19 1253 cc: Irineo Brewer MD; Floyd Green) - CONSULTS/PCP/HOSPITALIST Notification #1 *Consult/PCP/Hospitalist*: Vitor LIZ, Hospitalist Time Discussed: 14:19 Consult Disposition: Admit Departure - Departure Date of Disposition Decision: 09/19/19 Time of Disposition Decision: 14:23 DIAGNOSIS: Complicated UTI (urinary tract infection), Do not resuscitate status Acute renal failure (ARF) Qualifiers: Acute renal failure type: with acute tubular necrosis Qualified Code(s): N17.0 - Acute kidney failure with tubular necrosis Cancer of bladder Qualifiers: Bladder location: overlapping sites Qualified Code(s): C67.8 - Malignant neoplasm of overlapping sites of bladder Disposition: ADMITTED INPATIENT 09 Certified Medical Emergency: Emergent Condition: Critical Referrals and Follow-Ups: Floyd Green [Primary Care Provider] - - Critical Care Note This patient required my direct & personal management of CC.: Yes Total Time (mins): 35 Critical Care Statement: This patient required my direct personal management to treat or rule out processes, the absence of which, could potentiallly result in sudden, clinically significant life or limb threatening deterioration. Attestation - Physician/ LIBERTAD Attestation Patient care was provided by Advanced Practice Provider:: No The physician spent face to face time with patient:: Yes Advanced Practice Provider documentation review:: Supervising physician onsite and consulted in the evaluation and care of this patient. The physician did have a face to face encounter with the patient. This chart was documented by the indicated scribe, (Blanca Flannery, Sergey) and accurately reflects the services I performed and decisions made by me, Irineo Brewer MD, as attested by the provider's signature.
[2019-09-19 14:45] LABS: UR EPITHELIAL CELLS <10 /HPF (<10); URINE BACTERIA NEGATIVE /HPF; URINE RBC TNTC /HPF (<10); URINE WBC TNTC /HPF (<10)
--- NOTE | 2019-09-19 14:53 | Diag Imaging Result Doc PS360 ---
EXAM: CT ABDOMEN/PELVIS W/O CONTRAST INDICATION: abd pain, acute kidney injury TECHNIQUE: This exam was performed using automated exposure control, adjustment of mA or kV according to patient size, and/or use of iterative reconstruction technique. COMPARISON: CT pelvis dated 08/26/[address] abdomen and pelvis dated 08/14/2019 FINDINGS: There is a small right pleural effusion and a small to moderate-sized left effusion. There is adjacent atelectasis bilaterally. The gallbladder is distended. There is no pericholecystic inflammatory change and no evidence of wall thickening. The liver and spleen are essentially unremarkable. The pancreas is markedly atrophic and is grossly unremarkable, otherwise. The adrenal glands appear normal. There is a left ureteral stent. The distal tip of the stent is in the expected position in the lumen of the urinary bladder. However, the stent travels superiorly and is looped at the UPJ. The stent then travels back distally. The distal tip is in the distal ureter. However, note that this positioning is stable as compared to the previous studies. Since the prior abdominal CT, there has been development of moderate to advanced left hydronephrosis. There is also right hydroureteronephrosis. However, it is stable on the right. There is a suprapubic catheter to the right of midline. The tip is in the expected position in the lumen of the urinary bladder. The bladder is nondistended. There is extensive pelvic stranding suggesting edema and fibrosis that is stable. There is extensive uncomplicated sigmoid colonic diverticulosis. There has been prior gastric surgery. There is also a surgical staple line associated with a loop of small bowel in the upper abdomen. Although there are a few loops of somewhat distended small bowel adjacent to the anastomosis. There is nothing that would necessarily indicate obstruction. There is body wall anasarca, especially at the pelvis. At the hips and pelvis have a somewhat moth-eaten appearance. Metastatic disease cannot be excluded. However, it is stable. IMPRESSION: 1.Interval development of hydronephrosis on the left. 2.Small right effusion and small to moderate-sized left effusion. 3.Otherwise, the abdomen and pelvis are essentially stable as compared to the previous studies. Electronically signed by Mandeep Stanley 09/19/2019 2:51 PM
[2019-09-19] MEDS ORDERED: ZOFRAN IV PRN (15:16)
[2019-09-19 15:32] LABS: UR CREAT RANDOM 40.4 mg/dL (14-26)
[2019-09-19] MEDS ORDERED: VANCOMYCIN 1 GM/NS 1 GM/250 ML IVPB IV SCH ×2 (16:00→17:00)
[2019-09-19] MEDS ORDERED: ALBUMIN 25% IV ONE (16:34)
[2019-09-19] MEDS: NS 1,000 ML IV SCH (17:26)
[2019-09-19] MEDS: MAXIPIME 1 GM in NS 50 ML IV SCH (17:26)
--- NOTE | 2019-09-19 17:57 | EKG Report ---
Test Performed on : 09/19/2019 12:52:11 PM Test Reason : swelling Blood Pressure : / mmHG Vent. Rate : 068 BPM Atrial Rate : 068 BPM P-R Int : 124 ms QRS Dur : 078 ms QT Int : 414 ms P-R-T Axes : 032 001 044 degrees QTc Int : 440 ms Sinus rhythm. with premature supraventricular complexes. Cannot rule out Inferior infarct , age undetermined Abnormal ECG When compared with ECG of 27-APR-2019 01:03, premature supraventricular complexes. are now present Minimal criteria for Inferior infarct are now present T wave inversion no longer evident in Anterior leads Unconfirmed Result
--- NOTE | 2019-09-19 19:22 | HISTORY AND PHYSICAL ---
PRIMARY CARE PROVIDER: Dr. Floyd Green. CHIEF COMPLAINT: Decreased urine output and swelling in the extremities, along with confusion. HISTORY OF PRESENT ILLNESS: Mr. Jon Patel is an 84-year-old, male, with a medical history of bladder cancer, who is here with complaints of increasing swelling in the lower extremities and in the arms, specifically the right arm. He has had more altered mentation along with generalized weakness, and then over the last 24 hours, he has had decrease in his urine output almost to nothing. Further questioning about the cancer, his last treatment was April 24, and they decided not to have anymore treatments. He is currently a do not resuscitate level 1. Findings here reveal that he is oliguric. He has acute kidney injury on CKD, urinary tract infection, and protein-calorie malnutrition with a bit of anasarca. We will admit him for further treatment and evaluation. PAST MEDICAL HISTORY: 1. Coronary artery disease with history of cardiac stent. 2. Erectile dysfunction. 3. History of gastric cancer with resection and radiation and chemotherapy in 2007. 4. Prostate cancer, Madelin 3 to 4, with radiation in 2001. 5. Hypertension. 6. Fossa navicularis. 7. Proximal bulbar strictures. 8. Urinary retention with suprapubic catheter that has to be placed by Interventional Radiology. 9. Bladder cancer, was receiving immunotherapy with Dr. Espinoza every 2 weeks, but his last treatment was 04/24/2019. 10. CKD stage 3. SURGICAL HISTORY: 1. Numerous cystoscopies. 2. Surgery for clot evacuation. 3. Partial gastrectomy, Billroth I. 4. Radiation of prostate cancer. 5. Right subclavian port placement. SOCIAL HISTORY: Occasionally smoked when he was in his 30s, but then quit. No alcohol. No illicit drug use. , lives with his . FAMILY HISTORY: Mother and father both lived to their 90s, otherwise healthy, and of old age. ALLERGIES: No known drug allergies. HOME MEDICATIONS: Not yet reconciled. REVIEW OF SYSTEMS: He denies pain. A 14-point review of systems is complete and all are negative, except for those mentioned above in HPI. PHYSICAL EXAMINATION: VITAL SIGNS: Temperature 98.1 degrees, heart rate 77, respiratory rate 18, blood pressure 112/60, O2 saturation 98% on room air, 5 feet 3 inches tall, 125 pounds, BMI is 22.1. GENERAL: Mr. Jon Patel is an 84-year-old, male. He is drowsy. He is able to wake up and talk a little bit. HEENT: Atraumatic, normocephalic. Pupils equal, round, reactive to light. Extraocular movements intact. Mucous membranes are dry. NECK: Trachea midline. CARDIOVASCULAR: S1, S2. Regular rate and rhythm. No rubs, gallops, murmurs. He has 1 to 2+ lower extremity pitting edema, 1 to 2+ pitting edema in the upper extremities. Negative for JVD or carotid bruits. PULMONARY: Clear to auscultate bilateral breath sounds. No accessory muscle use or work of breathing noted. GASTROINTESTINAL: Soft, nontender, nondistended. Positive bowel sounds x4. EXTREMITIES: Decreased range of motion, decreased strength. GENITOURINARY: Suprapubic catheter in place. This is a very small catheter that was placed through Interventional Radiology and it is coming up due to be changed. NEUROLOGIC: Oriented x2, to name and place. Follows commands. Sensory is intact. SKIN: Warm, dry, intact. Suprapubic site clean and dry. LABORATORY DATA: White blood cells 24,000, hemoglobin 12, hematocrit 38, platelet count 245,000. Sodium 126, potassium 5.4, BUN 78, creatinine 7.2, glucose 98, calcium 7.7, phosphorus 7.1, magnesium 1.7, bilirubin 0.48, AST 10, ALT 5. Troponin is 167. ProBNP is greater than 35,000. Albumin is 2.0. Lactate 1.9. TSH 9.01. Urinalysis: 200 protein, large blood, large leukocytes, bdh-khwjvlwa-vj-count white blood cells, zjp-rhcktglo-xa-count red blood cells. Random creatinine is 40.4, random urine sodium is 100, and random urine urea is 135. IMAGIN. Abdominal and pelvic CT: Interval development of hydronephrosis on the left. Small right effusion. Snudq-hl-hhmzczio sized left effusion. There is also a right hydroureteronephrosis. 2. Chest x-ray: No acute findings. ASSESSMENT AND PLAN: 1. Acute kidney injury on chronic kidney disease stage 3, with suprapubic catheter. Nearly anuric and he is definitely oliguric with hydronephrosis. We will consult Dr. Garibay and Dr. Stapleton. Urine studies ordered. 2. Urinary tract infection. Most likely it is chronic, but he does have a history of having Citrobacter in the urine once in June and again in July, just this last month, with multiple resistances. Resistance to cefazolin, ceftazidime, ceftriaxone, and Zosyn. So, cefepime has been added along with levofloxacin for IV antibiotic coverage. 3. Protein-calorie malnutrition with hypoalbuminemia. He will receive some albumin. He has the edema going on in the extremities and in the abdominal wall. 4. Hyponatremia. He will receive 1 L of saline. 5. Deep venous thrombosis prophylaxis. SCDs. Dictated by SHALONDA Delvalle for Naif Galvan MD cc: SHALONDA Delvalle MD
--- NOTE | 2019-09-19 19:33 | CONSULTATION ---
DATE OF CONSULTATION: 09/19/2019 ATTENDING AND REFERRING PHYSICIAN: Aydenist. 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 He also has a history of prostate cancer, non-Hodgkin lymphoma and stage T1b adenocarcinoma of the stomach. The patient has a indwelling left double-J stent and a suprapubic tube. The patient was admitted with a several week history of decreasing urine output from his suprapubic tube as well as edema of all 4 extremities. The patient was noted to have a creatinine of 7 today, his baseline is about 2. 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 CURRENT MEDICATIONS: Documented on the chart. PAST SURGICAL HISTORY: Radiation therapy for prostate cancer, partial gastric resection, treatment of non-Hodgkin lymphoma, coronary artery stent placement, direct visual internal urethrotomy of urethral strictures, placement of bilateral double-J stents, placement of a suprapubic tube with removal of right double-J stent and replacement of a left double-J stent. SOCIAL HISTORY: He lives at home and is taken care of by his family. No tobacco or alcohol use. ALLERGIES: No known drug allergies. REVIEW OF SYSTEMS: The patient states he feels fine. His states he is somewhat confused. He specifically states no abdominal pain, no pelvic area pain, no history of diabetes, strokes, or seizures. PHYSICAL EXAMINATION: General: A very thin, age apparent, normally developed, white male, who is cooperative. HEENT: Normal for age. Lungs: Clear. Cardiovascular: Regular rate and rhythm. Abdomen: Flat, soft, nontender. No hepatosplenomegaly or masses. Normal bowel sounds. Suprapubic tube in place just to the right of midline. There is some urine draining. : The penile shaft is very firm with multiple nodules in the corpora cavernosa. This is consistent with his metastatic urothelial cancer. Both testes are down and somewhat small, otherwise normal. Extremities: Plus 2 to 3 pitting edema of the lower extremities, +2 of the upper extremities. Neurologic: No focal deficits. LABORATORY EVALUATION: Has a white count of 24.66, hemoglobin of 12.3, hematocrit of 38 and platelets are 245,000. His sodium is 126, potassium 5.4, chloride 92, bicarb 14, BUN 78, creatinine 7.2. Urinalysis has too numerous to count white cells, too numerous to count red cells taken from the suprapubic tube. The urine bacteria dipstick was negative. IMPRESSION: 1. Renal failure probably due to increased bilateral ureteral obstruction due to urothelial cancer. 2. 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 3. Non-Hodgkin lymphoma. 4. Adenocarcinoma of the stomach stage T1b. 5. Prostate cancer status post radiation therapy. RECOMMEND: Discussed with patient and family continued observation (basically hospice) or have bilateral percutaneous nephrostomy tubes placed. They would like the percutaneous tubes placed. The planned procedure, benefits versus risks and possible complications including but not limited to bleeding, infection, not changing the renal function, was discussed. They seemed to understand and desired to proceed. Discussed this would be done by the invasive radiologist on Saturday. Thank you for this consultation. cc: Dick Garibay MD [facility]
--- NOTE | 2019-09-19 19:53 | HISTORY AND PHYSICAL ---
ADDENDUM: HISTORY OF PRESENT ILLNESS: I have seen and examined Mr. Patel today in the emergency room. The daughter and the were both at the bedside. The daughter who gives the history tells me that Mr. Patel has been having some generalized swelling. However, that was being taken care of by the primary care. Unfortunately, lately Mr. Patel has been sleepy, very confused, and with generalized weakness. He was brought into the emergency room where he has been evaluated and recommended to be admitted. Briefly, Mr. Patel is an 84-year-old gentleman with a remote history of stomach gastric cancer status post resection and adjuvant therapy (chemo and radiation). He also had prostate cancer status post a lot of radiation therapy. Subsequently, he has been diagnosed with urothelial bladder cancer where he follows up with Dr. Espinoza. I am told that Mr. Patel has had multiple issues with his pelvis due to radiation therapy. 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 He has ended up having to have a suprapubic catheter which is changed every month. He has had a stent placed in the left ureter. According to daughter, they actually tried putting it in both ureters. However, only the left could successfully be done. CURRENT PHYSICAL EXAMINATION: Extremities: Positive for generalized swelling, especially in the lower extremities. It seems like the right lower extremity is more swollen than the left. There is edema on both hips to the lower lateral aspect of the abdomen. heent: However, the tongue looks remarkably dry. The mucous membranes are also dry. abdomen: He has a suprapubic catheter in place. CENTRAL NERVOUS SYSTEM: He is quite drowsy, but he is easily arousable and will follow commands and sustain a reasonable conversation. LABORATORY DATA: Has been reviewed. WBC is 24.66. The patient has 4% of bands in the peripheral smear. The chemistry is extremely abnormal with a sodium of 136, potassium of 5.4. Creatinine is up to 7.2. The patient had a creatinine just on August 26 and it was 2.0. The urinalysis looks remarkably abnormal. The urine sodium is actually above 100. IMAGING STUDIES: A CT scan of the abdomen and pelvis without contrast shows an interval development of hydronephrosis on the left. There is also hydronephrosis on the right as well. There is some effusion noted. ASSESSMENT: 1. Generalized weakness with altered mental status most likely due to underlying infection. 2. Bilateral hydronephrosis, worse on the left. The patient has a stent in the left. However, he still continues to develop hydronephrosis. He has been started on broad-spectrum IV antibiotics. He had a previous urine culture which was positive for Citrobacter freundii. This has been covered. 3. Acute on chronic renal failure, presumably obstructive uropathy. We have consulted Urology. 4. Fluid overload. Obviously, Mr. Patel has edema in the lower extremities up to even the thighs. However, he still looks remarkably dry on the mucous membranes. I think he is remarkably third-spacing. His albumin is remarkably low. I think he has poor nutritional status. We are going to give him some albumin. We will also continue with the gentle IV fluids overnight to at least ensure that the intravascular volume is adequate. Hopefully, once that is fully resuscitated, we might need to use Lasix at some point. 5. Abnormal thyroid function test. We are going to check a free T4 to see where the disease process lies. Please refer to the details of the history and physical that have been dictated by the MARKET RESEARCH WORKER. I have discussed the plan with her. I have also reviewed my findings and discussed the plan with the family as well as with the patient. cc: Naif Galvan MD
[2019-09-19] MEDS: LEVAQUIN 250 MG/D5W 250 MG/50 ML IVPB IV SCH (22:08)
[2019-09-20] MEDS: MAXIPIME 1 GM in NS 50 ML IV SCH ×2 (04:23→16:21)
[2019-09-20] MEDS: NS 1,000 ML IV SCH (04:24)
[2019-09-20 08:58] LABS: ESTIMATED GFR 7
[2019-09-20 09:02] LABS: BASO# 0.02 X1000 (0.0-0.2); BASO% 0.1 % (0.0-0.8); EOS# 0.03 X1000 (0.0-0.7); EOS% 0.1 % (0.0-10.0); HEMATOCRIT 33.9 % (42.0-52.0); HEMOGLOBIN 10.8 g/dL (14.0-18.0); IMM GRAN# 0.22 X1000 (0.0-0.04); IMM GRAN% 1.1 % (0.0-0.5); LYMPH# 2.46 X1000 (1.2-3.4); LYMPH% 11.9 % (20.5-51.1); MCH 27.1 PG (27-31); MCHC 31.9 g/dL (33-37); MCV 85.2 FL (81-99); MONO# 1.07 X1000 (0.11-0.59); MONO% 5.2 % (1.7-9.3); MPV 8.9 FL (7.4-10.4); NEUT# 16.87 X1000 (1.4-6.5); NEUT% 81.6 % (42.2-75.2); PLT 385 X1000 (130-400); RBC 3.98 XMIL (4.7-6.1); RDW 16.3 % (11.5-14.5); WBC 20.67 X1000 (4.8-10.8)
[2019-09-20 09:07] LABS: AGAP 21; ALB/GLOB RATIO 0.8; ALBUMIN 2.1 g/dL (3.5-5.0); ALKALINE PHOSPHATASE 175 U/L (32-122); BUN 83 mg/dL (8-22); CALCIUM 7.5 mg/dL (8.8-10.2); CHLORIDE 101 mmol/L (98-107); COSMO 290; CREATININE 7.2 mg/dL (0.7-1.2); GLUCOSE 80 mg/dL (70-104); GOT 6 U/L (10-34); GPT < 5 U/L (10-44); MAGNESIUM 1.6 mg/dL (1.5-2.7); POTASSIUM 5.5 mmol/L (3.5-5.1); SODIUM 133 mmol/L (136-145); TCO2 11 mmol/L (25-35); TOTAL BILIRUBIN 0.37 mg/dL (0.20-1.00); TOTAL PROTEIN 4.8 g/dL (6.3-8.3)
[2019-09-20] MEDS ORDERED: LASIX IV ONE (09:26)
[2019-09-20] MEDS ORDERED: KAYEXALATE PO ONE (09:27)
[2019-09-20] MEDS ORDERED: ALBUTEROL 0.5% INH CONC FOR HYPERKALEMIA INH ONE (09:27)
[2019-09-20] MEDS: TYLENOL PO PRN ×2 (10:08→16:21)
--- NOTE | 2019-09-20 10:14 | PROGRESS NOTE ---
DATE: 09/20/2019 SUBJECTIVE: This morning, Mr. Patel refers to be doing well. He denies any new complaints. He said he feels a little stronger today. OBJECTIVE: Vital Signs: Blood pressure is 173/59, pulse of 69, respirations 16, temperature is 98.1 degrees, the patient is saturating 93-92% on room air. General Examination: Mr. Patel is an 84-year-old, elderly, male. He is in bed. He is not in any cardiopulmonary distress. HEENT: Mucosa is pink and moist. Chest: Air entry is bilaterally reduced. There are some crackles in the posterior lung steele. Cardiovascular: Regular rate and rhythm. There are no murmurs, no rubs, no gallops. GI: Abdomen is soft. It is minimally distended, especially in the lower abdomen, with edema. There is a suprapubic catheter in place. GUEST SERVICES LEAD: The patient is awake, alert, and more conversational this morning. There is no focal deficit. Is and Os: Urine output only documented 30. Imaging Studies: Yesterday, chest x-ray did show no definite pathology. ASSESSMENT: 1. Bilateral hydronephrosis, worse on the left. The patient has been evaluated by urology and there is a plan for a CT-guided nephrostomy tube placement tomorrow. 2. Acute on chronic renal failure, presumably obstructive uropathy. 3. Fluid overload. The patient looks more edematous this morning. We are going to discontinue the intravenous fluids. We are going to give the patient albumin with Lasix this morning. 4. Subclinical hypothyroidism with TSH less than 10. We will continue to observe. 5. Generalized weakness and physical deconditioning. 6. Altered mental status on presentation, presumably global encephalopathy. Etiology could include infectious encephalopathy and metabolic encephalopathy. The patient's mentation this morning is a lot better. 7. History of advanced urothelial bladder carcinoma. The patient is under treatment with Dr. Espinoza. 8. Previous history of stomach adenocarcinoma and prostate cancer. 9. Hyperkalemia. We will give the patient Kayexalate and albuterol nebulizers, and recheck on his potassium. PLAN: I general, I think Mr. Patel looks a lot more alert and he looks, for the most part, more hydrated this morning. He is edematous so we have discontinue his IV fluids. We are going to give the patient albumin with Lasix. He has been evaluated by urology and the recommendation is to go ahead with nephrostomy tube placement. This will be done tomorrow by intervention radiology. also put hyperkalemia. cc: Naif Galvan MD
[2019-09-20 10:25] LABS: BANDS 2 % (0-1); LYMPHS 8 % (21-51); MONO 3 % (1-9); SEGS 86 % (42-75)
[2019-09-20] MEDS: ALBUMIN 25% IV SCH (11:13)
--- NOTE | 2019-09-20 13:07 | NEPHROLOGY CONSULTATION ---
DATE: 09/20/2019 REASON FOR ADMISSION: Decreased urine output. Increasing edema. Increased confusion. REASON FOR CONSULTATION: Acute on chronic kidney disease. 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 The patient is followed with Urology and currently has indwelling left double-J stents and a suprapubic tube. The patient was last in the hospital in August. At that time his creatinine was 2. The family states that over the last 2 or 3 days he had a sudden decrease in his urine output along with increase in swelling and confusion. He was brought into the emergency room for evaluation and was found to have increased bilateral urethral obstruction due to his urothelial cancer. He has already been evaluated by Urology and he has plans for Interventional Radiology to place bilateral nephrostomy tubes in the morning. The patient has been able to eat today. He denies any nausea and vomiting. He does have edema and he does have some confusion on conversation. His family is at the bedside and assists with his history. PAST MEDICAL HISTORY: 1. Hypertension 2. CKD stage 3 to 4 with a baseline creatinine of 2. 3. History of urothelial cancer as noted above. 4. Gastric cancer. 5. Prostate cancer. 6. Fossa navicularis proximal bulbar strictures. 7. Bladder cancer, continues with immunotherapy last treatment was in April of this past year. SURGICAL HISTORY: He has had numerous cystoscopies, clot evacuation, partial gastrectomy, radiation of prostate cancer. He has a right Port-A-Cath. He has bilateral double-J stent placements by placement of suprapubic tube. ALLERGIES: None. HOME MEDICATION: Megace, calcium carbonate, Bystolic, Benicar, alprazolam. FAMILY HISTORY: Noncontributory. SOCIAL HISTORY: He lives at home with his and daughter. No ETOH, tobacco or illicit drug use. He has not smoked in over 50 years. REVIEW OF SYSTEMS: Pertinent positives noted above in HPI. PHYSICAL EXAMINATION: Vital Signs: Temperature 98.1 degrees, pulse 69, respiratory rate 16, blood pressure 173/59. Intake 1.5 L. Output 30 mL. General: This is a chronically ill- appearing, elderly gentleman resting in bed. He is awake and alert. Occasional confusion but does assist with exam. HEENT: Normocephalic, atraumatic. His conjunctivae are pink. His oral mucosa is moist. Neck: Supple. Trachea midline. Cardiovascular: Regular rate and rhythm without murmur. Pulmonary: He is clear bilaterally. He has no increased work of breathing. Abdomen: Soft, positive bowel sounds. : He has a suprapubic catheter with clear yellow urine. Extremities: He has significant dependent edema to the upper extremities along with dependent edema pedally and some trace to 1+ pretibial edema. Integumentary: Skin is warm and dry. Neuro: To person and place. LAB DATA: Today's labs are pending. Labs last night; WBC of 24.6, hemoglobin 12.3, sodium 126, potassium 5.4, CO2 14, BUN 78, creatinine 7.2. He has albumin of 2.0. He had 2+ protein, large amount of blood and too numerous to count WBCs. CT of the abdomen and pelvis with worsening interval development of hydronephrosis to the left, small to moderate left effusion and a right hydroureteronephrosis. ASSESSMENT AND PLAN: 1. Acute on chronic kidney disease stage 3 secondary to development of hydronephrosis in the setting of urothelial cancer. The patient has already been evaluated by Urology and discussion, as far as plan of care, family wishes to proceed with more aggressive management. The patient will have bilateral percutaneous nephrostomy tubes placed. It appears that this will be scheduled to be done Saturday morning. Once that has been completed, we will be able to determine if the patient will have any recovery at that time of his renal function. 2. Electrolytes, acid-base balance. He has marginally elevated potassium and some modest acidosis that is consistent with his hydronephrosis. Once his hydronephrosis has been treated will be able to evaluate his labs from a kidney perspective. 3. Hypertension. For the most part, his blood pressure has ranged from 120s to 140s. He has had one outlying of 170 systolic. If he continues with elevated blood pressures, will need to add additional therapy. Dictated by SHALONDA eRsendiz for Terry Stapleton MD cc: Terry Stapleton MD
--- NOTE | 2019-09-20 14:49 | HEMO/ONC CONSULTATION ---
DATE: 09/20/2019 REQUESTING PHYSICIAN: Dr. Galvan. CC/HPI: Patient is 84-year-old male. He is admitted to the hospital overnight with swelling of his extremities, confusion and decreased urine output. Family reports that over the last few weeks he has not done well. He has had increasing anxiety. They noticed over the last couple of days that his right upper extremity was swollen. Overnight his lower extremities were also swollen. Evaluation in the hospital revealed a creatinine of 7.2. This led to a CT of the abdomen and pelvis, which revealed interval development of left hydronephrosis as well as a right hydroureteronephrosis. Urology has been consulted. The patient has been placed on broad- spectrum antibiotics and IV fluids. From a hematology standpoint he was diagnosed to have metastatic urothelial carcinoma and hydronephrosis some time 6 months ago. He was not a candidate for cisplatin containing chemotherapy. He was started on immunotherapy with Tecentriq in 02/2019. He follows with Dr. Garibay and has received nephrostomy for right hydronephrosis in the past. He has a prior history prostate cancer and is status post radiation. He has a history of non- Hodgkin lymphoma and stage I gastric adenocarcinoma both of which are cured/in remission. PAST MEDICAL HISTORY: 1. CAD. 2. Prostate cancer status post radiation in 2001. 3. History of gastric cancer status post resection and chemoradiation 2007. 4. Hypertension. 5. CKD. 6. Bladder cancer as discussed above. ALLERGIES: No known drug allergies. SOCIAL HISTORY: He has a very supportive family. He is a smoker. He denies alcohol or substance abuse . FAMILY HISTORY: Noncontributory. CURRENT MEDICATIONS: Cefepime, Levaquin, Lasix, Zofran. REVIEW OF SYSTEMS: Family reports of increasing confusion. He also has had significant anxiety over the last month or so. He has been declined from his insurance and [employer] performance status. Not been eating very well. He denies any pain at this time. All other review of systems are negative. PHYSICAL EXAMINATION: Elderly male in no acute distress. Appears slightly confused at this time. Temperature 98.1 degrees, pulse 69, blood pressure 173/59.HEENT: EOMI. PERRLA. Anicteric. Mucous membranes appear partly dry. Neck: Supple without JVD, thyromegaly or nodules. Cardiac: Regular rate and rhythm. Normal S1, S2. Chest: Clear to auscultation. Abdomen: Soft, nontender, without hepatosplenomegaly or masses. Extremities: Reveal edema 2+. Neurological: Moving all 4 extremities. LABS: White count 20.6, hemoglobin 10.8, platelets 385,000, ANC 16.8, ALC 2.4. BUN 21, creatinine 7.2. Blood cultures and urine culture is pending. CT abdomen pelvis: Interval development of hydronephrosis on the left . Bilateral small effusions. Right hydroureteronephrosis. ASSESSMENT/PLAN: 1. Metastatic urothelial cancer: He has been on immunotherapy. During his last visit his penile mass and pain had decreased and hence we thought that he was responding from that standpoint. At present CT scans do not reveal metastatic disease. His performance is slowly declining due to multiple other issues. 2. Bilateral hydronephrosis: His creatinine has significantly increased. Creatinine on 09/02/2019 was 1.9. His baseline has been somewhere between 1.5 and 2.5 in the last [address] Garibay has been consulted. 3. Volume overload: Dr. Galvan has seen him this morning. He has discontinued IV fluids. I agree with his plan for albumin with some gentle diuresis. 4.Confusion: His confusion is likely infectious/metabolic. 5. Urinary tract infection: He is on broad-spectrum antibiotics per hospitalist group. Cultures are pending. 6. Do not resuscitate: Addressed. cc: Benson Espinoza MD MTDD
[2019-09-21] MEDS: MAXIPIME 1 GM in NS 50 ML IV SCH ×2 (05:00→16:06)
[2019-09-21] MEDS: ALBUMIN 25% IV SCH (09:03)
[2019-09-21] MEDS: LASIX IV SCH (09:04)
--- NOTE | 2019-09-21 10:17 | NEPHROLOGY PROGRESS NOTE ---
DATE: 09/21/2019 DATE AND TIME SEEN: On 09/21/2019 at 0650 hours. SUBJECTIVE: Mr. Patel is resting quietly in bed. He is n.p.o. for a procedure today per Dr. Garibay. He denies any pain. No discomfort. OBJECTIVE: Vital signs: Temperature 98.3 degrees, blood pressure 153/116, heart rate 83, respirations 18. He is on room air. Last recorded saturation 99%. He has had 240 in. He has only voided 30 out of his catheter to his right abdominal wall. LABS: Still currently pending. PHYSICAL EXAMINATION: General: This is an 84-year-old white male resting quietly in bed. He appears chronically ill. He is in no acute distress. Skin: Warm and dry. HEENT: Normocephalic, atraumatic. Conjunctivae pale pink. He has BECKIE. Mucous membranes are moist. Neck: Supple. Trachea midline. He has no evidence of JVD. Cardiovascular: Regular rate and rhythm. Lungs: Clear to auscultation bilaterally. Equal excursion. He is on room air. Abdomen: Soft, nontender, positive bowel sounds. Suprapubic catheter with clear yellow urine to a leg bag is intact. Extremities: The patient has 1+ pretibial edema. No clubbing or cyanosis. Neurological: He is confused to place and time. Alert to person and any discomfort. ASSESSMENT AND PLAN: 1. Acute on chronic kidney disease stage 3B. The patient has bilateral hydronephrosis with a history of urothelial cancer. He has a suprapubic catheter with decreased urinary output. Possible percutaneous nephrostomies today. Observe. 2. Electrolytes and acid-base balance. These are acceptable. 3. Anemia. This is stable. 4. Hypertension. The patient's blood pressure has been stable over the weekend with some outlined systolic blood pressures in the 150s and diastolics in the 100. states that he has been moving when he is getting his blood pressure taken. 5. At this time, we will continue to monitor his labs and evaluate for any changes. I would like to thank you for allowing us to follow with this patient. Dictated by SHALONDA Gutierrez for Terry Stapleton MD Face to face encounter, data reviewed, discussed with Amina Barrett on 09/21/19. I agree with the above assessment and plan of care. nataliia cc: SHALONDA Gutierrez MD MTDD
[2019-09-21] MEDS ORDERED: NS 250 ML ONE (10:20)
[2019-09-21] MEDS ORDERED: XYLOCAINE 1% ONE (10:20)
[2019-09-21 10:23] LABS: AGAP 23; ALB/GLOB RATIO 0.9; ALBUMIN 2.3 g/dL (3.5-5.0); ALKALINE PHOSPHATASE 181 U/L (32-122); BUN 90 mg/dL (8-22); CALCIUM 7.5 mg/dL (8.8-10.2); CHLORIDE 102 mmol/L (98-107); COSMO 299; CREATININE 7.9 mg/dL (0.7-1.2); ESTIMATED GFR 7; GLUCOSE 96 mg/dL (70-104); GOT 27 U/L (10-34); GPT < 5 U/L (10-44); MAGNESIUM 1.6 mg/dL (1.5-2.7); POTASSIUM 4.6 mmol/L (3.5-5.1); SODIUM 136 mmol/L (136-145); TCO2 11 mmol/L (25-35); TOTAL BILIRUBIN 0.43 mg/dL (0.20-1.00); TOTAL PROTEIN 4.8 g/dL (6.3-8.3)
[2019-09-21] MEDS ORDERED: DIPRIVAN 1% 500 MG/50 ML BOTTLE ONE (10:47)
[2019-09-21] MEDS ORDERED: FENTANYL ONE (10:49)
[2019-09-21 11:18] LABS: BASO# 0.02 X1000 (0.0-0.2); BASO% 0.1 % (0.0-0.8); HEMATOCRIT 31.2 % (42.0-52.0); HEMOGLOBIN 9.7 g/dL (14.0-18.0); IMM GRAN# 0.31 X1000 (0.0-0.04); IMM GRAN% 1.5 % (0.0-0.5); LYMPH# 1.66 X1000 (1.2-3.4); LYMPH% 7.8 % (20.5-51.1); MCH 26.9 PG (27-31); MCHC 31.1 g/dL (33-37); MCV 86.7 FL (81-99); MONO# 1.04 X1000 (0.11-0.59); MONO% 4.9 % (1.7-9.3); MPV 8.8 FL (7.4-10.4); NEUT% 85.7 % (42.2-75.2); PLT 379 X1000 (130-400); RDW 16.6 % (11.5-14.5); WBC 21.33 X1000 (4.8-10.8)
[2019-09-21 11:44] LABS: ANISOCYTOSIS 1+; LYMPHS 9 % (21-51); MONO 6 % (1-9); SEGS 84 % (42-75)
[2019-09-21 11:45] LABS: HYPOCHROM 1+; MICROCYTOSIS 1+
--- NOTE | 2019-09-21 12:53 | Diag Imaging Result Doc PS360 ---
EXAM: US RENAL 2 (RETROPER) COMPLETE 09/21/2019 HISTORY: BILATERAL PERC TECHNIQUE: Renal ultrasound COMMENT: There is bilateral hydronephrosis. The right kidney measures 8.2 cm x 4.7 cm. This is considerably smaller than on the previous study of 02/24/2019. The hydronephrosis was also present at that time. The left kidney measures 10.5 x 5.2 cm versus 11.4 x 5.5 cm at the time the previous study. It is also hydronephrotic. The bladder was not imaged during this procedure as there is a suprapubic catheter. IMPRESSION: Bilateral hydronephrosis. Worsened right renal atrophy. Electronically signed by Samm Quiroz 09/21/2019 12:51 PM
--- NOTE | 2019-09-21 13:07 | Diag Imaging Result Doc PS360 ---
EXAM: NEPHROSTOGRAM NEW ACCESS 09/21/2019 HISTORY: OBSTRUCTION TECHNIQUE: Left percutaneous nephrostomy with ultrasound and fluoroscopic guidance, fluoroscopy time one minute 32 seconds, dose 70 mg. One image. COMMENT: Consent was obtained from the patient and his prior to the procedure. The possibility of bleeding, infection, or kidney damage was discussed and they agreed to the procedure. Following sterile preparation of the skin posterior laterally on the left, a lower pole calyx was punctured under ultrasonographic guidance, with subsequent injection of contrast into the collecting system. A guidewire was passed and subsequent dilatation to 11-Beninese was performed. A 10.2-Beninese cope loop nephrostomy catheter was placed in the renal pelvis and secured to the skin with suture and the adhesive device provided with catheter. It is also secured by the self retaining ligature. IMPRESSION: Successful placement of left percutaneous nephrostomy catheter. Electronically signed by Samm Quiroz 09/21/2019 1:04 PM
--- NOTE | 2019-09-21 13:10 | Diag Imaging Result Doc PS360 ---
EXAM: NEPHROSTOGRAM NEW ACCESS 09/21/2019 HISTORY: OBSTRUCTION TECHNIQUE: Right percutaneous nephrostomy with ultrasound and fluoroscopic guidance. COMMENT: Following sterile preparation of the skin and administration of 1% lidocaine to the skin and deeper soft tissues, a mid pole calyx was punctured under ultrasonographic guidance and subsequently contrast was injected into the system. A 0.18 guidewire was advanced into the calyx and this was followed with a 0.35 Glidewire, following removal of the internal cannula. The Glidewire was advanced into the ureter, and subsequent dilatation to 11-Tamazight was performed. The 10.2-Tamazight cope loop nephrostomy catheter was subsequently advanced into the renal pelvis where it was secured with its self retaining ligature. There is a fair amount of extravasated contrast seen superior to the kidney. The catheter was subsequently secured to the skin with suture and the adhesive device provided with catheter. IMPRESSION: Successful right percutaneous nephrostomy. Electronically signed by Samm Quiroz 09/21/2019 1:08 PM
--- NOTE | 2019-09-21 14:12 | PROGRESS NOTE ---
DATE: 09/21/2019 SUBJECTIVE: The patient seems to be stable. No new complaints. He is going today for a surgical procedure due to his bilateral hydronephrosis. He will have a CT-guided nephrostomy tube placement. OBJECTIVE: Vital Signs: Temperature 97.2 degrees, pulse 73, respiratory rate 18, blood pressure 109/68. HEENT: Head normocephalic. No trauma. PERRLA. Neck: Supple. No JVD. No masses. Central trachea. Chest: Clear to auscultation. Some crepitus and crackles at the bases. Cardiovascular: RRR. Abdomen: Soft. Slightly distended with some abdominal wall edema. Suprapubic catheter in place. Neurological: The patient is awake and alert. He has no focal deficits but some weakness. LABORATORY: WBC 21.3, hemoglobin 9.7, hematocrit 31.2, platelets 379,000. Sodium 136, potassium 4.6, chloride 102, bicarbonate 11, BUN 90, creatinine 7.9, glucose 96, calcium 7.5. AST 27, ALT less than 5, alkaline phosphatase 181, albumin 2.3. ASSESSMENT AND PLAN: 1. Bilateral hydronephrosis, worse on the left. The patient has been evaluated by the Urology Department and hopefully today he will have a CT-guided nephrostomy tube placement. He seems to be stable. We will monitor. 2. Acute on chronic kidney disease, likely obstructive uropathy. Nephrology on board as well as Urology. 3. Fluid overload. For now we will continue with same the management. He received some albumin and Lasix yesterday. 4. Subclinical hypothyroidism with thyroid-stimulating hormone less than 10. We will continue to monitor. 5. Generalized weakness and physical deconditioning. 6. Altered mental status on presentation, likely global encephalopathy. 7. History of advanced urothelial bladder carcinoma. Dr. Espinoza is following this patient. 8. Previous history of stomach adenocarcinoma and prostate cancer. Aware. 9. Hyperkalemia, resolved. cc: Arsenio Kan MD
--- NOTE | 2019-09-21 16:32 | HEMO/ONC CONSULTATION ---
DATE: 09/21/2019 HISTORY OF PRESENT ILLNESS: Mr. 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 The patient had been on therapy with Tecentriq but due to multiple hospitalizations lately his treatment has been on hold since May 20. The patient went in as scheduled to have his nephrostomy tubes replaced. He has not quite recovered since then. He continues to have moment of confusion with UTIs and sepsis. The patient's states that they brought him to the emergency room on Saturday the because they noticed that he was having very little output through his suprapubic catheter that he was having a increasing edema to all 4 extremities. He was becoming more sleepy and confused with generalized weakness. VITAL SIGNS: Temperature 97.2 degrees, pulse rate 80, respiratory rate 18, blood pressure 142/52, O2 saturation 100% on room air. PHYSICAL EXAMINATION: General: Pleasantly confused gentleman in no acute distress. HEENT: Sclerae anicteric. PERRLA. Oral mucosa is normal. Cardiovascular: Normal S1, S2. Heart rate and rhythm regular. Respiratory: Lung sounds are clear to auscultation. Normal respiratory effort. Abdpmen soft and nontender. Extremities: Lower extremity +2 pitting edema. Neurological: Alert and oriented x2. Follows commands. Pleasantly confused. Skin: Warm, dry, and intact. LABORATORY: WBC 21.33, hemoglobin 9.7, hematocrit 31.2, platelet count 379,000. Creatinine 7.93. ASSESSMENT AND PLAN: 1. Metastatic ureteral cancer. The patient has been on immunotherapy. During his last visit, his penile mass and pain had decreased. We understood him to be responding from that standpoint. His last restaging scan does not reveal any metastatic disease. His performance is slowly declining due to multiple other issues. 2. Bilateral hydronephrosis. His creatinine has significantly increased. Creatinine on 09/02/2019 was 1.9 in the clinic. His baseline somewhere between 1.5 and 2.5. The patient is going for change out of his hydronephrosis tubes today. 3. Volume overload. Dr. Galvan is placing the patient on albumin for gentle diuresis. 4. Confusion remains most likely infectious or metabolic. 5. Urinary tract infection. Continue patient on broad-spectrum antibiotics per hospitalist. 6. Deep venous thrombosis prophylaxis. Continue the patient on sequential compression devices. Dictated by SHALONDA Alvarado for Benson Espinoza MD As above. Bilateral hydronephrosis. Nephrostomy today per Dr. Garibay's recommendation. Follow creatinine. Will continue to discuss with family regarding comfort care. Benson Espinoza MD cc: Benson Espinoza MD [facility]
[2019-09-21] MEDS: LEVAQUIN 250 MG/D5W 250 MG/50 ML IVPB IV SCH (17:31)
[2019-09-21] MEDS: TYLENOL PO PRN (23:43)
[2019-09-22] MEDS: MAXIPIME 1 GM in NS 50 ML IV SCH ×2 (04:29→17:01)
[2019-09-22 08:05] LABS: BASO# 0.03 X1000 (0.0-0.2); BASO% 0.2 % (0.0-0.8); EOS# 0.03 X1000 (0.0-0.7); EOS% 0.2 % (0.0-10.0); HEMATOCRIT 33.3 % (42.0-52.0); HEMOGLOBIN 10.4 g/dL (14.0-18.0); IMM GRAN# 0.21 X1000 (0.0-0.04); IMM GRAN% 1.4 % (0.0-0.5); LYMPH# 1.13 X1000 (1.2-3.4); LYMPH% 7.5 % (20.5-51.1); MCHC 31.2 g/dL (33-37); MCV 89.8 FL (81-99); MONO# 0.51 X1000 (0.11-0.59); MONO% 3.4 % (1.7-9.3); MPV 8.5 FL (7.4-10.4); NEUT# 13.19 X1000 (1.4-6.5); NEUT% 87.3 % (42.2-75.2); PLT 332 X1000 (130-400); RBC 3.71 XMIL (4.7-6.1); RDW 17.7 % (11.5-14.5)
[2019-09-22 08:40] LABS: ESTIMATED GFR 7
[2019-09-22 08:42] LABS: BANDS 6 % (0-1); LYMPHS 2 % (21-51); SEGS 92 % (42-75)
[2019-09-22 08:43] LABS: AGAP 22; ALB/GLOB RATIO 0.8; ALBUMIN 2.2 g/dL (3.5-5.0); ALKALINE PHOSPHATASE 137 U/L (32-122); BUN 85 mg/dL (8-22); CALCIUM 7.6 mg/dL (8.8-10.2); CHLORIDE 106 mmol/L (98-107); COSMO 297; CREATININE 7.1 mg/dL (0.7-1.2); GLUCOSE 84 mg/dL (70-104); GOT 14 U/L (10-34); GPT < 5 U/L (10-44); MAGNESIUM 1.8 mg/dL (1.5-2.7); POTASSIUM 4.4 mmol/L (3.5-5.1); SODIUM 136 mmol/L (136-145); TCO2 8 mmol/L (25-35); TOTAL BILIRUBIN 0.52 mg/dL (0.20-1.00); TOTAL PROTEIN 4.9 g/dL (6.3-8.3)
--- NOTE | 2019-09-22 08:49 | NEPHROLOGY PROGRESS NOTE ---
DATE: 09/22/2019 TIME SEEN: 0640. SUBJECTIVE: Mr. Patel is resting quietly in bed. He is nonverbal. His is at his bedside. OBJECTIVE: MOST RECENT VITAL SIGNS: Temperature 97.8 degrees, blood pressure 102/42, heart rate 68, respirations. He has 2.5 L nasal cannula. Last recorded saturation 100%. He has had 650 in, 760 out per his bilateral nephrostomy tubes. LABORATORY DATA: These are currently pending. Previous potassium 4.6, BUN 90, creatinine 7.9. The patient had a CO2 of 11 with a hemoglobin of 9.7. Albumin was 2.3. The patient had a urine culture completed showing gram-positive cocci. PHYSICAL EXAMINATION: General: This is an 84-year-old white male, resting quietly in bed. He appears in no acute distress. Skin: Warm and dry. HEENT: Normocephalic, atraumatic. Conjunctiva is pale. He has BECKIE. Mucous membranes are dry. Neck: Supple. Trachea midline. No evidence of JVD. Cardiovascular: Patient has a regular rate and rhythm. He is without murmur or gallop. Lungs: Clear to auscultation bilaterally. Equal excursion. Continues on room air. Abdomen: Soft. No tenderness noted. Bilateral sides with bilateral nephrostomy tubes. Left has clear yellow urine. Right has serosanguineous. Suprapubic catheter has cloudy drainage to the bag. Positive bowel sounds are present. Genitourinary: Not inspected. Extremities: No edema, no clubbing or cyanosis. Neurological: The patient makes eye contact though does not follow commands and remains nonverbal. ASSESSMENT AND PLAN: 1. Acute kidney injury on chronic kidney disease stage IIIB. The patient has bilateral hydronephrosis. He had bilateral nephrostomy tubes placed yesterday. Decreased urinary output to his suprapubic catheter. Labs are currently pending this a.m. 2. Electrolytes and acid-base balance. These are pending. CO2 yesterday was 11. Based upon his labs today, we will possibly start him on oral sodium bicarbonate. 3. Anemia. Hemoglobin of 9.7. We will continue to monitor. 4. Hypertension. This is improved status post surgery. I would like to thank you for allowing us to follow with this patient. Dictated by SHALONDA Gutierrezdish, MD Face to face encounter, data reviewed, discussed with Amina Barrett on 09/22/18. I agree with the above assessment and plan of care. cc: SHALONDA Gutierrez MD [facility]
[2019-09-22] MEDS ORDERED: SODIUM BICARBONATE PO SCH (09:00)
[2019-09-22] MEDS: ALBUMIN 25% IV SCH (09:43)
[2019-09-22] MEDS: LASIX IV SCH (09:44)
--- NOTE | 2019-09-22 13:02 | PROGRESS NOTE ---
DATE: 09/22/2019 SUBJECTIVE: The patient is lying in bed. No new complaints. He is status post bilateral CT- guided nephrostomy tube placement yesterday. His left drain has some urine, and the right one has some blood mixed with urine as well. He has a suprapubic catheter that also has some urine, but not too much. His kidney function improved just a little bit compared with yesterday. Nephrology Department on board, as well as Urology Department. OBJECTIVE: Vital Signs: Temperature 98.8 degrees, pulse 74, respiratory rate 14, blood pressure 112/32, oxygen saturation 98 on 2.5 L of nasal cannula. HEENT: Head normocephalic. No trauma. PERRLA. Neck: Supple. No JVD. No masses. Central trachea. Chest: Clear to auscultation. Crepitus and crackles at the bases. Cardiovascular: RRR. Abdomen: Soft, slightly distended with some abdominal wall edema. Suprapubic catheter in place. He also has, in his back, one nephrostomy tube placed in both sides. Neurologic: The patient is awake, alert. No focal deficit, but generalized weakness. LABORATORY DATA: WBC 15.1, hemoglobin 10.4, hematocrit 33.3, platelets 332,000. Sodium 136, potassium 4, chloride 106, bicarbonate 8, BUN 85, creatinine 7.1, glucose 84, calcium 7.6, albumin 2.2. ASSESSMENT AND PLAN: 1. Bilateral hydronephrosis, status post CT-guided nephrostomy tube placement. He seems to be stable. Will continue with the same management for now. 2. Acute on chronic kidney disease, likely obstructive uropathy. Nephrology Department on board as well as Urology. Seems to be a little bit better, but he is acidotic. Bicarbonate level is low. He has been placed on sodium bicarbonate by Urology Department. 3. Fluid overload. Continue with the same management. 4. Subclinical hypothyroidism with TSH less than 10. Continue to monitor. 5. Generalized weakness and physical deconditioning. 6. Altered mental status on presentation, likely global encephalopathy. This is getting better. 7. History of advanced urothelial bladder carcinoma. Dr. Espinoza is following this patient. 8. Previous history of stomach adenocarcinoma and prostate cancer. Aware. 9. Hyperkalemia, resolved. cc: Arsenio Kan MD
--- NOTE | 2019-09-22 16:35 | HEMO/ONC PROGRESS NOTE ---
DATE: 09/22/2019 SUBJECTIVE: Mr. Patel is comfortable in bed with his at bedside. He had his nephrostomy tubes replaced yesterday. He denies any specific complaints. No significant events occurred overnight. OBJECTIVE: Vital signs: Temperature 98.8 degrees, pulse rate 74, respiratory rate 14, blood pressure 112/32, O2 saturation 98% on nasal cannula at 2.5 L. General: This is a chronically ill- appearing gentleman in no acute distress. HEENT: Sclera is anicteric. PERRLA. Oral mucosa is normal. Cardiovascular: Normal S1, S2. Heart rate and rhythm regular. Respiratory: Chest is mostly clear to auscultation. Some rhonchi noted at the bases. Abdomen: Soft, nondistended. Slight tenderness around the suprapubic catheter. LABORATORY: WBC 15.10, hemoglobin 10.4, hematocrit 33.3, platelet count 332,000. Creatinine is 7.1, BUN 85, calcium 7.6, total protein 4.9, albumin 2.2. PROCEDURES: The patient had nephrostomy tubes replaced today. ASSESSMENT AND PLAN: 1. Metastatic ureteral cancer. The patient had been on immunotherapy in the clinic with resolution of painful metastasis. Due to recent hospitalizations and other comorbidities, he has not been able to have treatment and since last fall. his performance status is slowly declining. 2. Bilateral hydronephrosis, status post CT-guided nephrostomy tube replacement. Procedure seems to have went well. The patient tolerated well. He is recovering in his room. 3. Acute on chronic kidney disease. Nephrology is following the patient as well as Urology. Continue their recommendations. 4. Volume overload. The patient is being gently diuresed. Continue medical management. 5. Generalized weakness and deconditioning. Aware. 6. Deep venous thrombosis prophylaxis. Continue the patient with sequential compression devices to help him get up when he is able. Dictated by SHALONDA Alvarado for Benson Espinoza MD cc: Benson Espinoza MD [facility]
[2019-09-22] MEDS: ZYVOX 600 MG/D5W 600 MG/300 ML IVPB IV SCH (17:02)
[2019-09-22] MEDS: MYCAMINE 100 MG in NS 100 ML IV SCH (19:15)
[2019-09-22] MEDS: TYLENOL PO PRN (20:42)
[2019-09-22] MEDS: SODIUM BICARBONATE 8.4% 150 MEQ in D5W 1,000 ML IV SCH (20:53)
[2019-09-23] MEDS: TYLENOL PO PRN ×2 (04:03→21:31)
[2019-09-23] MEDS: ZYVOX 600 MG/D5W 600 MG/300 ML IVPB IV SCH ×2 (04:03→17:21)
[2019-09-23 08:34] LABS: BASO# 0.03 X1000 (0.0-0.2); BASO% 0.3 % (0.0-0.8); EOS# 0.07 X1000 (0.0-0.7); EOS% 0.6 % (0.0-10.0); HEMATOCRIT 30.3 % (42.0-52.0); HEMOGLOBIN 9.6 g/dL (14.0-18.0); IMM GRAN# 0.23 X1000 (0.0-0.04); IMM GRAN% 2.1 % (0.0-0.5); LYMPH% 11.8 % (20.5-51.1); MCH 27.8 PG (27-31); MCHC 31.7 g/dL (33-37); MCV 87.8 FL (81-99); MONO# 0.63 X1000 (0.11-0.59); MONO% 5.7 % (1.7-9.3); NEUT# 8.76 X1000 (1.4-6.5); NEUT% 79.5 % (42.2-75.2); PLT 233 X1000 (130-400); RBC 3.45 XMIL (4.7-6.1); RDW 17.2 % (11.5-14.5); WBC 11.02 X1000 (4.8-10.8)
[2019-09-23] MEDS: SODIUM BICARBONATE 8.4% 150 MEQ in D5W 1,000 ML IV SCH ×2 (08:51→21:31)
[2019-09-23] MEDS: LASIX IV SCH (08:52)
[2019-09-23] MEDS: ALBUMIN 25% IV SCH (08:52)
--- NOTE | 2019-09-23 08:55 | INFECTIOUS DISEASE CONSULT REP ---
DATE: 09/23/2019 CONCLUSION: Dr. Rodríguez asked me to see the patient about his fungemia. The patient does indeed have fungemia and the exact origin of it is uncertain to me at this time. It certainly could have come from his right-sided Port-A-Cath. Also, it is possible that the patient may have a fungal urinary tract infection which could be the source of the fungemia. The patient's urine culture grew a multiply drug-resistant enterococcus. I do not know exactly which drain the urine specimen came from. The patient has bilateral nephrostomy tubes and a suprapubic tube, so it is possible that one urine culture from one of the three places I mentioned above does have a multiply drug- resistant enterococcal urinary tract infection, but it is also possible that one of the other tube sites could have a yeast infection. RECOMMENDATIONS: I agree with treating the patient with micafungin and Zyvox. I have put in orders for urine cultures to be sent from each nephrostomy tube and also from the suprapubic tube. If one or more of the urinary tubes (i.e., the two nephrostomy tubes and the suprapubic tube) grow the same yeast that is in the blood, then I would assume that is where it came from. If none of the urine cultures are positive for the yeast, then I have to assume that the patient's Port-A- Cath is the source of it and it will have to be removed surgically because it is very unlikely that you can sterilize fungemia that comes from a Port-A-Cath. I agree with Dr. Rodríguez starting the patient on a combination of micafungin and Zyvox. DISCUSSION: The patient is unable to give me a history. Most the information I got was from the computer because the patient's also did not have a lot of definite information about the patient's illnesses. The patient was admitted to the hospital because he had a decreased urine output and he was having edema in his extremities, and also he had an altered mental status. He has a blood culture which is growing a yeast and he has one urine culture which is growing multiply drug-resistant enterococcus. The patient's CBC shows a white count of 15,100, hemoglobin 10.4, and platelet count 332,000. Creatinine is 7.1. GFR is 7. Alkaline phosphatase is 137. CT scan of the abdomen and pelvis showed changes that have been present for a long time and the newest change is that the patient has a left hydronephrosis and bilateral pleural effusions. The patient's chest x-ray shows clear lung steele and no discrete pleural fluid collection or pneumothorax. PAST MEDICAL HISTORY: Positive for coronary artery disease with placement of cardiac stents, erectile dysfunction, history of gastric cancer with resection and radiation and chemotherapy, prostate cancer, hypertension, fossa navicularis, proximal bulbar strictures, urinary retention which required placement of a suprapubic catheter, bladder cancer for which the patient is receiving immunotherapy, and chronic kidney disease stage III. PAST SURGICAL HISTORY: Positive for numerous cystoscopies, surgery for clot evacuation, a partial gastrectomy, Billroth 1, radiation of prostate cancer, and right subclavian port placement. SOCIAL HISTORY: The patient smoked when he was in his 30s but then quit. He does not drink alcoholic beverages or abuse drugs. He is and lives with his . [place]. FAMILY HISTORY: No illnesses were named. The family members are said to have of old age. DRUG ALLERGIES: None known. HOME MEDICATIONS: Include the following: Alprazolam, megestrol, Bystolic, and Benicar. PHYSICAL EXAMINATION: Vital Signs: Temperature is 98.2 degrees, pulse 72, respirations 17, blood pressure 131/62, patient weighs 125 pounds. General: This is a chronically ill-appearing, elderly male. He is in no acute distress. Head, Eyes, Ears, Nose, and Throat: He appeared to be able to hear my spoken words and see near objects. I did not see any white patches in his mouth. Neck: No meningismus. Lungs: Clear to auscultation. Cardiovascular: Heart rate is regular with premature supraventricular complexes. Abdomen: Soft and not tender. There is a suprapubic tube placed. Back Area: The patient has bilateral nephrostomy tubes in place. Neurologic: The patient is awake. He did move his extremities to requests but he was very weak. He was able to talk but he did not answer my questions. The patient does not have a tremor. Thank you for the consult. cc: MD JILLIAN Dockery
--- NOTE | 2019-09-23 09:01 | NEPHROLOGY PROGRESS NOTE ---
DATE: 09/23/2019 DATE AND TIME SEEN: On 09/23/2019 at 0720 hours. SUBJECTIVE: Mr. Patel is more awake and alert today. He has received a bolus of IV fluids with sodium bicarbonate. His is at his bedside. OBJECTIVE: Vital signs: Temperature 98.1 degrees, blood pressure 132/61, heart rate 67, respirations are 16. He is on 2 liters nasal cannula. Last recorded saturation 100%. He has had 1700 input, and he has had 630 output to bilateral nephrostomy tubes and suprapubic catheter. LABS: Currently pending this a.m. Previous potassium 4.4. Previous BUN 85 with a creatinine of 7.1, which were slightly improved from the previous day. Previous hemoglobin of 10.4. Urine culture shows gram-positive cocci, sensitivity is pending. PHYSICAL EXAMINATION: General: This is an 84-year-old elderly male who is a little bit more awake and alert today. Skin: Warm and dry. HEENT: Normocephalic, atraumatic. Conjunctiva is pale pink. He has BECKIE. Mucous membranes are dry. Neck: Supple. Trachea midline. Slight JVD of 6 mm. Cardiovascular: The patient is regular rate and rhythm without murmur or gallop. Lungs: Clear to auscultation anteriorly, equal excursion on O2. Abdomen: Soft, nontender, positive bowel sounds. Suprapubic catheter remains intact. Genitourinary: Not inspected. Extremities: Have trace lower extremity edema though he does have 2+ into the hip regions. Integumentary: The patient has bilateral nephrostomy tubes both right and left, right remains more serosanguineous and left is clear. Neurological: He is awake to person. Able to move extremities. ASSESSMENT AND PLAN: 1. Acute kidney injury on chronic kidney disease stage IIIB. The patient had bilateral hydronephrosis. He now has bilateral nephrostomy tubes placed. This is his second day postoperative. Labs are improved this morning. Urine output remains stable. 2. Electrolytes and acid-base balance. These are currently pending. We had started the patient on sodium bicarbonate by mouth yesterday. He was unable to take anything by mouth. We had then started 1 liter of D-5W with 3 amps of sodium bicarbonate to infuse at 125 mL an hour. We will leave this infusing at this time. Reevaluate labs in the morning. 3. Anemia. Hemoglobin of 9.7. We will continue to monitor, 10.4 yesterday. 4. Hypertension. This has improved. 5. Malnutrition. The patient's albumin has been in the low 2 range secondary to his new swelling, we will go ahead and give him albumin 50 grams x3 days, reevaluate and monitor on a daily basis. I would like to thank you for allowing us to follow with this patient. Dictated by SHALONDA Gutierrez for Terry Stapleton MD Face to face encounter, data reviewed, discussed with Amina Barrett on 09/23/19. I agree with the above assessment and plan of care. cc: SHALONDA Gutierrez MD [facility]
[2019-09-23 09:22] LABS: AGAP 23; ALB/GLOB RATIO 1.2; ALBUMIN 2.3 g/dL (3.5-5.0); ALKALINE PHOSPHATASE 108 U/L (32-122); BUN 78 mg/dL (8-22); CHLORIDE 97 mmol/L (98-107); COSMO 296; CREATININE 6.3 mg/dL (0.7-1.2); ESTIMATED GFR 8; GLUCOSE 179 mg/dL (70-104); GOT 9 U/L (10-34); GPT < 5 U/L (10-44); MAGNESIUM 1.5 mg/dL (1.5-2.7); POTASSIUM 3.1 mmol/L (3.5-5.1); SODIUM 134 mmol/L (136-145); TCO2 14 mmol/L (25-35); TOTAL BILIRUBIN 0.36 mg/dL (0.20-1.00); TOTAL PROTEIN 4.2 g/dL (6.3-8.3)
[2019-09-23] MEDS ORDERED: MAGNESIUM SULFATE 2 GM/S.W.I. 2 GM/50 ML IVPB IV ONE (09:46)
--- NOTE | 2019-09-23 13:17 | HEMO/ONC PROGRESS NOTE ---
DATE: 09/23/2019 SUBJECTIVE: Mr. Patel is asleep in his bed this morning. He awakes easily to my touch. His states that his procedure went very well yesterday, that 1 of his nephrostomy tubes is working better than the other. She also states that Dr. Wong came to talk to her, and informed her that the patient has a blood infection and the source may be the Port-A-Cath. The patient is slightly confused, but can be reoriented. The patient had no significant events overnight. VITAL SIGNS: Temperature 97.6 degrees, pulse rate 67, respiratory rate 18, blood pressure 135/60, O2 saturation 99% on nasal cannula at 2 L. He is in 0/10 pain. PHYSICAL EXAMINATION: General: This is a chronically ill-appearing gentleman, who is pleasantly confused and in no acute distress. HEENT: Sclerae is anicteric. PERRLA. Oral mucosa is normal. Cardiovascular: Normal S1, S2. Heart rate and rhythm is regular. Respiratory: Lungs are clear to auscultation, diminished somewhat at the bases. Gastrointestinal: Abdomen is soft, nondistended. Slight tenderness around the suprapubic catheter. LABORATORY: WBCs 11.02, hemoglobin 9.6, hematocrit 30.3, platelet count 233,000. Sodium 134, potassium 3.1, creatinine 6.3, calcium 7.0, albumin 2.3. ASSESSMENT AND PLAN: 1. Metastatic ureteral cancer. The patient has been on immunotherapy in our clinic with resolution of penile metastasis. His performance status has been slowly declining. We will follow up with him outpatient to determine any further therapy. 2. Acute kidney injury on chronic kidney disease stage III-B. The patient had bilateral hydronephrosis and he now has bilateral nephrostomy tubes replaced yesterday. The patient is recovering well. 3. Volume overload. The patient's extremities are improving in regards to edema. Continue gentle diuresis. Continue medical management with Nephrology. 4. Generalized weakness and deconditioning. Offer the patient protein shakes as needed. Encourage him to eat. Continue to get him out of bed. Utilize physical therapy to help get the patient moving. 5. Deep venous thrombosis prophylaxis. Continue the patient on sequential compression devices. Get him moving. 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 Dr. Wong has him on appropriate antifungal. There is a concern that it could have come from the Port-A-Cath. We will continue to monitor. Dictated by SHALONDA Alvarado for Benson Espinoza MD As above. Appreciate Dr. Wong's care. Unfortunately patient now has fungemia. If port suspected, may have to come out. May need rehab after infection taken care off. lately he has had recurrrent admissions. Increasing anxiety and worsening performance status. Immunotherapy on hold until he is better. Benson Espinoza MD cc: Benson Espinoza MD [facility]
--- NOTE | 2019-09-23 14:32 | PROGRESS NOTE ---
DATE: 09/23/2019 SUBJECTIVE: The patient is lying in bed. No new complaints. He is status post bilateral CT- guided nephrostomy tube placement, postoperative day #2. His left drain has urine. The right one has some blood mixed with urine as well. Suprapubic catheter with some urine, but not too much. His kidney function is improving. Nephrology Department as well as Urology Department are following this patient. OBJECTIVE: Vital Signs: Temperature 97.6 degrees, pulse 67, respiratory rate 17, blood pressure 135/60, oxygen saturation 99 on 2 L of nasal cannula. HEENT: Head normocephalic. No trauma. PERRLA. Neck: Supple. No JVD. No masses. Central trachea. Chest: Clear to auscultation. No wheezing. No rales. Abdomen: Soft, slightly distended with some abdominal wall edema. Suprapubic catheter in place. He also has, in his back, a bilateral nephrostomy tube in place. Neurological: The patient is awake. No focal deficit. Generalized weakness. He is not able to talk properly. Probably, he is confused. I can not understand what he says. LABORATORY DATA: WBC 11, hemoglobin 9.6, hematocrit 30.3, platelets 233,000. Sodium 134, potassium 3.1, chloride 97, bicarbonate 14, BUN 78, creatinine 6.3, glucose 179, calcium 7, albumin 2.3, magnesium 1.5. ASSESSMENT AND PLAN: 1. Bilateral nephrostomy tube, status post CT-guided nephrostomy tube placement bilaterally, postoperative day #2. He seems to be stable. Continue with the same management for now. Kidney function getting better. 2. Acute on chronic kidney disease, likely due to obstructive uropathy. Nephrology on board. Kidney function seems to be better. He is still acidotic. Continue with the same management. 3. Fluid overload. Continue with the same treatment. 4. Subclinical hypothyroidism with TSH less than 10. Continue to monitor. 5. Generalized weakness and physical deconditioning. 6. Altered mental status with global encephalopathy. He seems to be a little bit better. 7. History of advanced urothelial bladder carcinoma. Dr. Espinoza is following this patient. 8. Previous history of stomach adenocarcinoma and prostate cancer. Aware. 9. Hyperkalemia, resolved, and actually this patient is a little bit hypokalemic. 10. Borderline low hypomagnesemia. I will replace it. 11. Generalized weakness and physical deconditioning. I have requested Physical Therapy and Occupational Therapy to evaluate this patient. cc: Arsenio Kan MD
[2019-09-23] MEDS: MYCAMINE 100 MG in NS 100 ML IV SCH (16:09)
[2019-09-24] MEDS: ZYVOX 600 MG/D5W 600 MG/300 ML IVPB IV SCH ×2 (04:53→18:25)
[2019-09-24] MEDS ORDERED: POTASSIUM CHLORIDE 20% LIQUID PO ONE (06:07)
[2019-09-24 08:09] LABS: BASO# 0.02 X1000 (0.0-0.2); BASO% 0.1 % (0.0-0.8); EOS# 0.13 X1000 (0.0-0.7); EOS% 0.7 % (0.0-10.0); HEMATOCRIT 29.5 % (42.0-52.0); HEMOGLOBIN 9.6 g/dL (14.0-18.0); IMM GRAN# 0.34 X1000 (0.0-0.04); IMM GRAN% 1.8 % (0.0-0.5); LYMPH% 16.4 % (20.5-51.1); MCHC 32.5 g/dL (33-37); MCV 82.9 FL (81-99); MONO# 0.75 X1000 (0.11-0.59); MPV 9.8 FL (7.4-10.4); NEUT# 14.62 X1000 (1.4-6.5); PLT 204 X1000 (130-400); RBC 3.56 XMIL (4.7-6.1); RDW 16.2 % (11.5-14.5); WBC 18.96 X1000 (4.8-10.8)
[2019-09-24 08:35] LABS: ESTIMATED GFR 10
[2019-09-24 08:45] LABS: AGAP 24; ALB/GLOB RATIO 1.3; ALBUMIN 2.6 g/dL (3.5-5.0); ALKALINE PHOSPHATASE 106 U/L (32-122); BUN 71 mg/dL (8-22); CHLORIDE 89 mmol/L (98-107); COSMO 292; CREATININE 5.7 mg/dL (0.7-1.2); GLUCOSE 188 mg/dL (70-104); GOT 8 U/L (10-34); GPT < 5 U/L (10-44); MAGNESIUM 1.6 mg/dL (1.5-2.7); POTASSIUM 3.4 mmol/L (3.5-5.1); SODIUM 133 mmol/L (136-145); TCO2 20 mmol/L (25-35); TOTAL BILIRUBIN 0.41 mg/dL (0.20-1.00); TOTAL PROTEIN 4.6 g/dL (6.3-8.3)
[2019-09-24] MEDS: SODIUM BICARBONATE 8.4% 150 MEQ in D5W 1,000 ML IV SCH ×3 (10:34→20:53)
[2019-09-24] MEDS: LASIX IV SCH (10:37)
[2019-09-24] MEDS: ALBUMIN 25% IV SCH (10:38)
[2019-09-24] MEDS ORDERED: KLOR-CON PO ONE (14:07)
--- NOTE | 2019-09-24 14:31 | PROGRESS NOTE ---
DATE: 09/24/2019 SUBJECTIVE: The patient is lying comfortably in bed. No new complaints. His daughter is at the bedside. I will replace the potassium, and I will keep an eye on the calcium. OBJECTIVE: Vital Signs: Temperature 98.8 degrees, pulse 73, respiratory rate 14, blood pressure 164/61, oxygen saturation 96 on 1.5 L nasal cannula. HEENT: Head normocephalic. No trauma. PERRLA. Neck: Supple. No JVD. No masses. Central trachea. Chest: Clear to auscultation. No wheezing. No rales. Abdomen: Soft. Slightly distended with some abdominal wall edema. Suprapubic catheter in place. He also has, in his back, bilateral nephrostomy tubes in place. Neurological: The patient is awake. No focal deficits. Generalized weakness. He is not able to talk properly, but he is following commands on and off. LABORATORY DATA: WBC 18.9, hemoglobin 9.6, hematocrit 29.5, platelets 204,000. Sodium 133, potassium 2.8, chloride 89, bicarbonate 20, BUN 71, creatinine 5.7, glucose 188, calcium 7. AST 8, ALT less than 5, alkaline phosphatase 106. ASSESSMENT AND PLAN: 1. Bilateral nephrostomy tubes, status post CT-guided nephrostomy tube placement bilaterally, postoperative day #3. He seems to be stable. Continue with the same management. 2. Acute on chronic kidney disease, likely due to obstructive uropathy. Nephrology on board. BUN and creatinine trending down. 3. Fluid overload. Continue with the same management. 4. Subclinical hypothyroidism with TSH less than 10. Continue to monitor. 5. Generalized weakness and physical deconditioning. Physical Therapy on board. 6. Altered mental status with global encephalopathy. He seems to be a little bit better. 7. History of advanced urothelial bladder carcinoma. Dr. Espinoza following this patient closely. 8. Previous history of stomach adenocarcinoma and prostate cancer. Aware. 9. Hyperkalemia, resolved. Actually, this patient is hypokalemic, and I will replace the potassium. 10. Borderline low hypomagnesemia. Aware. I will recheck this again. 11. Hypocalcemia. This is mild, and he does not have any symptoms. 12. Generalized weakness and physical deconditioning. Continue physical therapy and occupational therapy. cc: Arsenio Kan MD
[2019-09-24] MEDS ORDERED: CALCIUM GLUCONATE 4.65 MEQ in NS 50 ML IV ONE (15:54)
[2019-09-24] MEDS ORDERED: MAGNESIUM SULFATE 2 GM/S.W.I. 2 GM/50 ML IVPB IV ONE (15:54)
--- NOTE | 2019-09-24 16:09 | EKG Report ---
Test Performed on : 09/24/2019 3:53:45 PM Test Reason : Tachycardia Blood Pressure : / mmHG Vent. Rate : 126 BPM Atrial Rate : 107 BPM P-R Int : 000 ms QRS Dur : 090 ms QT Int : 332 ms P-R-T Axes : 000 039 164 degrees QTc Int : 480 ms Atrial fibrillation. with rapid ventricular response. ST & T wave abnormality, consider lateral ischemia Abnormal ECG When compared with ECG of 19-SEP-2019 12:52, (Unconfirmed) Atrial fibrillation. has replaced Sinus rhythm. Vent. rate has increased BY 58 BPM Minimal criteria for Inferior infarct are no longer present ST now depressed in Lateral leads Inverted T waves have replaced nonspecific T wave abnormality in Lateral leads Confirmed by Lavelle Rebolledo MD ([id number]) on 09/25/2019 4:35:20 PM
[2019-09-24] MEDS: MYCAMINE 100 MG in NS 100 ML IV SCH (17:23)
--- NOTE | 2019-09-24 19:29 | NEPHROLOGY PROGRESS NOTE ---
DATE: 09/24/2019 TIME SEEN: 0735. SUBJECTIVE: Mr. Patel is resting quietly in bed. He is more awake and alert today. His states that he is more hungry today. OBJECTIVE: His most recent vital signs temperature 97.9 degrees, blood pressure 145/54, heart rate 72, respirations 16, he is on room air. Last recorded saturation 97%. He has had 1945 in, 1250 out. LABS: This a.m. his sodium is 133, potassium 3.4, chloride is 89, CO2 20, BUN 71, creatinine is 5.7, glucose is 188, anion gap 24 calcium of 7, magnesium 1.6, albumin 2.6. White count 18.96, hemoglobin 9.6, hematocrit 29.5 with a platelet count of 204,000. PHYSICAL EXAMINATION: General: This is an 84-year-old white male resting quietly in bed. He appears chronically ill no acute distress. Skin: Warm and dry. HEENT: Normocephalic, atraumatic. Conjunctiva is pale pink. He has BECKIE. Mucous membranes are dry. Neck: Supple. Trachea midline. No evidence of JVD. Cardiovascular: Regular rate and rhythm. He is without murmur or gallop. Lungs: Clear to auscultation bilaterally. Equal excursion on O2. Abdomen: Large, round, soft, nontender. Positive bowel sounds. The patient has a suprapubic catheter that is dry and intact with bilateral nephrostomy tubes, which are currently dry and intact. Right continues to have more darker drainage than the left. Neurological: He is awake to person. ASSESSMENT AND PLAN: 1. Acute kidney injury on chronic kidney disease stage IIIB. The patient had bilateral hydronephrosis. He had recently had bilateral nephrostomy tubes placed. BUN and creatinine have slowly responded over the last several days. Continues with adequate urine output. 2. Electrolytes, acid-base balance. Patient had hypokalemia yesterday. It appeared that this was addressed. He was given oral potassium this morning. Potassium level was 3.4. We have ordered a repeat potassium this afternoon. 3. Anemia. This has remained acceptable with a previous hemoglobin of 9.6. 4. Bilateral hydronephrosis. This is being followed by Urology. I would like to thank you for allowing us to follow with this patient. Dictated by SHALONDA Gutierrez for Terry Stapleton MD Face to face encounter, data reviewed, discussed with Amina Barrett on 09/24/19. I agree with the above assessment and plan of care. cc: SHALONDA Gutierrez MD [facility]
[2019-09-24] MEDS: CARDIZEM 100 MG/NS 100 MG/100 ML IVPB IV SCH (20:06)
--- NOTE | 2019-09-24 20:29 | INFECTIOUS DISEASE PROGRESS NO ---
DATE: 09/24/2019 PRESENT ILLNESS: Mr. Patel has a fungemia, the origin of which is either his urinary tract or his Port-A-Cath. There is also a vancomycin-resistant enterococcus that has grown in his urine. MEDICATIONS: He is receiving micafungin 100 mg IV every 24 hours, as well as Zyvox 600 mg IV every 12 hours. PHYSICAL EXAMINATION: Vital Signs: Temperature is 99 degrees, pulse rate 123, respiratory rate 14, blood pressure 101/61, O2 saturation is 98% on 1.5 L nasal cannula. General: This is a chronically ill-appearing, elderly gentleman. He is lying in bed, currently in no acute distress. HEENT: Atraumatic, normocephalic. Oral mucous membranes are pink and moist. Conjunctivae are pale. Neck: Supple. Trachea is midline. Cardiovascular: Irregularly irregular with atrial fibrillation on the monitor. Respiratory: Lung sounds are clear to auscultation bilaterally. No work of breathing is noted. Abdomen: Soft, flat, and nontender. Bowel sounds are active. He has nephrostomy tubes x2 to bilateral flanks. These are without edema, erythema, or drainage to the sites. There is also a suprapubic catheter which has some purulent drainage, but no redness to the site. Chest: There is a Port-A-Cath in place to the right chest that has not been accessed. That site is without edema, erythema, or drainage. Neurologic: The patient is awake, alert, and appears to be confused, minimally responsive verbally; however, he does follow commands without difficulty. Minimal movement noted in the bed. LABORATORY AND X-RAY: Today, his white count is 18.96, hemoglobin 9.6, platelet count 204,000. Creatinine is 5.7 with a GFR of 10. Total bilirubin is 0.41, AST 8, ALT less than 5, alkaline phosphatase 106. His urine has grown a vancomycin and multidrug resistant enterococcus. Blood cultures show 1/2 have grown yeast which has yet to be identified. No imaging reports today. ASSESSMENT AND PLAN: Mr. Patel is being treated for a fungemia using micafungin which we will continue. At this point, we are still waiting for the identification of the yeast which is very slow growing. He is also receiving Zyvox for the vancomycin resistant enterococcus which we will also continue. He has had a spike in his leukocytosis which we will continue to monitor. He does have a new rhythm of atrial fibrillation noted on the monitor. Dr. Rodríguez was made aware. For now, we will continue the Zyvox and micafungin as ordered, awaiting the final cultures. Also, yesterday several urine cultures were ordered, but due to problems with computer problems, some of those orders were discontinued. So, we have spoken to the lab and the nurse has collected urine from both nephrostomy tubes as well as the suprapubic catheter, and also we have swabbed the suprapubic catheter site which does have some purulent drainage. This is being done in order to rule out the possibility of a urinary tract fungal source for the fungemia. If there is no fungus found in the urine, we may end up having to remove the patient's Port-A-Cath. These plans have been discussed with and recommended by Dr. Wong. COMORBIDITIES: The comorbidities for Mr. Patel include that he is elderly with coronary artery disease with a new atrial fibrillation, bladder cancer, and chronic kidney disease. Dictated by SHALONDA Stacy for Toni Wong MD cc: Toni Wong MD [facility]
[2019-09-25] MEDS: SODIUM BICARBONATE 8.4% 150 MEQ in D5W 1,000 ML IV SCH ×2 (02:56→06:50)
[2019-09-25] MEDS: ZYVOX 600 MG/D5W 600 MG/300 ML IVPB IV SCH ×2 (03:49→16:35)
[2019-09-25 06:40] LABS: BASO# 0.02 X1000 (0.0-0.2); BASO% 0.1 % (0.0-0.8); EOS# 0.11 X1000 (0.0-0.7); EOS% 0.6 % (0.0-10.0); HEMATOCRIT 28.1 % (42.0-52.0); HEMOGLOBIN 9.1 g/dL (14.0-18.0); IMM GRAN# 0.26 X1000 (0.0-0.04); IMM GRAN% 1.4 % (0.0-0.5); LYMPH# 2.52 X1000 (1.2-3.4); LYMPH% 13.9 % (20.5-51.1); MCH 27.1 PG (27-31); MCHC 32.4 g/dL (33-37); MCV 83.6 FL (81-99); MONO# 0.66 X1000 (0.11-0.59); MONO% 3.6 % (1.7-9.3); MPV 9.3 FL (7.4-10.4); NEUT# 14.55 X1000 (1.4-6.5); NEUT% 80.4 % (42.2-75.2); PLT 141 X1000 (130-400); RBC 3.36 XMIL (4.7-6.1); RDW 16.3 % (11.5-14.5); WBC 18.12 X1000 (4.8-10.8)
[2019-09-25 07:21] LABS: ESTIMATED GFR 12
[2019-09-25 07:26] LABS: AGAP 23; ALB/GLOB RATIO 1.6; ALBUMIN 2.8 g/dL (3.5-5.0); ALKALINE PHOSPHATASE 101 U/L (32-122); BUN 64 mg/dL (8-22); CHLORIDE 86 mmol/L (98-107); COSMO 292; CREATININE 4.8 mg/dL (0.7-1.2); GLUCOSE 189 mg/dL (70-104); GOT 9 U/L (10-34); GPT < 5 U/L (10-44); MAGNESIUM 1.9 mg/dL (1.5-2.7); POTASSIUM 2.8 mmol/L (3.5-5.1); SODIUM 134 mmol/L (136-145); TCO2 25 mmol/L (25-35); TOTAL BILIRUBIN 0.47 mg/dL (0.20-1.00); TOTAL PROTEIN 4.6 g/dL (6.3-8.3)
--- NOTE | 2019-09-25 07:30 | Diag Imaging Result Doc PS360 ---
EXAM: CHEST-PORTABLE HISTORY: dyspnea TECHNIQUE: Single view COMPARISON: 09/19/2019 FINDINGS: Development of moderate-sized bilateral pleural effusions. There is bibasilar atelectasis and underlying infiltrates/pulmonary edema which have also developed. No cardiomegaly. Prominent atherosclerosis. No change in the right portacatheter. No pneumothorax. IMPRESSION: Interval worsening Electronically signed by Afshin Pickard 09/25/2019 7:27 AM
--- NOTE | 2019-09-25 07:43 | PROGRESS NOTE ---
DATE: 09/25/2019 SUBJECTIVE: The patient is resting comfortably in bed. It looks like the atrial fibrillation RVR resolved. Cardiology Department has been consulted. We will continue with same management. I will continue replacing his electrolytes. OBJECTIVE: Vital Signs: Temperature 98 degrees, pulse 65, respiratory rate 17, blood pressure 143/59, oxygen saturation 98 on 2 L of nasal cannula. HEENT: Head normocephalic. No trauma. PERRLA. Neck: Supple. No JVD. No masses. Central trachea. Chest: Clear to auscultation. No wheezing. No rales. Abdomen: Soft. Slightly distended with some abdominal wall edema. Suprapubic catheter in place. He has been on his back, bilateral nephrostomy tubes in place. Neurological: Awake. No focal deficits. He is confused, and he is not able to talk properly. LABORATORY DATA: Pending lab work at this moment. ASSESSMENT AND PLAN: 1. Bilateral hydronephrosis status post CT-guided nephrostomy tube placement. He seems to be stable. Continue with same management. 2. Acute on chronic kidney disease, likely obstructive uropathy. Nephrology on board. Kidney function has been getting better. Pending lab work today. Will monitor. 3. Fluid overload. Continue with same management. 4. Subclinical hypothyroidism with TSH less than 10. We will continue to monitor. 5. Generalized weakness and physical deconditioning. Continue physical therapy. 6. Altered mental status with global encephalopathy. He seems to be a little bit better but still confused. 7. History of advanced urothelial bladder carcinoma. Dr. Espinoza following this patient closely. 8. Previous history of stomach adenocarcinoma and prostate cancer. Aware. 9. Hyperlipidemia, resolved. Actually this patient has been hypokalemic. 10. Borderline low hypomagnesemia has been replaced. 11. Hypocalcemia has been replaced yesterday as well. 12. New onset atrial fibrillation with rapid ventricular response. This resolved. He is still on the Cardizem drip. I have requested an evaluation by Cardiology Department. cc: Arsenio Kan MD
[2019-09-25] MEDS: LASIX IV SCH (09:11)
[2019-09-25] MEDS: ALBUMIN 25% IV SCH ×2 (09:11→09:48)
--- NOTE | 2019-09-25 09:30 | HEMO/ONC PROGRESS NOTE ---
DATE: 09/25/2019 SUBJECTIVE: Mr. Patel is awake and pleasant this morning. He is happy to see me and talk. He is only slightly confused this morning but feeling a lot better. He was moved from the 3rd floor to the 2nd floor last evening due to an elevated heart rate due to atrial fibrillation. He was placed on a Cardizem drip and his heart rate is now controlled in the 60s. He is continuing to get electrolyte replacement. He continues to state he is comfortable. He has no pain. His remains at bedside. OBJECTIVE: Vital Signs: Temperature 97.9 degrees, pulse rate 64, respiratory rate 15, blood pressure 120/55, O2 saturation 99% on nasal cannula at 2 L. He is in 0/10 pain. General: On physical examination, the patient is in no acute distress. Pleasantly confused. Cardiovascular: Normal S1, S2. Heart rate and rhythm are regular. Respiratory: Lung sounds are clear to auscultation. Normal respiratory effort. Abdomen: Soft, nontender. Suprapubic catheter in place with some tenderness around the insertion. Neurological: He is pleasantly confused, but able to answer questions appropriately and follow commands. Extremities: Edema is improving. LABORATORY: WBCs 18.12, hemoglobin 9.1, hematocrit 28.1, platelet count a 141,009. Potassium 2.8, creatinine 4.8, calcium 7.0. RADIOLOGY: Chest x-ray shows interval worsening of moderate sized bilateral pleural effusions. His urine culture grew Enterococcus faecium. ASSESSMENT AND PLAN: 1. Metastatic urothelial cancer. The patient's treatment will remain on hold while he is recovering from his current illness. Not much to add from our standpoint. 2. Acute kidney injury on chronic kidney injury, stage 3B. The patient had bilateral hydronephrosis. He is status post CT-guided nephrostomy tube placement. Left tube appears to have clear urine. Right tube is draining bright red hematuria. Creatinine is trending down. The patient denies pain. Nephrology and Urology following. 3. Volume overload. The patient's extremities are improving. Continue same management. 4. Generalized weakness and deconditioning. Continue the patient on protein shakes. Encourage him to get up with physical therapy. 5. Deep venous thrombosis prophylaxis. Continue the patient on intermittent pneumatic devices. Continue to get him out of bed at least 3 times a day. 6. Electrolyte replacement. Continue to replace electrolytes per protocols. 7. Fungemia. Patient has been diagnosed with a fungemia. His urine or his Port-A-Cath could be his source. He also has vancomycin-resistant Enterococcus in the urine. Continue management per Dr. Wong. We will continue to monitor. Dictated by SHALONDA Alvarado for Benson Espinoza MD cc: Benson Espinoza MD [facility]
[2019-09-25] MEDS: MERREM 500 MG in NS 50 ML IV SCH ×2 (10:40→21:07)
[2019-09-25] MEDS: POTASSIUM CHLORIDE 20 MEQ/SWI 20 MEQ/100 ML IVPB IV SCH ×2 (11:13→13:30)
--- NOTE | 2019-09-25 11:47 | EKG Report ---
Test Performed on : 09/25/2019 10:47:29 AM Test Reason : converted to sr Blood Pressure : / mmHG Vent. Rate : 065 BPM Atrial Rate : 065 BPM P-R Int : 146 ms QRS Dur : 084 ms QT Int : 414 ms P-R-T Axes : 040 004 039 degrees QTc Int : 430 ms Sinus rhythm. with premature supraventricular complexes. Nonspecific ST and T wave abnormality Abnormal ECG When compared with ECG of 24-SEP-2019 15:53, (Unconfirmed) Sinus rhythm. has replaced Atrial fibrillation. Vent. rate has decreased BY [address] no longer depressed in Lateral leads T wave inversion less evident in Lateral leads Confirmed by Lavelle Rebolledo MD ([id number]) on 09/25/2019 4:36:16 PM
--- NOTE | 2019-09-25 16:16 | INFECTIOUS DISEASE PROGRESS NO ---
DATE: 09/25/2019 PRESENT ILLNESS: The patient has a fungemia, the origin of which could be his urinary tract or his Port-A-Cath. More recently the patient also has developed a vancomycin-resistant enterococcal urinary tract infection. MEDICATIONS: The patient has been on micafungin now for 3 days and Zyvox for 3 days. PHYSICAL EXAMINATION: Vital Signs: Temperature is 97.9 degrees, pulse 64, respirations 15, blood pressure is 120/55. General: This is an ill-appearing, elderly male. He is in no acute distress. Head/eyes/ears/nose/throat: He can hear my spoken words and see near objects. He does not have any white coating on his tongue. NECK: No pain with movement.Lungs: Clear to auscultation. Cardiovascular: Regular heart rate. Chest: In the upper right part of the patient's chest there is a Port-A-Cath. The site is not swollen, erythematous or draining pus. Abdomen: Abdomen is soft and not tender. The patient has a suprapubic catheter in place. Also, in both flank areas in the back, there are nephrostomy tubes present. Neurologic: The patient is awake. He can move his extremities. There is no tremor. LAB AND X-RAY: Chest x-ray shows bilateral pleural effusions, infiltrates and pulmonary edema. The patient's CBC shows a white count of 18,120, hemoglobin 9.1, and platelet count 141,000. Creatinine is 4.8, GFR is 12. ASSESSMENT AND PLAN: The patient has fungemia and also has an enterococcal urinary tract infection. It appears he also has pneumonia. My plan is to continue with Zyvox and micafungin for his urinary tract infection and his fungemia. I am going to also add meropenem because of the patient's possible pneumonia. I have ordered today repeat blood cultures. Also, I am going to order a procalcitonin level. If the patient's urine does not grow any yeast, then I would have to assume that the patient's fungemia came from his Port-A-Cath and that would need to be removed surgically. COMORBIDITIES: The patient is elderly, he has coronary artery disease, bladder cancer, and chronic kidney disease. cc: Toni Wong MD
--- NOTE | 2019-09-25 17:31 | CARDIOLOGY CONSULTATION ---
DATE: 09/25/2019 CONSULTATION REQUESTED BY: Hospitalist service. REASON: Is atrial fibrillation, irregular heartbeat. CHIEF COMPLAINT: Confusion, weakness. HISTORY: Mr. Patel is an unfortunate 84-year-old male who presented to the ER on 09/19/2019 brought by family because of decreased urinary output, weakness, confusion. On further evaluation, they have found that he was in acute renal failure with a BUN of 78, creatinine 7.2. He had a proBNP level of greater than 35,000. His initial x-rays showed a clear chest x-ray. His abdominal pelvic CT showed interval development of hydronephrosis on the left side with small right effusion and small to moderate left pleural effusion. The patient has been evaluated by Urology and they have performed percutaneous nephrostomy on him on September 21. Right and left percutaneous nephrostomy. They have diagnosed obstruction of the outflow tract of the bladder. The patient has a history of bladder cancer, advanced. Over the course of the past couple of days, they have noted bursts of atrial fibrillation on telemetry. Hence, the reason for this consultation. PAST MEDICAL HISTORY: According to the patient and the , is positive for coronary heart disease. Several years ago he was seen by Dr. Joe Owen in [place], and they performed a stent. His symptom at that time was increasing exertional dyspnea. He has not really had prior atrial fibrillation. Nevertheless, the says that about 2 weeks ago there was some documentation of irregular heartbeat on him. The patient does have a history of hypertension and urinary retention. SURGICAL HISTORY: He has had previous partial gastrectomy with a Billroth type 2 surgery for gastric cancer in 2007. He has been diagnosed with Ta's esophagus. He has a remote history of prostate cancer treated with radiation therapy. There is no other major positive history. SOCIAL HISTORY: He retired from [employer] about 20 years ago. He has been for 63 years. They have 2 grown up children. He is not a smoker. He has been relatively active until the development of bladder cancer, which is the most recent and pressing problem that he has. REVIEW OF SYSTEMS: At this point in time, besides what I have already reported is noncontributory. The patient's functional capacity is markedly impaired at this time. HOME MEDICATIONS: 1. Included alprazolam 1 tablet at bedtime. I do not know exactly the strength. 2. Calcium carbonate 500 mg twice a day. 3. Megestrol 10 mg twice a day. 4. Bystolic 10 mg daily. 5. Olmesartan 40 mg daily. ALLERGIES: No allergies. PHYSICAL EXAMINATION: Vital signs: Blood pressure is 120/55, temperature 97.9 degrees, pulse 64, respirations 15. GENERAL: He is awake, elderly, chronically ill, somewhat pale, in no distress.HEENT: Normal. There is no jugular venous distention. Chest: Diminished breath sounds bilaterally. Heart: Sounds are regular rhythm. I do not hear a gallop or murmur. Abdomen: Nontender. Bowel sounds diminished. Extremities: Showed no edema. Neurological: He follows simple commands. He is very weak and also he has some stiffness in to his trunk. BLOOD WORK: Sodium 134, potassium 2.8, BUN 64, creatinine 4.8. White cell count 18,000. His urine culture is growing enterococcus, and they have isolated Loli glabrata from the blood. IMPRESSION: 1. Patient who has paroxysmal atrial fibrillation. This is probably exacerbated by his metabolic stress, acute renal failure, systemic infection. 2. History of coronary heart disease, stable pattern for the past 10 years. 3. Remote history of gastric cancer, status post gastrectomy. 4. Remote history of prostate cancer. 5. Active bladder cancer with obstruction to the outflow of the bladder. 6. Bilateral hydronephrosis. 7. Acute renal failure on top of chronic. RECOMMENDATIONS: From cardiology viewpoint, I really do not have any great suggestions. I may advise to try low-dose diltiazem by mouth. I would let the plumber cub team handle the electrolyte abnormalities. We will observe and follow him from the periphery because really the cardiac issues are completely secondary to whatever else is going on with him. cc: Cb Braswell MD
--- NOTE | 2019-09-25 17:57 | NEPHROLOGY PROGRESS NOTE ---
DATE: 09/25/2019 SUBJECTIVE: His again states that he is improving day by day, but he is still "not good." No specific complaint, however. No shortness of breath, nausea, vomiting. He is eating very little. OBJECTIVE: Vital Signs: Blood pressure 120/55, heart rate 64, respirations 15, afebrile. Intake 1.8 L. Output 900 mL. General: No acute distress. Skin: Warm and dry. Conjunctiva are pale. Neck: Neck veins are not appreciated. Heart: Regular with systolic murmur. Lungs: Equal, shallow, no crackles. Abdomen: Soft, nontender. Bowel sounds are present. Extremities: With 2+ edema. No clubbing or cyanosis. IMPRESSION: 1. Acute kidney injury secondary to obstruction. Creatinine improving daily. 2. Volume status. He has been receiving IV fluids. He now has significant edema. Albumin is low at 2.8. We will give furosemide 100 mg daily over the next 3 days. May require albumin. Stopped IV fluids. cc: Terry Stapleton MD
[2019-09-25] MEDS: MYCAMINE 100 MG in NS 100 ML IV SCH (19:00)
[2019-09-25] MEDS: MEGACE PO SCH (21:07)
[2019-09-26] MEDS: TYLENOL PO PRN (01:17)
[2019-09-26] MEDS: CARDIZEM 100 MG/NS 100 MG/100 ML IVPB IV SCH (01:21)
[2019-09-26] MEDS: ZYVOX 600 MG/D5W 600 MG/300 ML IVPB IV SCH ×3 (03:18→15:57)
[2019-09-26 06:52] LABS: BASO# 0.01 X1000 (0.0-0.2); BASO% 0.1 % (0.0-0.8); EOS% 1.2 % (0.0-10.0); HEMATOCRIT 28.3 % (42.0-52.0); HEMOGLOBIN 9.1 g/dL (14.0-18.0); IMM GRAN# 0.18 X1000 (0.0-0.04); IMM GRAN% 1.1 % (0.0-0.5); LYMPH# 1.98 X1000 (1.2-3.4); LYMPH% 12.1 % (20.5-51.1); MCH 26.8 PG (27-31); MCHC 32.2 g/dL (33-37); MCV 83.5 FL (81-99); MONO# 0.51 X1000 (0.11-0.59); MONO% 3.1 % (1.7-9.3); MPV 10.1 FL (7.4-10.4); NEUT# 13.48 X1000 (1.4-6.5); NEUT% 82.4 % (42.2-75.2); PLT 167 X1000 (130-400); RBC 3.39 XMIL (4.7-6.1); RDW 16.2 % (11.5-14.5); WBC 16.36 X1000 (4.8-10.8)
[2019-09-26 07:11] LABS: ESTIMATED GFR 12
[2019-09-26 07:29] LABS: AGAP 20; ALB/GLOB RATIO 1.8; ALKALINE PHOSPHATASE 104 U/L (32-122); BUN 63 mg/dL (8-22); CALCIUM 7.6 mg/dL (8.8-10.2); CHLORIDE 88 mmol/L (98-107); COSMO 289; CREATININE 4.8 mg/dL (0.7-1.2); GLUCOSE 109 mg/dL (70-104); GOT 8 U/L (10-34); GPT < 5 U/L (10-44); MAGNESIUM 1.8 mg/dL (1.5-2.7); POTASSIUM 3.1 mmol/L (3.5-5.1); SODIUM 135 mmol/L (136-145); TCO2 27 mmol/L (25-35); TOTAL BILIRUBIN 0.74 mg/dL (0.20-1.00); TOTAL PROTEIN 4.7 g/dL (6.3-8.3)
[2019-09-26] MEDS ORDERED: POTASSIUM CHLORIDE 20% LIQUID PO ONE (08:29)
[2019-09-26] MEDS ORDERED: CARDIZEM PO SCH (09:15)
[2019-09-26] MEDS: MERREM 500 MG in NS 50 ML IV SCH ×3 (09:31→23:29)
[2019-09-26] MEDS: LASIX IV SCH (09:32)
[2019-09-26] MEDS: MEGACE PO SCH ×2 (09:32→20:55)
[2019-09-26] MEDS: CARDIZEM PO SCH ×3 (10:10→20:56)
[2019-09-26] MEDS ORDERED: VANCOCIN PO SCH (14:00)
--- NOTE | 2019-09-26 15:00 | PROGRESS NOTE ---
DATE: 09/26/2019 SUBJECTIVE: The patient is resting comfortably in bed. He is no longer on atrial fibrillation with rapid ventricular response, I will stop the Cardizem drip and I will put her on p.o. treatment, low-dose. He has been getting 5 mcg/hour and he seems to be stable which is basically 120 mg per day so I will give him to start with 30 mg q.6 hours and I will get Cardiology department to re-evaluate this patient. OBJECTIVE: Vital Signs: Temperature 97.7 degrees, pulse 59, respiratory rate 16, blood pressure 118/57, oxygen saturation 98 on 2 L of nasal cannula. HEENT: Head normocephalic. No trauma. PERRLA. Neck: Supple. No JVD. No masses. Central trachea. Chest: Clear to auscultation. No wheezing. No rales. Abdomen: Soft, slightly distended with some abdominal wall edema. Suprapubic catheter in place. He has also a bilateral nephrostomy tube in place. Lower extremities: 3+ lower extremity edema. No clubbing. No cyanosis. Neurological: The patient is awake. No focal deficit but he is confused. He is making more sense today though. LABORATORY DATA: WBC 16.3, hemoglobin 9.1, hematocrit 28.3, platelet 167,000. Sodium 135, potassium 3.1, chloride 98, bicarbonate 27, BUN 63, creatinine 4.8, glucose 109, calcium 7.6, phosphorus 4.9, albumin 3. ASSESSMENT AND PLAN: 1. Bilateral hydronephrosis status post CT-guided nephrostomy tube placement, seems to be stable. Continue with same management. Urology Department on board. 2. Acute on chronic kidney disease, likely obstructive uropathy, BUN and creatinine are getting better slowly. Nephrology Department on board, kidney function has been getting better slowly. 3. Fluid overload. Continue with same management. He is getting Lasix, per Nephrology recommendations. 4. Subclinical hypothyroidism with TSH less than 10. Continue to monitor. 5. Generalized weakness and physical deconditioning. Continue physical therapy. 6. Altered mental status with global encephalopathy, seems to be getting better slowly, but he is still confused. 7. History of advanced urothelial bladder carcinoma, Urology and Hematology/Oncology Department following this patient closely. 8. Previous history of stomach adenocarcinoma and prostate cancer. Aware. 9. Hyperkalemia, resolved. Actually, this patient is slightly hypokalemic. 10. Borderline low hypomagnesemia which has been replaced already. 11. Hypocalcemia has been also replaced as well. 12. New onset atrial fibrillation with rapid ventricular response, he converted back to sinus rhythm. I will continue with low dose of Cardizem p.o. and I will stop the drip. cc: Arsenio Kan MD
[2019-09-26] MEDS: MYCAMINE 100 MG in NS 100 ML IV SCH (15:57)
[2019-09-26] MEDS: VANCOCIN PO SCH ×2 (15:58→20:56)
[2019-09-26] MEDS: XANAX PO PRN (21:09)
--- NOTE | 2019-09-26 23:22 | NEPHROLOGY PROGRESS NOTE ---
DATE: 09/26/2019 SUBJECTIVE: He is awake and alert. Speech is intermittently confused. OBJECTIVE: Vital Signs: Blood pressure 113/55, heart rate 64, respirations 20, afebrile. General: No acute distress. Skin: Warm and dry. Neck: Neck veins are not appreciated. Heart: Regular with systolic murmur. Lungs: Equal, no crackles, shallow. Abdomen: Soft, nontender. Bowel sounds present. Extremities: 2+ edema. IMPRESSION: 1. Acute kidney injury. 2. Obstructive uropathy. 3. Solitary functioning kidney. PLAN: Creatinine has improved progressively since percutaneous nephrostomy was placed. Unfortunately, over the last 24 hours, his creatinine has remained stable. He remains volume expanded. I did give Lasix yesterday. I will discontinue this today. He has completed his albumin infusion and his albumin was 3.0 today. cc: Terry Stapleton MD
[2019-09-27] MEDS: CARDIZEM PO SCH ×4 (03:35→22:38)
[2019-09-27] MEDS: VANCOCIN PO SCH ×4 (03:35→22:38)
[2019-09-27] MEDS: ZYVOX 600 MG/D5W 600 MG/300 ML IVPB IV SCH ×2 (03:36→19:52)
[2019-09-27 06:34] LABS: EOS# 0.22 X1000 (0.0-0.7); EOS% 1.4 % (0.0-10.0); HEMATOCRIT 27.9 % (42.0-52.0); HEMOGLOBIN 8.8 g/dL (14.0-18.0); IMM GRAN# 0.12 X1000 (0.0-0.04); IMM GRAN% 0.7 % (0.0-0.5); LYMPH# 2.67 X1000 (1.2-3.4); LYMPH% 16.6 % (20.5-51.1); MCH 26.7 PG (27-31); MCHC 31.5 g/dL (33-37); MCV 84.8 FL (81-99); MONO# 0.52 X1000 (0.11-0.59); MONO% 3.2 % (1.7-9.3); NEUT# 12.51 X1000 (1.4-6.5); NEUT% 78.1 % (42.2-75.2); PLT 129 X1000 (130-400); RBC 3.29 XMIL (4.7-6.1); RDW 16.1 % (11.5-14.5); WBC 16.04 X1000 (4.8-10.8)
[2019-09-27 08:27] LABS: CALCIUM 7.9 mg/dL (8.8-10.2); CREATININE 4.4 mg/dL (0.7-1.2); POTASSIUM 3.3 mmol/L (3.5-5.1)
[2019-09-27] MEDS ORDERED: POTASSIUM CHLORIDE 20% LIQUID PO ONE (08:28)
[2019-09-27] MEDS: MERREM 500 MG in NS 50 ML IV SCH ×2 (09:43→22:39)
[2019-09-27] MEDS: MEGACE PO SCH ×2 (09:43→22:38)
--- NOTE | 2019-09-27 10:35 | PROGRESS NOTE ---
DATE: 09/27/2019 SUBJECTIVE: The patient is resting comfortably in bed. He is no longer in atrial fibrillation. As per the , it has been a good night, and we put him on his home medication, Xanax, per their request. He has been having some diarrhea. Clostridium difficile toxin is positive, and I have started this patient on vancomycin p.o. OBJECTIVE: Vital Signs: Temperature 97.6 degrees, pulse 60, respiratory rate 15, blood pressure 113/43, oxygen saturation 98% on 2 L of nasal cannula. HEENT: Head normocephalic. No trauma. PERRLA. Neck: Supple. No JVD. No masses. Central trachea. Chest: Clear to auscultation. No wheezing. No rales. Abdomen: Soft, slightly distended with some abdominal wall edema. Suprapubic catheter in place. He has also bilateral nephrostomy tubes in place. Extremities: There is 3+ lower extremity. No clubbing, no cyanosis. Neurological: The patient is awake. No focal deficit, but he is able to say his name. He knows he is in the hospital. He is oriented to time. He is able to recognize family members at the bedside. He is following commands on and off. LABORATORY DATA: WBC 16, hemoglobin 8.8, hematocrit 27.9, platelets 129,000. Sodium 135, potassium 2.3, chloride 88, bicarbonate 26, BUN 62, creatinine 4.4, glucose 111, calcium 7.9. ASSESSMENT AND PLAN: 1. Bilateral hydronephrosis, status post CT-guided nephrostomy tube placement. Seems to be stable. He is making clear urine. Will monitor. Urology Department on board. 2. Acute on chronic kidney disease, likely obstructive uropathy. BUN and creatinine trending down slowly. 3. Fluid overload. Continue with the same management. He has been getting Lasix by Nephrology Department. I will wait for more recommendations today. 4. Fluid overload. As above. 5. Subclinical hypothyroidism with TSH less than 10. Continue to monitor. 6. Generalized weakness and physical deconditioning. Continue physical therapy. 7. Altered mental status with global encephalopathy. This seems to be getting better. 8. History of advanced urothelial bladder carcinoma. Urology Department and Hematology/Oncology Department on board. 9. Previous history of stomach adenocarcinoma and prostate cancer. Aware. 10. Hypokalemia. I will give her a low dose of potassium today. 11. Borderline low hypomagnesemia, which has been replaced already. 12. Hypocalcemia. Getting better. 13. New-onset atrial fibrillation with rapid ventricular response, converted back to sinus rhythm. I have placed this patient on a low dose of Cardizem by mouth. 14. Clostridium difficile colitis. I have placed this patient on vancomycin by mouth. Infectious Disease Department also on board. cc: Arsenio Kan MD
[2019-09-27] MEDS ORDERED: XYLOCAINE 1%/EPI 1:100,000 INJ ONE ×2 (15:15→15:30)
[2019-09-27] MEDS: MYCAMINE 100 MG in NS 100 ML IV SCH (18:47)
--- NOTE | 2019-09-27 19:56 | INFECTIOUS DISEASE PROGRESS NO ---
DATE: 09/27/2019 PRESENT ILLNESS: The patient has a Loli glabrata fungemia which I think arose from his Port-A- Cath. He also has urinary tract infections and possible pneumonia. Patient has Clostridium difficile diarrhea. MEDICATIONS: The patient has been on micafungin for 2 days with day #1 being the first day that the repeat blood cultures are sterile. The patient has been on Zyvox for 5 days and meropenem for 2 days. Patient also is on oral vancomycin to treat his Clostridium difficile diarrhea. PHYSICAL EXAMINATION: Vital Signs: Temperature is 98 degrees, pulse 64, respirations 14, blood pressure is 104/39. General: This is an ill-appearing elderly male. He is in no acute distress. Head/eyes/ears/nose/throat: He appears to be able to hear my spoken words. I was not able to determine how good his vision is. He does not have any white coating on his tongue. Neck: No pain with movement. Lungs: Clear to auscultation. Cardiovascular: Heart rate is regular. Chest: In the right upper part of the patient's chest, there is a Port-A-Cath. The site is not erythematous, swollen or purulent. Abdomen: The patient has a suprapubic tube in place. Back: Patient has bilateral nephrostomy tubes in place. All 3 of the tube sites are not erythematous or purulent. Neurologic: The patient is awake. He does not answer questions well . He can move his extremities to a small amount. He does not have a tremor. LAB AND X-RAY: The patient's creatinine is 4.4, GFR is 13. Liver function studies are normal. Clostridium difficile toxin is positive. The patient's repeat blood cultures are negative. The patient's repeat urine cultures are growing gram-positive cocci one of which is an Enterococcus. A culture taken from the patient's suprapubic site is growing Staph epidermidis. Blood cultures are growing Loli glabrata. Patient's stool is positive for Clostridium difficile toxin. ASSESSMENT AND PLAN: The patient has Loli glabrata fungemia which I think originates from the Port-A-Cath. My plan is to continue micafungin and I put in a consult for Dr. Cisneros to remove the Port-A-Cath. I agree with treating the patient with p.o. vancomycin for his Clostridium difficile diarrhea. Also I am going to continue Zyvox and meropenem for the patient's urinary tract infections and possible pneumonia as well. COMORBIDITIES: The patient is elderly. He has coronary artery disease, bladder cancer and chronic kidney disease. cc: Toni Wong MD
[2019-09-27] MEDS: XANAX PO PRN (22:44)
[2019-09-28] MEDS: CARDIZEM PO SCH ×4 (03:51→22:53)
[2019-09-28] MEDS: VANCOCIN PO SCH ×4 (03:51→20:25)
[2019-09-28 06:09] LABS: BASO# 0.01 X1000 (0.0-0.2); BASO% 0.1 % (0.0-0.8); HEMATOCRIT 29.7 % (42.0-52.0); HEMOGLOBIN 9.1 g/dL (14.0-18.0); LYMPH# 2.38 X1000 (1.2-3.4); LYMPH% 14.5 % (20.5-51.1); MCH 26.5 PG (27-31); MCHC 30.6 g/dL (33-37); MCV 86.6 FL (81-99); MONO# 0.45 X1000 (0.11-0.59); MONO% 2.7 % (1.7-9.3); MPV 10.6 FL (7.4-10.4); PLT 112 X1000 (130-400); RBC 3.43 XMIL (4.7-6.1)
[2019-09-28 06:17] LABS: ESTIMATED GFR 13
[2019-09-28 06:24] LABS: AGAP 20; ALB/GLOB RATIO 1.2; ALBUMIN 2.5 g/dL (3.5-5.0); ALKALINE PHOSPHATASE 128 U/L (32-122); BUN 62 mg/dL (8-22); CALCIUM 7.4 mg/dL (8.8-10.2); CHLORIDE 86 mmol/L (98-107); COSMO 284; CREATININE 4.3 mg/dL (0.7-1.2); GLUCOSE 91 mg/dL (70-104); GOT 7 U/L (10-34); GPT < 5 U/L (10-44); POTASSIUM 3.4 mmol/L (3.5-5.1); SODIUM 133 mmol/L (136-145); TCO2 27 mmol/L (25-35); TOTAL BILIRUBIN 0.82 mg/dL (0.20-1.00); TOTAL PROTEIN 4.6 g/dL (6.3-8.3)
--- NOTE | 2019-09-28 06:55 | INFECTIOUS DISEASE PROGRESS NO ---
DATE: 09/28/2019 PRESENT ILLNESS: The patient has a Loli glabrata fungemia, urinary tract infections, possible pneumonia, and Clostridium difficile diarrhea. MEDICATIONS: This is day 3 for micafungin and day 3 for meropenem. This is day 6 of treatment with Zyvox and this is day 2 of treatment with p.o. vancomycin. PHYSICAL EXAMINATION: Vital Signs: Temperature is 97.8 degrees, pulse 63, respirations 17, blood pressure 112/38. General: This is an ill-appearing, elderly male. He is sleeping. Head, Eyes, Ears, Nose, and Throat: No drainage noted from the nose or ears. Neck: No apparent pain to passive movement of his neck. Lungs: Clear to auscultation. Cardiovascular: Heart rate is regular. Thorax: On the upper part of the right chest, the patient's Port-A-Cath has been removed yesterday by Dr. Cisneros. There is a dressing over the area and the dressing is intact. Abdomen: Soft. The patient has a suprapubic tube present. He also has bilateral nephrostomy tubes present. Neurologic: The patient is sleeping. There is no tremor. LAB AND X-RAY: The patient's CBC and CMP are pending. There is no new radiographic study. ASSESSMENT AND PLAN: The patient has Loli glabrata fungemia which I think originated from his Port-A-Cath. The Port-A-Cath has been removed. The patient also has a urinary tract infection and possible pneumonia for which he is on Zyvox and meropenem. He also has Clostridium difficile diarrhea for which the patient is on oral vancomycin. I plan to continue all the antimicrobial agents mentioned above. COMORBIDITIES: The patient is elderly, he has coronary artery disease, bladder cancer, and end- stage renal disease. cc: Toni Wong MD
[2019-09-28 08:18] LABS: LYMPHS 8 % (21-51); SEGS 92 % (42-75)
--- NOTE | 2019-09-28 09:28 | PROGRESS NOTE ---
DATE: 09/28/2019 SUBJECTIVE: The patient resting comfortably in bed. He is no longer in atrial fibrillation. As per the , he had a good night. I put this patient on his home medication, Xanax, per their request. He has C difficile toxin positive. I have started this patient on vancomycin p.o. He is still having bowel movements, but it looks more soft than liquid. PHYSICAL EXAMINATION: Vital Signs: Temperature 98.1 degrees, pulse 68, respiratory rate 14, blood pressure 112/41, oxygen saturation 98 on 2 L of nasal cannula. HEENT: Head normocephalic. No trauma. PERRLA. Neck: Supple. No JVD. No masses. Central trachea. Chest: Clear to auscultation. Some crepitus at the bases. Abdomen: Soft, slightly distended with some abdominal wall edema. Suprapubic catheter in place. He also has bilateral nephrostomy tubes in place with clear urine. Extremities: 2+ lower extremity edema. No clubbing. No cyanosis. Neurological: The patient is sleepy, but arousable. He is oriented x2. He is able to recognize family members at the bedside. He is following commands on and off. LABORATORY DATA: WBC 16.4, hemoglobin 9.1, hematocrit 29.7, platelets 112,000. Sodium 133, potassium 3.4, chloride 86, bicarbonate 27, BUN 62, creatinine 4.3, glucose 9.1, calcium 7.4. ASSESSMENT AND PLAN: 1. Bilateral hydronephrosis, status post CT-guided nephrostomy tube placement. He seems to be stable in that regard. He is making clear urine. We will continue to monitor. Urology department on board. 2. Acute on chronic kidney disease, likely obstructive uropathy. BUN and creatinine trending down slowly. 3. Fluid overload. Continue with same management. He has been getting Lasix by Nephrology Department. 4. Fluid overload, as above. 5. Subclinical hypothyroidism with TSH less than 10. Continue to monitor. 6. Generalized weakness and physical deconditioning. Continue physical therapy. 7. Altered mental status with global encephalopathy. This is much better. 8. History of advanced urothelial bladder carcinoma. Urology Department and Hematology Department on board. 9. Previous history of stomach adenocarcinoma and prostate cancer. Aware. 10. Hypokalemia, just mild today. I will monitor. 11. Borderline low hypomagnesemia, which has been replaced already and has been stable. 12. Hypocalcemia, resolved. 13. New onset atrial fibrillation, rapid ventricular response, converted back to sinus rhythm. Continue with low dose of Cardizem by mouth. 14. Difficile colitis. Continue with vancomycin by mouth. Infectious Disease Department on board. cc: Arsenio Kan MD
--- NOTE | 2019-09-28 10:28 | NEPHROLOGY PROGRESS NOTE ---
DATE: 09/28/2019 SUBJECTIVE: The patient is awake and alert. He is in no distress. His is at the bedside. OBJECTIVE: Vital Signs: Temperature 97.8 degrees, pulse 63, respiratory rate 17, blood pressure 112/38. Intake 268 mL, output 675 mL. General: Chronically ill-appearing, elderly gentleman resting in bed. Awake and alert. He is in no distress. HEENT: Normocephalic, atraumatic. BECKIE. Conjunctivae are pink. Oral mucosa moist. Neck: Supple without JVD. Cardiovascular: Regular rate and rhythm. Systolic murmur. Pulmonary: Equal excursion. Clear bilaterally. Abdomen: Soft with positive bowel sounds. : He has a percutaneous nephrostomy with bag that has some bloody urine. Extremities: No edema to the lower extremities pretibial today. He continues with some trace edema to the upper extremities. This appears improved from previous week. Lab Data: WBCs 16.4, hemoglobin 9.1. Sodium 133, potassium 3.4, CO2 of 27, creatinine 4.3 (4.4, 4.8). ASSESSMENT AND PLAN: Acute kidney injury secondary to obstructive uropathy and a solitary functioning kidney. His renal function with modest improvement over the last 48 hours. Urine output adequate. His intake has been fairly marginal though. He has no indications for intervention other than his current treatment plan. We will continue to follow along closely. 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 I discussed this with the family. nataliia Dictated by SHALONDA Resendiz for Terry Stapleton MD Face to face encounter, data reviewed, discussed with Shelly Espinoza on 09/28/18. I agree with the above assessment and plan of care. rg cc: Terry Stapleton MD [facility]
[2019-09-28] MEDS: MEGACE PO SCH ×2 (10:37→20:24)
[2019-09-28] MEDS: MERREM 500 MG in NS 50 ML IV SCH ×2 (10:37→22:52)
[2019-09-28] MEDS: ZYVOX 600 MG/D5W 600 MG/300 ML IVPB IV SCH ×2 (10:47→20:26)
--- NOTE | 2019-09-28 13:14 | HEMO/ONC PROGRESS NOTE ---
DATE: 09/28/2019 SUBJECTIVE: Mr. Patel is sitting up in bed this morning, being fed breakfast by his . He seems to be distant. However, he does look at me and answer questions when asked directly. The patient does answer questions appropriately. His states that he is still somewhat confused. His heart rate is now controlled. The patient has been diagnosed with Clostridium difficile over the weekend. He is continuing to have numerous bowel movements that are becoming more soft. He denies any pain. He still has some extremity edema. He has a gauze over his removed Port-A-Cath site. His Port-A-Cath was removed on Saturday in the room. No other significant events have occurred. OBJECTIVE: Vital Signs: Temperature 97.6 degrees, pulse rate 67, respiratory rate 14, blood pressure 120/41, O2 saturation 98% on nasal cannula at 2 L. He is in 0/10 pain. General: The patient is in no acute distress, lying comfortably in his bed. He is pleasantly confused. Cardiovascular: Normal S1, S2 heart rate and rhythm. The patient is back in normal sinus rhythm. Respiratory: Lung sounds are clear to auscultation. Normal respiratory effort. Abdomen: Soft, nondistended. No tenderness, including suprapubic. Musculoskeletal: No CVA tenderness. Neurological: Pleasantly confused. Can answer some questions appropriately. Follows commands. LABORATORY DATA: WBC 16.40, hemoglobin 9.1, hematocrit 29.7, platelet count 112,000. Sodium 133, potassium 3.4, creatinine 4.3, calcium 7.4, albumin 2.5. ASSESSMENT AND PLAN: 1. Metastatic urothelial cancer. The patient's treatment remains on hold at this time. The patient is improving. Not much to add from our standpoint. 2. Acute on chronic kidney injury, likely from obstructive uropathy. The patient's creatinine has stabilized. He has had nephrostomy tube placements, which have healed well. The patient is not in pain at either of those site. Nephrology and Urology are following. 3. Volume overload. The patient's extremities are improving. Continue the same management. 4. Generalized weakness and deconditioning. Continue protein shakes with the patient's meals. Encourage the patient to work with Physical Therapy when they are available. 5. Deep venous thrombosis prophylaxis. Keep the patient on intermittent pneumatic devices. Try and get him out of bed. 6. Fungemia. The patient has been diagnosed with yeast in the urine and the blood. Continue the patient on appropriate antibiotics per Dr. Wong. The patient's Port-A-Cath was removed. Antifungals per Dr. Wong. 7. Clostridium difficile. The patient was diagnosed with Clostridium difficile over the weekend. He is on oral vancomycin. Dictated by SHALONDA Alvarado for Benson Espinoza MD As above. Progress noted. Now with fungemia and C' diff colitis. Appreciate Dr. Wong input. Creatinine better, but not to baseline yet. Continue current management. Not much to add from Oncology standpoint. Performance status continues to decline. May need rehab after discharge. Benson Espinoza MD cc: Benson Espinoza MD MTDD
[2019-09-28] MEDS: MYCAMINE 100 MG in NS 100 ML IV SCH (16:31)
[2019-09-29] MEDS: VANCOCIN PO SCH ×4 (01:49→20:04)
[2019-09-29] MEDS: CARDIZEM PO SCH ×3 (04:11→16:17)
[2019-09-29 05:27] LABS: EOS# 0.22 X1000 (0.0-0.7); EOS% 1.7 % (0.0-10.0); HEMOGLOBIN 8.6 g/dL (14.0-18.0); IMM GRAN# 0.04 X1000 (0.0-0.04); IMM GRAN% 0.3 % (0.0-0.5); LYMPH# 2.57 X1000 (1.2-3.4); LYMPH% 19.5 % (20.5-51.1); MCH 26.7 PG (27-31); MCHC 30.7 g/dL (33-37); MONO# 0.32 X1000 (0.11-0.59); MONO% 2.4 % (1.7-9.3); MPV 10.9 FL (7.4-10.4); NEUT# 10.04 X1000 (1.4-6.5); NEUT% 76.1 % (42.2-75.2); PLT 94 X1000 (130-400); RBC 3.22 XMIL (4.7-6.1); RDW 15.6 % (11.5-14.5); WBC 13.19 X1000 (4.8-10.8)
[2019-09-29 05:44] LABS: ESTIMATED GFR 14
[2019-09-29 05:48] LABS: AGAP 17; ALB/GLOB RATIO 1.1; ALBUMIN 2.5 g/dL (3.5-5.0); ALKALINE PHOSPHATASE 126 U/L (32-122); BUN 62 mg/dL (8-22); CALCIUM 7.6 mg/dL (8.8-10.2); CHLORIDE 89 mmol/L (98-107); COSMO 287; GLUCOSE 87 mg/dL (70-104); GOT 8 U/L (10-34); GPT < 5 U/L (10-44); MAGNESIUM 1.7 mg/dL (1.5-2.7); PHOSPHORUS 5.2 mg/dL (2.7-4.5); POTASSIUM 3.2 mmol/L (3.5-5.1); SODIUM 135 mmol/L (136-145); TCO2 29 mmol/L (25-35); TOTAL BILIRUBIN 0.84 mg/dL (0.20-1.00); TOTAL PROTEIN 4.7 g/dL (6.3-8.3)
--- NOTE | 2019-09-29 08:08 | PROGRESS NOTE ---
DATE: 09/29/2019 Mr. Patel had a pretty good night. He is very weak. His was at the bedside, said that he has really not been able sit up he is just so weak. Their goal and the hope is to try and get him home when they can. She realizes he is too weak at this time. This is a 84-year-old who gives a history of Mr. Patel had generalized swelling, had been taking care per Dr. Floyd Green. He has been sleepy, very confused, generalized weakness. Brought him to the emergency room and evaluated. He has a history of stomach gastric cancer status post resection, adjuvant therapy, chemo and radiation. Also had prostate cancer status post a lot of radiation therapy. Subsequently, he has been diagnosed with urethral bladder cancer who is followed by Dr. Espinoza. Mr. Patel had multiple episodes of issues with his pelvis due to radiation. 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 He ended up having suprapubic catheter which is changed every month. He has had stent placement in the left ureter. According to daughter, actually tried putting it in both ureters, but only left successfully done so admitted with general weakness, bilateral hydronephrosis, worse on the left. The patient has a stent on the left. Acute on chronic renal failure, probably obstructive uropathy and then fluid overload. Abnormal thyroid function test. PHYSICAL EXAMINATION: General: He is resting comfortably. No pain at this time. Easy to arouse. Vital Signs: Temp 97.9 degrees, pulse 60, respirations 19, blood pressure 115/51. HEENT: Pupils are equal and round. Lungs: Are clear in all lung steele. Cardiovascular: Regular rhythm and rate without murmur or S3. Urine output is 600 mL. ASSESSMENT AND PLAN: 1. Bilateral hydronephrosis, worse on the left. Patient has been evaluated by Urology and I think the plan is for nephrostomy tube. He has a suprapubic catheter. 2. Electrolytes and acid-base balance look like they are acceptable. 3. Anemia is stable. 4. Hypertension. Continue follow blood pressures. 5. Oncology hematology is following. He has metastatic urethral cancer. Treatments remain on hold at this time. Work on his strength. 6. Acute on chronic kidney injury, likely from obstructive uropathy. Creatinine is stabilized. He has had nephrostomy tube placement and has healed fairly well and volume overload. Patient's extremities are improving. Swelling is going down. Generalized weakness, and deconditioning. Continue physical therapy. Deep venous thrombosis prophylaxis. He is on intermittent pneumatic devices. Fungemia. He was diagnosed with yeast in the urine and blood. Continue his antifungals and Clostridium difficile and so he is on p.o. vancomycin. 7. Review of his orders: He is on vancomycin 125 mg p.o. q.6 hours, Xanax 0.25 mg at bedtime, diltiazem 30 mg p.o. q.6 hours, meropenem 500 mg IV q.12, micafungin 100 mg IV q.24 hours and linezolid 600 mg IV q.12. LAB: From today, white count is down to 13,190, hematocrit is 28, hemoglobin 8.6, platelet count 94,000. Sodium 135, potassium 3.2, chloride 89, BUN is 62, creatinine 4.0, which is coming down. His creatinine had gotten up to 7.9. cc: Maximo Padilla MD
[2019-09-29] MEDS: MEGACE PO SCH ×2 (09:54→20:05)
[2019-09-29] MEDS: MERREM 500 MG in NS 50 ML IV SCH (09:54)
[2019-09-29] MEDS: ZYVOX 600 MG/D5W 600 MG/300 ML IVPB IV SCH ×2 (10:24→20:06)
--- NOTE | 2019-09-29 12:21 | INFECTIOUS DISEASE PROGRESS NO ---
DATE: 09/29/2019 PRESENT ILLNESS: The patient has Loli glabrata fungemia, urinary tract infections, possible pneumonia, and Clostridium difficile diarrhea. MEDICATIONS: This is day 4 of treatment with micafungin and meropenem and day 6 of treatment with Zyvox. This is day 3 of treatment with oral vancomycin. PHYSICAL EXAMINATION: Vital Signs: Temperature is 97.9 degrees, pulse 64, respirations 19, blood pressure 115/51. General: This is an ill-appearing elderly male. He is sleeping, but he was arousable today. Head/eyes/ears/nose/throat: No drainage noted from the nose or ears. I did not see any white patches in his mouth. Neck: No pain with movement. Lungs: Clear to auscultation. Cardiovascular: Heart rate is regular. Thorax, the patient had his Port-A-Cath removed from the upper right part of his chest. There is a dressing over that site. Abdomen: Soft and not tender. The patient has a suprapubic tube in place and 2 bilateral flank nephrostomy tubes in place. Neurologic: As mentioned above the patient was sleeping, but he was arousable and then he did follow request to move his extremities. LAB AND X-RAY: [place] [id number], hemoglobin 8.6, and platelet count 94,000. Creatinine is 4. GFR is 14. Alkaline phosphatase is 126. There is no new radiographic study at the present time. ASSESSMENT AND PLAN: The patient has a Loli glabrata fungemia which I plan to continue treating with micafungin. As for the patient's pneumonia, I am going to continue with meropenem, but with the patient's platelet count dropping, I am going to have to stop the Zyvox. Also for the patient's urinary tract infections and possible pneumonia, I am going to continue meropenem but as mentioned above, stop Zyvox because of the patient's decrease in platelets. Finally for the patient's Clostridium difficile diarrhea, I am going to continue with p.o. vancomycin. COMORBIDITIES: The patient is elderly he has coronary artery disease, bladder cancer, and end- stage renal disease. cc: Toni Wong MD
--- NOTE | 2019-09-29 14:25 | NEPHROLOGY PROGRESS NOTE ---
DATE: 09/29/2019 SUBJECTIVE: Patient sitting up in bed and he is awake. His states that physical therapy sat him on side of the bed but he has been unable to ambulate yet. OBJECTIVE: Vital Signs: Temperature 97.9 degrees, pulse 64, respiratory rate 19, blood pressure 115/51, intake 590 mL, output 400 mL. General: Elderly gentleman in bed no acute distress. HEENT: Normocephalic, atraumatic. BECKIE. Neck: Supple without JVD. Cardiovascular: Regular rate and rhythm, no murmur. Pulmonary: Clear bilaterally, equal excursion. Abdomen: Soft, positive bowel sounds. : He has bilateral nephrostomy tubes. The bag with clear urine. Extremities: Trace lower extremity edema. Continues with trace to 1+ upper extremity edema again continues to improve. Integumentary: Skin is warm and dry. Neuro: Awake and alert. LAB DATA: Sodium 135, potassium 3.2, CO2 of 29, creatinine 4.0, his albumin is 2.5. ASSESSMENT/PLAN: Acute kidney injury secondary to obstructive uropathy and solitary functioning kidney. Renal function with modest improvement. Creatinine is down to 4.0 today. Again he is not a candidate for renal replacement therapy. We have discussed this with the family. Will continue to monitor and follow along in the hospital and assist medically. Dictated by SHALONDA Resendiz for Terry Stapleton MD cc: Terry Stapleton MD
[2019-09-29] MEDS: MYCAMINE 100 MG in NS 100 ML IV SCH (16:20)
[2019-09-30] MEDS: CARDIZEM PO SCH ×5 (00:16→21:44)
[2019-09-30] MEDS: MERREM 500 MG in NS 50 ML IV SCH ×3 (00:16→21:44)
[2019-09-30] MEDS: VANCOCIN PO SCH ×4 (02:19→21:44)
[2019-09-30] MEDS: MEGACE PO SCH ×2 (08:58→21:44)
[2019-09-30] MEDS ORDERED: NS 400 ML IV ONE (09:07)
--- NOTE | 2019-09-30 09:21 | HEMO/ONC PROGRESS NOTE ---
DATE: 09/30/2019 SUBJECTIVE: Mr. Patel is asleep in his bed this morning. When I enter, he awakes easily to my touch and voice. His and a daughter are at bedside. The patient has a slightly depressed affect. He does have some slight confusion. He calls out for his if he cannot see her. The patient denies pain. He states he feels good. No acute events have occurred overnight. The patient continues to remain on contact precautions. OBJECTIVE: Vital Signs: Temperature 97.3 degrees, pulse rate 62, respiratory rate 18, blood pressure 120/48, O2 saturation 95% on nasal cannula at 2 L. He is in 0/10 pain. Physical Examination: General: The patient is pleasantly confused, in no acute distress. HEENT: Sclerae are anicteric. PERRLA. Oral mucosa is normal. Cardiovascular: Normal S1, S2. Heart rate and rhythm regular. No murmurs noted. Respiratory: Lung sounds are clear to auscultation. Normal respiratory effort. Abdomen: Soft, nondistended, nontender. Normal bowel sounds. Neurological: He is pleasantly confused but can be redirected easily. Follows commands. Lower extremities continue to have 2+ pitting edema. Upper extremities, the edema has resolved. : Bilateral nephrostomy tubes and suprapubic catheter. Laboratory: No labs drawn today. ASSESSMENT: 1. Metastatic urothelial cancer. The patient's treatment is on hold at this time as he is getting stronger and improving. 2. Acute on chronic kidney injury, likely from obstructive uropathy. He has been followed by urology and nephrology. His creatinine has stabilized, although not back to baseline. 3. Deep venous thrombosis prophylaxis. The patient is at risk for deep venous thrombosis, especially since being on Megace. The patient is not on any anticoagulations. I noticed this morning, he does not have any pneumatic devices on. Please place these on the patient. Continue to try and get him out of bed. 4. Fungemia. The patient has been diagnosed with yeast in the urine and blood. Continue treatment per Dr. Wong. Patient's Port-A-Cath was removed. 5. Clostridium difficile. The patient has remained on oral vancomycin. His diarrhea has slowed down, according to his . Dictated by SHALONDA Alvarado for Benson Espinoza MD [facility]
--- NOTE | 2019-09-30 11:33 | INFECTIOUS DISEASE PROGRESS NO ---
DATE: 09/30/2019 PRESENT ILLNESS: The patient has Loli glabrata fungemia, urinary tract infections, Clostridium difficile diarrhea, and possibly pneumonia. MEDICATIONS: This is day 8 of Zyvox and micafungin, day 5 of meropenem, and day 4 of p.o. vancomycin. PHYSICAL EXAMINATION: Vital Signs: Temperature is 97.3 degrees, pulse 62, respirations 18, blood pressure 120/48. Generally: This is an ill-appearing elderly male. He is in no acute distress. Head/eyes/ears/nose/throat: He can hear my spoken words and see near objects. He does not have any white coating on his tongue. Neck: No pain with movement. Lungs: Clear to auscultation. Cardiovascular: Heart rate is regular. Thorax: The patient had a Port-A-Cath removed. That site is not erythematous or purulent. Abdomen: Soft and not tender. The patient has a suprapubic tube in place and 2 bilateral flank nephrostomy tubes in place. The tube sites are not erythematous or purulent. Neurologic: The patient is arousable. He is able to talk and he can move his extremities. LAB AND X-RAY: [place] [id number], hemoglobin 8.6, platelet count 94,000. Creatinine is 4. GFR is 14. Clostridium difficile toxin is positive. ASSESSMENT AND PLAN: Patient has Loli glabrata fungemia and I plan to continue treating it with micafungin. As regards to the patient's pneumonia, I am going to continue meropenem but I am going to stop Zyvox because the patient's platelet count is falling. As regarding the patient's urinary tract infections, I am going to continue meropenem, and for the patient's Clostridium difficile, I am going to continue p.o. vancomycin. I ordered a chest x-ray. COMORBIDITIES: The patient is elderly and he has coronary artery disease, bladder cancer, and end- stage renal disease. cc: MD JILLIAN Dockery
--- NOTE | 2019-09-30 14:21 | Diag Imaging Result Doc PS360 ---
EXAM: CHEST-1 VIEW INDICATION: pneumonia TECHNIQUE: One view COMPARISON: 09/25/2019 FINDINGS: There has been interval removal of the right chest port. Bilateral moderate-sized pleural effusions are approximately stable as compared to the previous study. There are interstitial and airspace infiltrates indicating pulmonary edema +/- pneumonia bilaterally. This is approximately stable. There is evidence of pulmonary venous congestion. The cardiac silhouette is stable. IMPRESSION: Pleural effusions, pulmonary venous congestion, and pulmonary edema +/- pneumonia that is approximately stable. Electronically signed by Mandeep Stanley 09/30/2019 2:18 PM
[2019-09-30] MEDS: MYCAMINE 100 MG in NS 100 ML IV SCH (16:00)
--- NOTE | 2019-09-30 16:30 | PROGRESS NOTE ---
DATE: 09/30/2019 SUBJECTIVE: Mr. Patel is still pretty weak. He is feeling overall better. He had difficulty sitting up on the side of the bed. I talked to his daughter at length, and they are hoping to get him home. They understand his poor prognosis. OBJECTIVE: Temperature 97.7 degrees, pulse 64, respirations 16, and blood pressure 128/53. Pupils are equal and round. Lungs are clear in all lung steele. Cardiovascular regular rhythm and rate without murmur or S3. Abdomen is soft. Skin is warm and dry. DIAGNOSTIC: Chest x-ray with pleural effusions, pulmonary venous congestion, and pulmonary edema. ASSESSMENT AND PLAN: 1. Metastatic urethral cancer. Treatment on hold at this time. 2. Acute on chronic kidney injury likely from obstructive uropathy. Patient now has a solitary renal function. He has been followed by Urology and Nephrology. He does not have any pain at this time. Creatinine is stabilized, but will be expected to get worse. 3. Volume overload. Patient's extremities the swelling has gone down a little bit. Lower extremities continue to have significant edema. 4. Generalized weakness and deconditioning. He has been treated for fungemia. The family wants him to go home, and I think they want to go with just comfort care. He has been treated for Clostridium difficile. They are hoping maybe he can go home on Saturday. We will see if we can get those arrangements made. We will continue right now the micafungin 100 mg IV q.24 hours, meropenem 500 mg IV q.12, Xanax 0.25 mg at bedtime, and vancomycin 125 mg p.o. q.6 hours. cc: Maximo Padilla MD
--- NOTE | 2019-09-30 18:48 | NEPHROLOGY PROGRESS NOTE ---
DATE: 09/30/2019 SUBJECTIVE: He is about the same. Somewhat somnolent and confused. The states he has sat on the side of the bed and eaten some. They are hoping to go home with home health or hospice today. OBJECTIVE: Vital Signs: Blood pressure 84/40, heart rate 69, respiration 18, afebrile. General: No acute distress. Skin: Warm and dry. Pale. Pupils are equal. Neck: Neck veins are not appreciated. Heart: Regular. No gallops. Lungs: Equal. No crackles. Abdomen: Benign. Extremities: 1+ edema. No clubbing or cyanosis. IMPRESSION: Acute kidney injury overlying chronic kidney disease. Obstructive uropathy. No new labs today. Conservative care from the nephrology perspective. We will sign off but if we can be of further assistance, please do not hesitate to call. cc: Terry Stapleton MD
[2019-09-30] MEDS: XANAX PO PRN (22:40)
[2019-10-01] MEDS: VANCOCIN PO SCH ×4 (03:58→22:01)
[2019-10-01] MEDS: CARDIZEM PO SCH ×4 (03:58→22:01)
[2019-10-01] MEDS: MEGACE PO SCH ×2 (09:07→22:01)
[2019-10-01] MEDS: MERREM 500 MG in NS 50 ML IV SCH ×3 (09:07→22:01)
--- NOTE | 2019-10-01 14:37 | INFECTIOUS DISEASE PROGRESS NO ---
DATE: 08/31/2019 PRESENT ILLNESS: The patient has Loli glabrata fungemia, urinary tract infection, Clostridium difficile diarrhea, and possibly pneumonia. MEDICATIONS: This is day 9 of treatment with Zyvox and micafungin, day 6 of treatment with meropenem and day 5 of treatment with vancomycin p.o. PHYSICAL EXAMINATION: Vital Signs: Temperature is 97.8 degrees, pulse 84, respirations 19, blood pressure is 126/46. General: This is an ill-appearing elderly male. He is in no acute distress. Head/eyes/ears/nose/throat: He can hear my spoken words and see near objects. He does not have any white patches in his mouth. Neck: Neck no pain with movement. Lungs: Clear to auscultation. Cardiovascular: The patient's heart rate is occasionally regular and then there are other times when it is irregular and it looks like he is in atrial fibrillation. Thorax: Thorax the patient had his right-sided Port-A-Cath removed. The site from where it was removed is not erythematous, swollen or draining. Abdomen: Soft and nontender. The patient has a suprapubic tube in place and bilateral nephrostomy tubes in place. Neurologic: The patient is arousable. He can move his extremities. There is no tremor. LAB AND X-RAY: This morning there does not seem to be any new lab. Chest x-ray from yesterday showed pleural effusions, pulmonary venous congestion and possible pneumonia. ASSESSMENT AND PLAN: Patient has fungemia urinary tract infection and Clostridium difficile diarrhea, and possibly pneumonia. My plan is to continue with Zyvox, micafungin, meropenem and p.o. vancomycin. For tomorrow I have ordered a CBC, a BMP and for today I have ordered a procalcitonin level. COMORBIDITIES: Patient is elderly and he has coronary artery disease, bladder cancer, and end- stage renal disease. cc: Toni Wong MD
--- NOTE | 2019-10-01 15:38 | PROGRESS NOTE ---
DATE: 10/01/2019 Mr. Patel says he is feeling fine now. He is still very weak. Family would like to take him home tomorrow. I discussed this with Dr. Espinoza. We will send him home just for comfort care and see if we can get things set up to go home tomorrow afternoon. His IV came out and so Dr. Wong is following along with infectious disease. We are treating him for fungemia and a urinary tract infection, Clostridium difficile diarrhea, and possible pneumonia. This is the 9th day of Zyvox and micafungin, the 6th day of treatment with meropenem, and 5th day of treatment with vancomycin p.o. I will discuss with Dr. Wong to the plans. ASSESSMENT AND PLAN: 1. Metastatic urethral cancer. 2. 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 The patient has solitary renal function, followed by urology and nephrology. 3. He came in with volume overload. 4. General weakness, very weak. They would like to go home for just comfort care. He recently had bilateral nephrostomy tubes placed and he has a suprapubic catheter, so we will discuss with Dr. Garibay whether that suprapubic catheter should be changed, taken out, or what he wants to do. Creatinine is at 4.0. cc: Maximo Padilla MD
[2019-10-01] MEDS: MYCAMINE 100 MG in NS 100 ML IV SCH (16:28)
[2019-10-01] MEDS ORDERED: CARDIZEM PO ONE (17:07)
[2019-10-02] MEDS: VANCOCIN PO SCH ×3 (03:26→15:10)
[2019-10-02] MEDS: CARDIZEM PO SCH ×2 (03:26→09:52)
[2019-10-02 06:52] LABS: CALCIUM 7.6 mg/dL (8.8-10.2); CREATININE 3.2 mg/dL (0.7-1.2); POTASSIUM 3.2 mmol/L (3.5-5.1)
[2019-10-02] MEDS: MEGACE PO SCH ×2 (07:51→14:59)
[2019-10-02 08:32] LABS: BASO# 0.01 X1000 (0.0-0.2); BASO% 0.1 % (0.0-0.8); EOS# 0.09 X1000 (0.0-0.7); EOS% 0.9 % (0.0-10.0); HEMATOCRIT 25.1 % (42.0-52.0); HEMOGLOBIN 7.7 g/dL (14.0-18.0); IMM GRAN# 0.03 X1000 (0.0-0.04); IMM GRAN% 0.3 % (0.0-0.5); LYMPH# 2.82 X1000 (1.2-3.4); LYMPH% 28.9 % (20.5-51.1); MCH 26.4 PG (27-31); MCHC 30.7 g/dL (33-37); MONO# 0.17 X1000 (0.11-0.59); MONO% 1.7 % (1.7-9.3); MPV 11.5 FL (7.4-10.4); NEUT# 6.64 X1000 (1.4-6.5); NEUT% 68.1 % (42.2-75.2); PLT 43 X1000 (130-400); RBC 2.92 XMIL (4.7-6.1); RDW 14.9 % (11.5-14.5); WBC 9.76 X1000 (4.8-10.8)
[2019-10-02 12:01] VITALS: BP 98/31
--- NOTE | 2019-10-02 14:05 | DISCHARGE SUMMARY ---
ADMISSION DATE: 09/19/2019 DISCHARGE DATE: 10/02/2019 HISTORY AND HOSPITAL COURSE: This is an 84-year-old patient Dr. Floyd Green, came to the emergency room on 09/19/2019. Daughter and are at the bedside, gave a history, tells Mr Patel was having generalized swelling. However, he has been taking care by Dr. Green. He had been sleepy, very confused and generalized weakness, brought to the emergency room. An 84- year-old male with a remote history of stomach gastric cancer and status post resection with adjuvant chemotherapy. He also had prostate cancer status post radiation. Subsequently, he has been diagnosed with urethral bladder cancer, followed by Dr. Espinoza and Dr. Carlos Garibay. He has a suprapubic catheter. He has had multiple issues with his pelvis due to radiation therapy, a lot of fibrosis, ended up having suprapubic catheter which he changes every month. So, admitted with generalized weakness, mental status, likely underlying infection, urinary infection, bilateral hydronephrosis, worse on the left. The patient has a stent on the left, however, continues to develop hydronephrosis. Started on broad-spectrum antibiotics. He has acute on chronic renal failure presumed from bilateral obstructive urethropathy and felt he had some volume overload and abnormal thyroid function test, so was admitted. Dr. Garibay was following and he basically required bilateral percutaneous nephrostomy tubes and these were placed, renal function unfortunately continued to deteriorate. Nephrology was asked to see. He had acute on chronic kidney disease stage IIIB, bilateral hydronephrosis with history of urethral cancer, suprapubic catheter in place and he was able to eat some but very weak, and Dr. Espinoza was following. He has metastatic urethral cancer. Treatments remain on hold while he was receiving treatment. He was treated for Clostridium difficile, stools were positive, and he was treated for pneumonia. Family and patient discouraged by renal function, lack of improvement and his general weakness and they wanted to just pursue comfort measures. His creatinine was 3.2, but they want to go home, so I am going to let him go home. They do not want hospice, they want home health. DISCHARGE MEDICATIONS: He can take Tylenol 650 mg every 6 hours, Xanax 0.25 mg p.o. at bedtime p.r.n., Cardizem 30 mg p.o. q.6 hours, Megace 10 mg b.i.d., and we will give him some Flagyl, maybe make him more comfortable with the C difficile, Flagyl 250 mg p.o. q.8 hours, gave 20 tablets. He has some Megace I think at home he wants to try for appetite. cc: Maximo Padilla MD
[2019-10-02] MEDS: MERREM 500 MG in NS 50 ML IV SCH (14:59)
== END 2019-10-02 15:24 | disposition home health service (06) | DRG 686 ==
LOC: ED 10:56 → EDIPHOLD 15:28 → SUATTDRO 15:28 → 3N 18:21 → 2N 09-24 19:55 → 1N 09-27 16:56
PROVIDERS: ATTEND Emergency Medicine